=== PATIENT | male | born 1945 | race Caucasian/White ===

== ENCOUNTER 2021-04-23 10:36 | Outpatient (REF) | payer OTHER, SELFPAY ==
[2021-04-23 13:51] LABS: MANUAL DIFF FLAG NO
[2021-04-23 14:03] LABS: Basophils Absolute Auto 0.1 X10*3/uL (0.0-0.2); Basophils Percent Auto 0.9 % (0-2); Eosinophils Absolute Auto 0.1 X10*3/uL (0.0-0.4); Eosinophils Percent Auto 1.6 % (0-4); Hematocrit 39.4 % (42-52); Hemoglobin 13.6 g/dl (14.0-18.0); Imm Gran Abs Auto 0.03 X10*3/uL (0.00-0.03); Imm Gran Pct Auto 0.4 % (0.0-0.4); Lymphocytes Absolute Auto 2.5 X10*3/uL (1.2-4.9); Lymphocytes Percent Auto 31.3 % (20-40); Mean Corpuscular HGB Conc 34.5 g/dl (31.0-36.0); Mean Corpuscular Hemoglobin 31.3 pg (27.0-33.0); Mean Corpuscular Volume 90.6 fL (80-98); Mean Platelet Volume 10.5 fL (9.4-12.4); Monocytes Absolute Auto 0.8 X10*3/uL (0.1-1.2); Monocytes Percent Auto 9.3 % (2-11); Neutrophils Absolute Auto 4.6 X10*3/uL (2.0-8.3); Neutrophils Percent Auto 56.5 % (45-73); Platelet Count 264 X10*3/uL (160-400); Red Blood Count 4.35 X10*6/uL (4.60-5.80); Red Cell Distribution Width 12.8 % (11.0-16.0); White Blood Count 8.1 X10*3/uL (4.8-10.8)
[2021-04-23 14:21] LABS: Alanine Aminotransferase 25 U/L (0-40); Albumin Level 4.2 g/dL (3.5-5.0); Alkaline Phosphatase 54 U/L (39-117); Anion Gap 15 (12-20); Aspartate Amino Transferase 19 U/L (5-37); Bilirubin Total 0.9 mg/dL (0.0-1.0); Blood Urea Nitrogen 12 mg/dL (9-16); Calcium 9.1 mg/dL (8.4-10.2); Carbon Dioxide 24 mmol/L (22-29); Chloride 104 mmol/L (96-108); Cholesterol 197 mg/dL; Estimated Glomerular Filt Rate > 60; Glucose Fasting 99 mg/dL (60-99); HDL Cholesterol 43 mg/dL; LDL Cholesterol Calculated 132 mg/dl; Potassium 3.8 mmol/L (3.3-5.1); Sodium 139 mmol/L (135-145); Total Protein 7.3 g/dL (6.5-8.0); Triglycerides 113 mg/dL
[2021-04-23 14:42] LABS: Prostate Specific Antigen 2.47 ng/mL (<0.05-4.0)
== END 2021-04-23 10:37 | disposition home or self-care (01) ==
LOC: HO.10HDL 10:36
PROVIDERS: Visit Provider Internal Medicine Medical Oncology
DX: I10 Essential (primary) hypertension (principal); E66.3 Overweight; Z12.5 Encounter for screening for malignant neoplasm of prostate
CPT/HCPCS: 36415; 80053; 80061; 84153; 85025

== ENCOUNTER 2021-09-18 08:11 | Day surgery (SDC) | payer OTHER, SELFPAY ==
[2021-09-09 14:01] VITALS: BMI 29.5
--- NOTE | 2021-09-17 10:04 | P.CONAN_ITS ---
Documented by User: Nadiya Gomez NP 09/17/21 10:05 HPI - Anesthesia Eval Consult details Narrative: 75yo M for Colonoscopy [facility] Past Medical History Medical History Arthritis COVID-19 vaccine series completed HTN (hypertension) Skin cancer Surgical History Surgical History Hx of cataract extraction Social History Social History Are you a primary social worker palliative care to a significant other at home: No Do you presently have visiting nurse or other home services: No Patient Tobacco Use Status: Never used Tobacco Use of substances other than those prescribed or required for medical reasons: No Have you been hit, kicked, punched, or otherwise hurt by someone within the past year? If so, by whom?: No Are you DNR?: No Advance Directives: No Advance Directives Information Provided: Yes (brochure mailed) Advance Directives on File: No Recently lost weight without trying: No Eating poorly because of decreased appetite: No Nutrition Risks: No Nutritional Risk Poor oral hygiene: No Meds Allergies Allergy/AdvReac Type Severity Reaction Status Date / Time No Known Allergies Allergy Verified 09/18/21 08:32 Home Medications Medication Instructions Recorded Confirmed Last Taken Type amlodipine 10 mg tablet 10 mg PO DAILY 09/09/21 09/09/21 09/18/21 06:30 History hydrochlorothiazide 12.5 mg tablet 12.5 mg PO DAILY 09/09/21 09/09/21 Unknown History Exam Exam Date and Time: September 17, 2021 1004 Height,Weight and Vital Signs: Height 5 ft 6 in Weight 83.007 kg Pertinent Lab Results Pertinent Lab Results: Laboratory Tests 04/23/21 04/23/21 10:48 10:48 WBC 8.1 Hgb 13.6 L Hct 39.4 L Plt Count 264 Sodium 139 Potassium 3.8 Chloride 104 Carbon Dioxide 24 BUN 12 Creatinine 0.98 Assessment and Plan Assessment Anesthesia Assessment: Chart Reviewed Documented by User: Tenzin Alex MD 09/18/21 10:08 [facility] Past Medical History Medical History Arthritis COVID-19 vaccine series completed HTN (hypertension) Skin cancer Family History Family history of problems with anesthesia: No Surgical History Surgical History Hx of cataract extraction History of Problems with Anesthesia: No Social History Social History Are you a primary social worker palliative care to a significant other at home: No Do you presently have visiting nurse or other home services: No Patient Tobacco Use Status: Never used Tobacco Use of substances other than those prescribed or required for medical reasons: No Have you been hit, kicked, punched, or otherwise hurt by someone within the past year? If so, by whom?: No Are you DNR?: No Advance Directives: No Advance Directives Information Provided: Yes (brochure mailed) Advance Directives on File: No Recently lost weight without trying: No Eating poorly because of decreased appetite: No Nutrition Risks: No Nutritional Risk Poor oral hygiene: No Meds Allergies Allergy/AdvReac Type Severity Reaction Status Date / Time No Known Allergies Allergy Verified 09/18/21 08:32 Home Medications Medication Instructions Recorded Confirmed Last Taken Type amlodipine 10 mg tablet 10 mg PO DAILY 09/09/21 09/09/21 09/18/21 06:30 History hydrochlorothiazide 12.5 mg tablet 12.5 mg PO DAILY 09/09/21 09/09/21 Unknown History Exam Airway Mallampati Class: II TM Dist: >3cm Neck ROM: Full Loose/Missing/Broken Teeth: No Heart: ok Lungs: ok Assessment and Plan Final Anesthetic Review Family History of Problems with Anesthesia: No History of Problems with Anesthesia: No NPO: Yes ASA Class: II Final Preanesthetic Review: No Changes in Pt Med Stat, Meds/Allgs Chart Reviewed, Consent Obtained/Reviewed and Anes Risks/Benef Reviewed Patient Risk: Intermediate Procedure Risk: Low Anesthetic Plan Anesthetic Plan: MAC: and Agree w/ Assess. and Plan Disposition: Standard PACU
[2021-09-18 08:44] VITALS: BP 169/93; PULSE 88; RESP 16; TEMP 37.1; O2SAT 94
[2021-09-18] MEDS: Lactated Ringers 1,000 ML 100 ML IVCONT (08:59)
--- NOTE | 2021-09-18 09:55 | MHC.SHP ---
Pre-Procedural Eval Section A Date of Service: 09/18/21 Section B Chief Complaint: screening Details of Present Illness: see h&p no changes Relevant Family History (Specify if Yes): No Relevant Social History: None Present Medications: see Short Stay Collaborative assessment Medical History: No relevant PMH History of Previous Operations: No relevant previous surgery Allergies: Allergies Allergy/AdvReac Type Severity Reaction Status Date / Time No Known Allergies Allergy Verified 09/18/21 08:32 Review of Systems Sugical H&P ROS: Negative: Constitution, Cardiovascular, Respiratory, Neurological, Psychiatric, Hem-Onc, Allergic/Immunologic, Gastrointestinal, Genitourinary, Musculoskeletal, Integumentary, Endocrine and Eyes/Ears/Nose/Throat Exam Surgical H&P Exam: Normal: HEENT, Normal: Heart, Normal: Lungs, Normal: Extremities, Normal: Abdomen, Normal: Skin and Normal: Neurological Plan Diagnosis/Plan: Unchanged I have reviewed the history and physical and performed a pertinent physical examination on my patient. No changes have occurred unless specified.
--- NOTE | 2021-09-18 10:29 | PM.OP ---
Brief Operative Note Date of Service: 09/18/21 Pre-op diagnosis: screening Post-op diagnosis: same (colon polyp) Procedure: colonoscopy Surgeon: Young Brown Anesthesia: MAC Was an Cartography Professor used for this Procedure?: No Estimated blood loss (mL): 2 Pathology: other (polyp cecum) Condition: stable Disposition: PACU
[2021-09-18 10:33] VITALS: TEMP 36.5
[2021-09-18 10:44] VITALS: BP 86/51; PULSE 55; RESP 18; O2SAT 92
[2021-09-18 10:45] VITALS: BP 105/63; PULSE 59; RESP 18; O2SAT 93
[2021-09-18 10:48] VITALS: BP 110/59; PULSE 54; RESP 16; TEMP 36.3; O2SAT 96
--- NOTE | 2021-09-18 11:12 | OP_ITS ---
SURGEON: Young Brown MD INDICATIONS: Colon cancer screening. PREOPERATIVE DIAGNOSIS: POSTOPERATIVE DIAGNOSIS: PROCEDURE PERFORMED: Colonoscopy to the terminal ileum with biopsy. ESTIMATED BLOOD LOSS: COMPLICATIONS: ANESTHESIA: ASSISTANTS: SPECIMENS: MEDICATIONS: Monitored anesthesia care. DESCRIPTION OF PROCEDURE: History and physical were performed. The risks and benefits of the procedure were explained to the patient. Informed consent was obtained. The patient was placed in the left lateral decubitus position. A digital rectal exam was performed and was found to be normal. The Olympus pediatric video colonoscope was introduced into the rectum and advanced to the cecum without difficulty. The cecum was identified by transillumination, palpation, and identification of ileocecal valve. Examination was performed. The scope was removed. He tolerated the procedure well and was sent to recovery area in stable condition. FINDINGS: The terminal ileum was normal. The visualized colonic mucosa was normal just above the ileocecal valve. In the cecum, was a less than 5 mm sessile polyp, which was removed with biopsy forceps. No other polyps were identified. There was [id number] sigmoid diverticulosis. Retroflexed examination showed small internal hemorrhoids. The quality of the prep was good. IMPRESSION: Colon polyp. RECOMMENDATION: Follow up biopsy results. MD GRACE Gong/SARA / [id number]
== END 2021-09-18 11:31 | disposition home or self-care (01) ==
PROVIDERS: PCP Internal Medicine Medical Oncology; Visit Provider Internal Medicine Gastroenterology
PROC: 0DJD8ZZ Inspection of Lower Intestinal Tract, Via Natural or Artificial Opening Endoscopic (ICD-10-PCS; CPT 45378; principal; 2021-09-18 09:20)
DX: Z12.11 Encounter for screening for malignant neoplasm of colon (principal); D12.0 Benign neoplasm of cecum; K57.30 Diverticulosis of large intestine without perforation or abscess without bleeding; K64.8 Other hemorrhoids; I10 Essential (primary) hypertension; M19.042 Primary osteoarthritis, left hand; M19.041 Primary osteoarthritis, right hand; Z85.828 Personal history of other malignant neoplasm of skin; Z79.899 Other long term (current) drug therapy
CPT/HCPCS: 45380; 88305; J3010

== ENCOUNTER 2022-12-02 09:10 | Outpatient (REF) | payer MEDICARE, SELFPAY ==
[2022-12-02 10:27] LABS: MANUAL DIFF FLAG NO
[2022-12-02 10:33] LABS: Basophils Absolute Auto 0.1 X10*3/uL (0.0-0.2); Basophils Percent Auto 0.7 % (0-2); Eosinophils Absolute Auto 0.2 X10*3/uL (0.0-0.4); Eosinophils Percent Auto 2.4 % (0-4); Hematocrit 40.3 % (42.0-52.0); Imm Gran Abs Auto 0.01 X10*3/uL (0.00-0.03); Imm Gran Pct Auto 0.1 % (0.0-0.4); Lymphocytes Absolute Auto 2.4 X10*3/uL (1.2-4.9); Lymphocytes Percent Auto 33.1 % (20-40); Mean Corpuscular HGB Conc 34.7 g/dl (31.0-36.0); Mean Corpuscular Hemoglobin 30.8 pg (27.0-33.0); Mean Corpuscular Volume 88.8 fL (80.0-98.0); Mean Platelet Volume 10.3 fL (9.4-12.4); Monocytes Absolute Auto 0.7 X10*3/uL (0.1-1.2); Monocytes Percent Auto 8.8 % (2-11); Neutrophils Absolute Auto 4.1 x10*3/uL (2.0-8.3); Neutrophils Percent Auto 54.9 % (45-73); Platelet Count 268 X10*3/uL (160-400); Red Blood Count 4.54 X10*6/uL (4.60-5.80); White Blood Count 7.4 X10*3/uL (4.8-10.8)
[2022-12-02 10:52] LABS: Alanine Aminotransferase 20 U/L (0-40); Alkaline Phosphatase 50 U/L (39-117); Anion Gap 11 (12-20); Aspartate Amino Transferase 17 U/L (5-37); Bilirubin Total 0.8 mg/dL (0.0-1.0); Blood Urea Nitrogen 13 mg/dL (9-16); Calcium 9.1 mg/dL (8.4-10.2); Carbon Dioxide 27 mmol/L (22-29); Chloride 107 mmol/L (96-108); Cholesterol 207 mg/dL; Estimated Glomerular Filt Rate > 60; Glucose Fasting 91 mg/dL (60-99); HDL Cholesterol 40 mg/dL; LDL Cholesterol Calculated 145 mg/dl; Potassium 3.9 mmol/L (3.3-5.1); Sodium 141 mmol/L (135-145); Triglycerides 114 mg/dL
[2022-12-02 11:11] LABS: Prostate Specific Antigen 2.93 ng/mL (<0.05-4.0)
== END 2022-12-02 09:11 | disposition home or self-care (01) ==
LOC: HO.10HDL 09:10
PROVIDERS: Visit Provider Internal Medicine Medical Oncology
DX: Z12.5 Encounter for screening for malignant neoplasm of prostate (principal); I10 Essential (primary) hypertension; E66.9 Obesity, unspecified
CPT/HCPCS: 36415; 80053; 80061; 84153; 85025

== ENCOUNTER → 2023-01-21 09:05 | Outpatient (BNVA) | payer MEDICARE, SELFPAY | PROVIDERS: PCP Internal Medicine Medical Oncology; Referring Provider Internal Medicine Medical Oncology; Visit Provider Surgery | DX: K40.90 Unilateral inguinal hernia, without obstruction or gangrene, not specified as recurrent (principal); I10 Essential (primary) hypertension | CPT/HCPCS: 99202 ==

== ENCOUNTER → 2023-06-01 07:58 | Outpatient (REF) | payer MEDICARE, SELFPAY ==
--- NOTE | 2023-06-01 08:01 | CA_ITS ---
Transthoracic Echocardiogram Patient (Last, First, Middle): Jarett Maynard J Gender: Male Date of : 1945 Age: 77 Procedure Date: 06/01/2023 Procedure Type: Transthoracic Echocardiogram Location: OP Height: 167.64 cm Weight: 78.47 kg BSA: 1.88 m2 Heart Rate: bpm BP: 145 / 75 mmHg Associate Professor Of Archaeology: SONIA/SUSAN Referring MD: Zacarias Zurita MD Symptoms: R01.1 SYSTIC MURMUR Study Quality: Fair Conclusions: - 1. Normal LV ejection fraction of 60 65% with moderate LVH with elevated filling pressures 2. Mildly dilated left atrium 3. Jkfx-we-wqbbhsxr aortic stenosis 4. Mildly dilated ascending aorta at 3.9 cm 5. Normal RV systolic pressure 6. No pericardial effusion Findings Left Ventricle Normal left ventricular size and systolic function. There is moderately increased left ventricular wall thickness. The visually estimated ejection fraction is between 60-65%. Spectral Doppler is indicative of an impaired relaxation filling pattern. Elevated left atrial and left ventricular end diastolic pressures. E/E prime ratio is >15, consistent with elevated filling pressures. Right Ventricle Normal right ventricular cavity size and systolic function. Atria The left atrium is mildly dilated. There is lipomatous hypertrophy of the interatrial septum. There is no evidence of interatrial shunt. The right atrium is likely dilated. Aortic Valve There is mild calcification of the aortic valve. There is mild thickening of the aortic valve. There is mild to moderate aortic valve stenosis. The peak aortic gradient is 16 mmHg.The mean gradient is 9 mmHg. There is no aortic valve regurgitation. Mitral Valve There is mild anterior and moderate posterior mitral leaflet thickening. There is mild mitral annular calcification. There is trace mitral valve regurgitation. There is no mitral valve stenosis. Pulmonic Valve The pulmonic valve was not well visualized. Tricuspid Valve Likely normal tricuspid valve structure and function. There is mild tricuspid valve regurgitation. The right ventricular systolic pressure is normal. The right ventricular systolic pressure is 30 mmHg. Normal right atrial pressure. There is no evidence of pulmonary hypertension. Great Vessels The pulmonary artery was not well visualized. There is mild dilatation of the ascending aorta measuring 3.90 cm. Venous The inferior vena cava is normal in size and collapses greater than 50% with inspiration. Pericardium/Pleural There is no evidence of pericardial effusion. Prior Study Comparison No prior study available for comparison. Measurements 2D Linear Measurements IVSd: 1.41 0.6-0.9/0.6-1.0 cm LVIDd: 3.74 3.9-5.3/4.2-5.9 cm LVIDd Index: 1.99 2.4-3.2/2.2-3.1 cm/m2 LVIDs: 2.35 2.0-3.6 cm LVPWd: 1.42 0.7-1.1 cm LA Diam: 3.80 2.7-3.8/3.0-4.0 cm LAIDs Index: 2.02 1.5-2.3 cm/m2 LV Mass: 240.53 67-162/88-224 g LV Mass Index: 127.94 43-95/49-115 g/m2 LVOT Diam: 2.00 3.0+(-)1.3 cm Mitral Valve MV Pk E: 0.97 MV PK A: 1.08 MV Decel Time: 249.00 E/A: 0.90 E'Lateral: 3.81 E'Medial: 3.70 E/E' Med: 26.30 E/E' Lat: 25.50 PHT: 73.00 MVA PHT: 3.01 Decel Alexander: 3.90 Aortic Valve AoV Pk Michael: 1.97 AoV Mn Michael: 1.41 AoV VTI: 0.54 AoV Pk Grad: 16.00 Aov Mn Grad: 9.00 SUDHAKAR Cont.VTI: 1.37 LVOT LVOT Pk Michael: 0.91 LVOT Mn Michael: 0.63 LVOT VTI: 0.24 LVOT Pk Grad: 3.00 LVOT Mn Grad: 2.00 LVOT Diam: 2.00 LVOT Area: 3.14 Diastolic Function MV Pk E: 0.97 MV Pk A: 1.08 E/A: 0.90 E'Medial: 3.70 E/E' Med: 26.30 E' Laterial: 3.81 E/E' Lat: 25.50 Right Ventricle TAPSE (mm): 19.80 TVS' Michael: 11.10 Tricuspid Valve TR Pk Michael: 2.59 TR Pk Grad: 27.00 RA Press: 3.00 RVSP: 30.00 Great Vessels Aorta Sinus of Valsalva: 3.60 2.0-3.5 cm Ao Asc: 3.90 2.1-3.4 cm Pulmonary Valve PV Pk Michael: 1.00 Peak PV Grad: 4.00 Updated in Other Vendor System with Status of Final Oniel Lopez MD electronically signed on 06/02/2023 4:56:46 PM with status of Final
== END ==
LOC: HO.CARD 07:58
PROVIDERS: PCP Internal Medicine Medical Oncology; Visit Provider Internal Medicine Medical Oncology
DX: R01.1 Cardiac murmur, unspecified (principal)
CPT/HCPCS: 93306

== ENCOUNTER → 2023-06-01 08:01 | Outpatient (BNV) | payer MEDICARE, SELFPAY | PROVIDERS: PCP Internal Medicine Medical Oncology; Visit Provider Internal Medicine Cardiovascular Disease | DX: I35.0 Nonrheumatic aortic (valve) stenosis (principal) | CPT/HCPCS: 93306 ==

== ENCOUNTER 2023-07-27 05:44 | Day surgery (SDC) | payer MEDICARE, SELFPAY ==
--- NOTE | 2023-07-22 12:03 | P.CONAN_ITS ---
HPI - Anesthesia Eval Consult details Narrative: 77yo M for Right Hernia Repair Inguinal with mesh PMFSH Active Problems Active Problems: All Active Problems (Updated 01/21/23 @ 09:12 by Buzz Campbell MD) Right inguinal hernia (Acute) Past Medical History Medical History Right inguinal hernia COVID-19 vaccine series completed Arthritis Skin cancer HTN (hypertension) Family History Family history of problems with anesthesia: No Surgical History Surgical History Hx of cataract extraction History of Problems with Anesthesia: No Social History Social History Are you a primary physician primary care sports medicine to a significant other at home: No Do you presently have visiting nurse or other home services: No Patient Tobacco Use Status: Never used Tobacco Meds Allergies Allergy/AdvReac Type Severity Reaction Status Date / Time No Known Allergies Allergy Verified 01/21/23 09:14 Home Medications Medication Instructions Recorded Confirmed Last Taken Type amlodipine 10 mg tablet 10 mg PO DAILY 09/09/21 07/27/23 07/27/23 History hydrochlorothiazide 12.5 mg tablet 12.5 mg PO DAILY 09/09/21 01/21/23 Unknown History Exam Pertinent Lab Results Pertinent Lab Results: Laboratory Tests 12/02/22 09:24 WBC 7.4 Hgb 14.0 Hct 40.3 L Plt Count 268 Sodium 141 Potassium 3.9 Chloride 107 Carbon Dioxide 27 BUN 13 Creatinine 0.92 Narrative Narrative: ECHO 05/2023 Conclusions: - 1. Normal LV ejection fraction of 60 65% with moderate LVH with elevated filling pressures 2. Mildly dilated left atrium 3. Ukpb-[id number]-dfbwlvmq aortic stenosis 4. Mildly dilated ascending aorta at 3.9 cm 5. Normal RV systolic pressure 6. No pericardial effusion Assessment and Plan Assessment Anesthesia Assessment: Chart Reviewed Final Anesthetic Review Family History of Problems with Anesthesia: No History of Problems with Anesthesia: No
[2023-07-27] VITALS (7 sets, daily range): BP systolic 126–164; BP diastolic 59–76; PULSE 55–71; RESP 16–20; TEMP 36.1; O2SAT 93–98
[2023-07-27] MEDS: Lactated Ringers 1,000 ML 100 ML IVCONT (06:30)
--- NOTE | 2023-07-27 07:39 | MHC.SHP ---
Pre-Procedural Eval Section A Date of Service: 07/27/23 The patient is an INPATIENT: No Changes since office visit: Yes Patient answered all questions; No Cold of Flu in the past 2 weeks, No New Medical Problems and No Changes in Medication The History & Physical has been completed within 30 days and I have reviewed it.: Yes Section B Chief Complaint: Unilateral inguinal hernia, without obstruction or Allergies: Allergies Allergy/AdvReac Type Severity Reaction Status Date / Time No Known Allergies Allergy Verified 01/21/23 09:14 Plan Diagnosis/Plan: Unchanged I have reviewed the history and physical and performed a pertinent physical examination on my patient. No changes have occurred unless specified. Time Spent With Patient Time: Total time managing care of this patient today ____ minutes.
--- NOTE | 2023-07-27 07:50 | HO.ANESPROP2 ---
[facility] Active Problems Active Problems: All Active Problems (Updated 01/21/23 @ 09:12 by Buzz Campbell MD) Right inguinal hernia (Acute) Past Medical History Medical History Right inguinal hernia COVID-19 vaccine series completed Arthritis Skin cancer HTN (hypertension) Functional capacity: independent ambulation Family History Family history of problems with anesthesia: No Surgical History Surgical History Hx of cataract extraction History of Problems with Anesthesia: No Social History Social History Are you a primary customer care professional to a significant other at home: No Do you presently have visiting nurse or other home services: No Patient Tobacco Use Status: Never used Tobacco Are you DNR?: No Advance Directives: No Advance Directives Information Provided: Yes Nutrition Risks: No Nutritional Risk Meds Allergies Allergy/AdvReac Type Severity Reaction Status Date / Time No Known Allergies Allergy Verified 01/21/23 09:14 Active Medications: Current Medications Lactated Ringer's (Lr) 1,000 mls @ 100 mls/hr IVCONT .Q10H AMANUEL Last Admin: 07/27/23 06:30 Dose: 100 mls/hr Home Medications Medication Instructions Recorded Confirmed Last Taken Type amlodipine 10 mg tablet 10 mg PO DAILY 09/09/21 07/27/23 07/27/23 History hydrochlorothiazide 12.5 mg tablet 12.5 mg PO DAILY 09/09/21 01/21/23 Unknown History Exam Height,Weight and Vital Signs: Height 5 ft 4 in Weight 82.917 kg Last Vital Signs Temp 97 F 07/27/23 06:27 Pulse 55 07/27/23 06:27 Resp 20 07/27/23 06:27 BP 164/76 H 07/27/23 06:27 Pulse Ox 96 07/27/23 06:27 O2 Del Method Room Air 07/27/23 06:27 Airway Mallampati Class: II TM Dist: >3cm Neck ROM: Full Heart: RRR Lungs: CTA Assessment and Plan Assessment Anesthesia Assessment: Anesthesia Plan Discussed Final Anesthetic Review Family History of Problems with Anesthesia: No History of Problems with Anesthesia: No NPO: Yes ASA Class: II Final Preanesthetic Review: Meds/Allgs Chart Reviewed, Consent Obtained/Reviewed and Anes Risks/Benef Reviewed Patient Risk: Low Procedure Risk: Low Anesthetic Plan Anesthetic Plan: GA Disposition: Standard PACU
--- NOTE | 2023-07-27 08:24 | W.PM.OPN ---
Operative Note Operative Note Date of Service: 07/27/23 Narrative: Preoperative diagnosis: Reducible right inguinal hernia Postoperative diagnosis: Same Procedure: Repair of right inguinal hernia with mesh Surgeon: Buzz Campbell MD Sheet Metal Duct Installer: Edna Byrd PA-C, MENA Ortiz Anesthesia: General LMA Indications for procedure: 77-year-old male patient presenting with a painful lump in the right groin found on exam combination to have a palpable hernia which increases with lifting and straining and reduces with light pressure. Operative findings: Indirect right inguinal hernia Specimen: Lipoma of the cord Estimated blood loss: Less than 2 mL Complications: None Procedure details: Patient was brought to the OR and placed in a supine position. After administering general anesthesia the patient's abdomen was prepped with ChloraPrep and draped in a sterile fashion. A surgical time-out was called the consent confirmed. Patient received preoperative antibiotics and Venodyne boots were in place. Local anesthesia was infiltrated over the right inguinal ligament. Incision was then made with a scalpel measuring approximately 6 cm. This carried out through subcutaneous tissue, past Lurdes's fashion up to the external oblique aponeurosis. Additional local was infiltrated below the aponeurosis. This was then incised with the scalpel wide with the Metzenbaum scissors. The spermatic cord was then dissected free from the surrounding inguinal canal. This was retracted using a [place] drain. The cord was noted to be quite fatty suggestive of a indirect hernia. The floor of the inguinal canals found to be intact without evidence of a direct hernia. Fibers of the cremasteric muscle were then in a large lipoma of the cord dissected free. This was dissected down to the internal ring ligated and excised. This was sent as above the specimen. A small hernia sac was also dissected free to the internal ring and reduced into the abdominal cavity. The preperitoneal space was then further dissected using an open Ray-Berry sponge through the internal ring. A large extended PHS mesh was then obtained. The circular underlay was deployed within the internal ring any overlay secured to the pubic tubercle, conjoined tendon, and shelving edge of the inguinal ligament using 0 Polysorb suture. A slit was made in the mesh at the level of the internal ring and the mesh wrapped around the spermatic cord this was secured to the shelving edge again using the 0 Polysorb suture. The internal ring was then measured and felt to be loose. An additional suture was placed at the internal ring to allow the tip of the index finger pass. The wounds were then irrigated with saline solution and suctioned dry. External oblique aponeurosis was then closed using a running 2-0 Polysorb suture. 8 mL of Zenrelef was then infiltrated below the external oblique aponeurosis. Lurdes's fascia was then closed using interrupted 3-0 Polysorb sutures. Dermis was closed using interrupted 3-0 Polysorb sutures. Skin was closed using a running subcuticular 4-0 Polysorb suture. Steri-Strips, 2 x 2 gauze and Tegaderm were then applied. The patient tolerated the procedure well. Sponge, instrument, and needle counts reported as correct. The patient was transferred to PACU in stable condition.
--- NOTE | 2023-07-27 12:32 | HO.POSTANES ---
Post Anesthesia Evaluation Post Anesthesia Evaluation Date of Service: 07/27/23 Vital Signs: Vital Signs Temp Pulse Resp BP Pulse Ox O2 Del Method O2 Flow Rate 07/27/23 09:29 97.0 F 64 16 135/67 93 Room Air 07/27/23 09:14 62 16 133/68 93 Room Air 07/27/23 08:59 64 16 137/72 93 Nasal Cannula 2 07/27/23 08:54 67 16 136/74 93 Nasal Cannula 2 07/27/23 08:49 71 16 126/66 93 Nasal Cannula 2 07/27/23 08:44 97.0 F 70 16 136/59 L 98 Shovel Mask 8 07/27/23 06:27 97 F 55 20 164/76 H 96 Room Air Anesthesia: General LMA Mental Status: Awake Pain Control: Satisfactory Nausea/Vomiting: None Hydration: Adequate Anesthesia-Related Issues: No Anes. Related Issues
== END 2023-07-27 10:04 | disposition home or self-care (01) ==
PROVIDERS: PCP Internal Medicine Medical Oncology; Visit Provider Surgery
PROC: (CPT 49505; principal; 2023-07-27 07:30)
DX: K40.90 Unilateral inguinal hernia, without obstruction or gangrene, not specified as recurrent (principal); D17.6 Benign lipomatous neoplasm of spermatic cord; I10 Essential (primary) hypertension; M19.042 Primary osteoarthritis, left hand; M19.041 Primary osteoarthritis, right hand; Z85.828 Personal history of other malignant neoplasm of skin; Z79.899 Other long term (current) drug therapy
CPT/HCPCS: 49505; 88304; C1781; C9088; J0690; J1100; J2250; J2405; J2704; J2795; J3010

== ENCOUNTER → 2023-07-27 05:44 | Outpatient (BNV) | payer MEDICARE, SELFPAY | PROVIDERS: PCP Internal Medicine Medical Oncology; Visit Provider Surgery | DX: K40.90 Unilateral inguinal hernia, without obstruction or gangrene, not specified as recurrent (principal) | CPT/HCPCS: 49505 ==

== ENCOUNTER 2023-08-05 09:55 | Outpatient (AMB) | payer MEDICARE, SELFPAY ==
--- NOTE | 2023-08-05 10:14 | MHC.OFFVIS ---
Intake Vital Signs 08/05/23 10:18 Height 5 ft 4 in Weight 178 lb BMI 30.6 BP 130/72 Blood Pressure Location Lt brachial Position Sitting Intake Visit Reasons: S/P RIH w/mesh Intake Note: Patient is seen in office for post op assessment post right inguinal hernia repair. Pt c/o: denies any concerns at the time of visit surgery: 07/27/23 Idea Man Required: No Accompanied by: Self / Same As Patient Allergies No Known Allergies Allergy (Verified 08/05/23 10:19) HPI HPI Comments History of Present Illness Details 77-year-old male patient status post repair of a right inguinal hernia with mesh on 07/27/2023. He returns today for his 1st postoperative visit. He reports feeling well and taking no pain medication. He denies any bleeding or discharge from his incision. [facility] Medical History Right inguinal hernia COVID-19 vaccine series completed Arthritis Skin cancer HTN (hypertension) Surgical History (Updated 08/03/23 @ 11:33 by SAVAGE Guzmán) History of right inguinal hernia repair (07/27/23) Hx of cataract extraction Social History Are you a primary hospice spiritual care coordinator to a significant other at home: No Do you presently have visiting nurse or other home services: No Patient Tobacco Use Status: Never used Tobacco Physical Exam Const General: no acute distress Nutritional Appearance: well nourished Orientation/consciousness: patient oriented x3 Resp Effort & Inspection: normal respiratory effort, no audible wheezes, no cough and no respiratory distress GI Other: Wounds are clean, dry, and intact without redness or discharge no hernia noted with Valsalva maneuver Inspection: Yes normal to inspection Palpation (GI): Soft to palpation, nontender, no guarding and not rigid Neuro General: patient oriented x3 Extrem General: Yes normal to inspection Assessment & Plan Assessment & Plan (1) Right inguinal hernia: Code(s): K40.90 - Unilateral inguinal hernia, without obstruction or gangrene, not specified as recurrent Plan 77-year-old male patient returning 1 week following repair of a right inguinal hernia with mesh. Tolerated the procedure well and did not require any pain medication. His wounds are clean, dry, and intact without evidence of hernia recurrence or infection. Should return in 1 month for follow-up examination. Should continue to avoid lifting greater than 10 lb until that point. Coding Level of Care Code Global (07345) Diagnoses Right inguinal hernia K40.90
[2023-08-05 10:18] VITALS: BP 130/72; BMI 30.6
== END 2023-08-05 10:26 | disposition home or self-care (01) ==
PROVIDERS: PCP Internal Medicine Medical Oncology; Visit Provider Surgery
DX: K40.90 Unilateral inguinal hernia, without obstruction or gangrene, not specified as recurrent (principal)
CPT/HCPCS: 99024

== ENCOUNTER → 2023-08-05 09:55 | Outpatient (BNVA) | payer MEDICARE, SELFPAY | PROVIDERS: PCP Internal Medicine Medical Oncology; Visit Provider Surgery | DX: Z48.815 Encounter for surgical aftercare following surgery on the digestive system (principal) | CPT/HCPCS: 99212 ==

== ENCOUNTER 2023-10-07 08:48 | Outpatient (AMB) | payer MEDICARE, SELFPAY ==
--- NOTE | 2023-10-07 09:02 | MHC.OFFVIS ---
Intake Vital Signs 10/07/23 09:03 Height 5 ft 4 in Weight 182 lb BMI 31.2 BP 139/68 Blood Pressure Location Lt brachial Position Sitting Pulse 60 Intake Visit Reasons: Post hernia repair, 2 month follow up Intake Note: Patient is seen in office for 2 month follow up visit, post right inguinal hernia repair. 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 He returns today for his 1st postoperative visit. He reports feeling well and taking no pain medication. He denies any bleeding or discharge from his incision. He feels his incision healed up great. [facility] Medical History Right inguinal hernia COVID-19 vaccine series completed Arthritis Skin cancer HTN (hypertension) Surgical History History of right inguinal hernia repair (07/27/23) Hx of cataract extraction Social History Are you a primary ambulatory care coordinator to a significant other at home: No Do you presently have visiting nurse or other home services: No Patient Tobacco Use Status: Never used Tobacco Physical Exam Const General: no acute distress Nutritional Appearance: well nourished Orientation/consciousness: patient oriented x3 Resp Effort & Inspection: normal respiratory effort, no audible wheezes, no cough and no respiratory distress GI Other: Wounds are clean, dry, and intact without redness or discharge no hernia noted with Valsalva maneuver Inspection: Yes normal to inspection Palpation (GI): Soft to palpation, nontender, no guarding and not rigid Neuro General: patient oriented x3 Extrem General: Yes normal to inspection Assessment & Plan Assessment & Plan (1) Right inguinal hernia: Code(s): K40.90 - Unilateral inguinal hernia, without obstruction or gangrene, not specified as recurrent Plan 77-year-old male patient returning 1 week following repair of a right inguinal hernia with mesh. Tolerated the procedure well and did not require any pain medication. His wounds are clean, dry, and intact without evidence of hernia recurrence or infection. He may resume normal activity without restriction and should follow up as needed. Coding Level of Care Code Global (86620) Diagnoses Right inguinal hernia K40.90
[2023-10-07 09:03] VITALS: BP 139/68; PULSE 60; BMI 31.2
== END 2023-10-07 09:29 | disposition home or self-care (01) ==
PROVIDERS: PCP Internal Medicine Medical Oncology; Visit Provider Surgery
DX: K40.90 Unilateral inguinal hernia, without obstruction or gangrene, not specified as recurrent (principal)
CPT/HCPCS: 99024

== ENCOUNTER → 2023-10-07 08:48 | Outpatient (BNVA) | payer MEDICARE, SELFPAY | PROVIDERS: PCP Internal Medicine Medical Oncology; Visit Provider Surgery | DX: Z09 Encounter for follow-up examination after completed treatment for conditions other than malignant neoplasm (principal); Z87.19 Personal history of other diseases of the digestive system | CPT/HCPCS: 99212 ==

== ENCOUNTER 2024-03-30 08:25 | Outpatient (REF) | payer MEDICARE, SELFPAY ==
[2024-03-30 08:38] LABS: MANUAL DIFF FLAG NO
[2024-03-30 08:54] LABS: Basophils Absolute Auto 0.1 X10*3/uL (0.0-0.2); Basophils Percent Auto 0.9 % (0-2); Eosinophils Absolute Auto 0.2 X10*3/uL (0.0-0.4); Eosinophils Percent Auto 2.9 % (0-4); Hematocrit 39.8 % (42.0-52.0); Hemoglobin 13.9 g/dl (14.0-18.0); Imm Gran Abs Auto 0.03 X10*3/uL (0.00-0.03); Imm Gran Pct Auto 0.4 % (0.0-0.4); Lymphocytes Absolute Auto 2.6 X10*3/uL (1.2-4.9); Lymphocytes Percent Auto 31.8 % (20-40); Mean Corpuscular HGB Conc 34.9 g/dl (31.0-36.0); Mean Corpuscular Hemoglobin 31.8 pg (27.0-33.0); Mean Corpuscular Volume 91.1 fL (80.0-98.0); Mean Platelet Volume 10.2 fL (9.4-12.4); Monocytes Absolute Auto 0.7 X10*3/uL (0.1-1.2); Monocytes Percent Auto 8.2 % (2-11); Neutrophils Absolute Auto 4.6 x10*3/uL (2.0-8.3); Neutrophils Percent Auto 55.8 % (45-73); Platelet Count 265 X10*3/uL (160-400); Red Blood Count 4.37 X10*6/uL (4.60-5.80); Red Cell Distribution Width 13.2 % (11.0-16.0); White Blood Count 8.2 X10*3/uL (4.8-10.8)
[2024-03-30 09:23] LABS: Alanine Aminotransferase 18 U/L (0-40); Alkaline Phosphatase 52 U/L (39-117); Anion Gap 11 (12-20); Aspartate Amino Transferase 17 U/L (5-37); Bilirubin Total 0.5 mg/dL (0.0-1.0); Blood Urea Nitrogen 16 mg/dL (9-16); Calcium 9.2 mg/dL (8.4-10.2); Carbon Dioxide 26 mmol/L (22-29); Chloride 111 mmol/L (96-108); Cholesterol 198 mg/dL (<200); Estimated Glomerular Filt Rate > 60; Glucose Fasting 102 mg/dL (60-99); HDL Cholesterol 47 mg/dL (>40); LDL Cholesterol Calculated 137 mg/dL (<100); Potassium 3.9 mmol/L (3.3-5.1); Sodium 144 mmol/L (135-145); Total Protein 7.2 g/dL (6.5-8.0); Triglycerides 73 mg/dL (<150)
[2024-03-30 09:45] LABS: Prostate Specific Antigen 3.68 ng/mL (<0.05-4.0)
== END 2024-03-30 08:26 | disposition home or self-care (01) ==
LOC: HO.LAB 08:25
PROVIDERS: PCP Internal Medicine Medical Oncology; Visit Provider Internal Medicine Medical Oncology
DX: I10 Essential (primary) hypertension (principal); E66.9 Obesity, unspecified; N40.0 Benign prostatic hyperplasia without lower urinary tract symptoms; Z12.5 Encounter for screening for malignant neoplasm of prostate
CPT/HCPCS: 36415; 80053; 80061; 84153; 85025

== ENCOUNTER 2024-10-25 08:43 | Outpatient (REF) | payer MEDICARE, SELFPAY ==
--- OUTSIDE RECORDS SUMMARY | 2024-10-25 08:52 | XMS_ITS | Patient Health Record ---
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 Name Role Phone Zacarias Zurita Primary Care Provider Allergies Allergen (clinical drug ingredient) Drug/Non Drug Allergy documented on EMR Reaction Allergy Type Onset Date Status No Known Drug Allergy Unknown Drug Allergy Active Results Component Value Reference Range Notes URINE DIP STICK Reviewed date:04/05/2024 09:17:12 AM Interpretation: Performing Lab: Notes/Report: SG 1.020 1.005 - 1.025 pH 5.0 5.0 - 9.0 KSENIA Negative Negative - NIT Negative Negative - PRO 100 Negative - Trace GLU Negative Negative - KET 5 Negative - UBG 0.2 0.1 - 1.8 LILIYA Negative 0.2 - 1.3 BLD Negative Negative - Complete Blood Count Auto Di ff Reviewed date:04/05/2024 09:34:19 AM Interpretation: Performing Lab:[facility], [address] [place] [id number] Notes/Report: White Blood Count 8.2 4.8-10.8 X10*3/uL Red Blood Count 4.37 4.60-5.80 X10*6/uL Hemoglobin 13.9 14.0-18.0 g/dl Hematocrit 39.8 42.0-52.0 % Mean Corpuscular Volume 91.1 80.0-98.0 fL Mean Corpuscular Hemoglobin 31.8 27.0-33.0 pg Mean Corpuscular HGB Conc 34.9 31.0-36.0 g/dl Red Cell Distribution Width 13.2 11.0-16.0 % Platelet Count 265 160-400 X10*3/uL Mean Platelet Volume 10.2 9.4-12.4 fL Neutrophils Percent Auto 55.8 45-73 % Imm Gran Pct Auto 0.4 0.0-0.4 % Lymphocytes Percent Auto 31.8 20-40 % Monocytes Percent Auto 8.2 2-11 % Eosinophils Percent Auto 2.9 0-4 % Basophils Percent Auto 0.9 0-2 % NRBC Pct Auto 0.0 0.0-0.2 /100WBC Neutrophils Absolute Auto 4.6 2.0-8.3 x10*3/u L Imm Gran Abs Auto 0.03 0.00-0.03 X10*3/uL Lymphocytes Absolute Auto 2.6 1.2-4.9 X10*3/u L Monocytes Absolute Auto 0.7 0.1-1.2 X10*3/uL Eosinophils Absolute Auto 0.2 0.0-0.4 X10*3/u L Basophils Absolute Auto 0.1 0.0-0.2 X10*3/uL NRBC Abs Auto 0.000 0.0-0.012 X10*3/uL Comprehensive [place]. Panel Fa st Reviewed date:04/05/2024 09:34:19 AM Interpretation: Performing Lab:[facility], [address] [place] [phone] Notes/Report: Sodium 144 135-145 mmol/L Potassium 3.9 3.3-5.1 mmol/L Chloride 111 96-108 mmol/L Carbon Dioxide 26 22-29 mmol/L Anion Gap 11 12-20 Blood Urea Nitrogen 16 9-16 mg/dL Creatinine 1.04 0.5-1.4 mg/dL Estimated Glomerular Filt Rate > 60 NOTE: For -[place] individuals, multiply the result by 1.210. Chronic Kidney Disease: Estimated GFR < 60 mL/min/1.73m2 Severe Kidney Disease: Estimated GFR < 15 mL/min/1.73m2 Glucose Fasting 102 60-99 mg/dL A fasting glucose from 100-125 mg/dl is considered impaired (pre-diabetes). Calcium 9.2 8.4-10.2 mg/dL Bilirubin Total 0.5 0.0-1.0 mg/dL Aspartate Amino Transferase 17 5-37 U/L Alanine Aminotransferase 18 0-40 U/L Total Protein 7.2 6.5-8.0 g/dL Albumin Level 4.0 3.5-5.0 g/dL Alkaline Phosphatase 52 39-117 U/L Lipid Panel Reviewed date:04/05/2024 09:34:19 AM Interpretation: Performing Lab:[facility], [address] [place] [phone] Notes/Report: Triglycerides 73 <150 mg/dL Desirable Triglyceride: less than 150 mg/dL Borderline High Triglyceride 150-199 mg/dL High Triglyceride: 200-499 mg/dL Very High Triglyceride: greater than or equal to 5OO mg/dL Cholesterol 198 <200 mg/dL Desirable Cholesterol: less than 200 mg/dL Borderline High Cholesterol: 200-239 mg/dL High Cholesterol: greater than 239 mg/dL LDL Cholesterol Calculated 137 <100 mg/dL Desirable LDL: less than 100 mg/dL Near Optimal/Above Optimal LDL: 110-129 mg/dL Borderline High LDL: 130-159 mg/dL High LDL: 160-189 mg/dL Very High LDL: greater than or equal to 190 mg/dL HDL Cholesterol 47 >40 mg/dL Desirable HDL: greater than 40 mg/dL Note: This HDL assay may give artificially low results in patients with liver disease. Prostate Specific Antigen Reviewed date:04/05/2024 09:34:19 AM Interpretation: Performing Lab:[facility], [address] [place] [phone] Notes/Report: Prostate Specific Antigen 3.68 <0.05-4.0 ng/mL PSA methodology: Miller Alinity i Chemiluminescent Microparticle Immunoassay (CMIA) Reason For Referral No Information Medications Medication SIG (Take, Route, Frequency, Duration) Notes Start Date End Date Status Norvasc 10 MG 1 tablet Orally Once a day Active Immunizations Vaccine Route Administration Date Status Comme nts COVID PFIZER Unknown 11/16/2020 Administered COVID PFIZER Unknown 10/19/2020 Administered COVID PFIZER Unknown 05/22/2021 Administered Influenza, quad IM Intramuscular 05/20/2022 Administered Social History Tobacco Use: Social History Observation Description Date Details (start date - stop date) Never Smoker NA - NA Sex Assigned At : Social History Observation Description Sex Assigned At Male Tobacco Use/Smoking Question Answer Notes Patient is a nonsmoker Additional Findings: Tobacco Non-User Aggressive non-smoker Alcohol Screen Question Answer Notes Did you have a drink contain ing alcohol in the past year? Yes How often did you have a dri nk containing alcohol in the past year? Monthly or less (1 point) How many drinks did you have on a typical day when you were drinking in the past year? 1 or 2 drinks (0 point) How often did you have 6 or more drinks on one occasion in the past year? Never (0 point) Points 1 Interpretation Negative Problems Problem Type SNOMED Code ICD Code Onset Dates Problem Status W/U Status Risk Notes Problem 105223215 Overweight (E66.3) Active confirmed He has lost 2 pounds now weighing 178 pounds. His body mass index is 29.6. We reviewed the elements of a weight loss diet. I recommended weight loss at a rate of one half of a pound per week. Problem Hypertension (95095868) Hypertension (I10) Active confirmed His blood pressure is stable at 134/80 and he has been compliant with his medications. He will return in the near future to recheck the blood pressure. Treatment will be implemented if it remains at this level. Problem Benign prostatic hyperplasia (934254424) BPH (benign prostatic hyperplasia) (N40.0) Active confirmed He has been rising from sleep once or twice a night to urinate. We have discussed lifestyle modification as a way to reduce nocturia. He was encouraged to resume the hydrochlorothi azide. Problem 014648953 History of skin cancer (Z85.828) Active confirmed No new lesions were noted today. Problem 189341392 Right inguinal hernia (K40.90) Active confirmed The hernia has been repaired. He will call me if anythingThe chest infection or bleeding occurs. Problem 817159351 Basal cell carcinoma (BCC), unspecified site (C44.91) Active confirmed No new skin cancers were noticed today. Vital Signs Heart Rate 55 /min 06/28/2024 Temperature 97.2 degrees Fahrenheit 06/28/2024 Blood pressure diastolic 80 mm Hg 06/28/2024 Height 65 in 06/28/2024 Blood pressure systolic 134 mm Hg 06/28/2024 Weight 178 lbs 06/28/2024 BMI 29.62 kg/m2 06/28/2024 Encounters Encounter Location Date Provider Diagnosis Zacarias Zurita III, MD [address] [place] [address] [address] [place] [phone] 10/26/2023 Zacarias Zurita Hypertension I10 ; Right inguinal hernia K40.90 ; History of skin cancer Z85.828 ; Obesity (BMI 30.0-34.9) E66.9 ; Basal cell carcinoma (BCC), unspecified site C44.91 and BPH (benign prostatic hyperplasia) N40.0 Zacarias Zurita III, MD [address] [place] [address] [place] [phone] 04/05/2024 Zacarias Zurita Hypertension I10 ; Right inguinal hernia K40.90 ; Basal cell carcinoma (BCC), unspecified site C44.91 ; BPH (benign prostatic hyperplasia) N40.0 and Overweight E66.3 Zacarias Zurita III, MD [address] [place] [address] [place] [phone] 06/28/2024 Zacarias Zurita Hypertension I10 ; Overweight E66.3 ; Right inguinal hernia K40.90 and History of skin cancer Z85.828 Zacarias Zurita III, MD [address] [place] [address] [place] [phone] 01/09/2024 Zacarias Zurita III, MD [address] [place] [address] [place] [phone] 06/28/2024 Zacarias Zurita Assessments Encounter Date Diagnosis (ICD Code) Assessment Notes Treatment Notes Treatment Clinical Notes 10/26/2023 Hypertension (ICD-10 - I10) His blood pressure is stable at 129/82 and he has been compliant with his medications. He will return in the near future to recheck the blood pressure. Treatment will be implemented if it remains at this level. 10/26/2023 Right inguinal hernia (ICD-10 - K40.90) The hernia has been repaired. He will call me if anythingThe chest infection or bleeding occurs. 04/05/2024 Hypertension (ICD-10 - I10) His blood pressure is stable at 137/71 and he has been compliant with his medications. He will return in the near future to recheck the blood pressure. Treatment will be implemented if it remains at this level. 04/05/2024 Right inguinal hernia (ICD-10 - K40.90) The hernia has been repaired. He will call me if anythingThe chest infection or bleeding occurs. 06/28/2024 Overweight (ICD-10 - E66.3) He has lost 2 pounds now weighing 178 pounds. His body mass index is 29.6. We reviewed the elements of a weight loss diet. I recommended weight loss at a rate of one half of a pound per week. 06/28/2024 Hypertension (ICD-10 - I10) His blood pressure is stable at 134/80 and he has been compliant with his medications. He will return in the near future to recheck the blood pressure. Treatment will be implemented if it remains at this level. 10/26/2023 History of skin cancer (ICD-10 - Z85.828) No new lesions were noted today. 04/05/2024 Basal cell carcinoma (BCC), unspecified site (ICD-10 - C44.91) No new skin cancers were noticed today. 06/28/2024 Right inguinal hernia (ICD-10 - K40.90) The hernia has been repaired. He will call me if anythingThe chest infection or bleeding occurs. 10/26/2023 Obesity (BMI 30.0-34.9) (ICD-10 - E66.9) His weight has been stable since his last visit.His BMI is 30. We had a long discussion about weight reduction. We discussed diet and nutrition. 04/05/2024 BPH (benign prostatic hyperplasia) (ICD-10 - N40.0) He has been rising from sleep once or twice a night to urinate. We have discussed lifestyle modification as a way to reduce nocturia. He was encouraged to resume the hydrochlorothiazide . 06/28/2024 History of skin cancer (ICD-10 - Z85.828) No new lesions were noted today. 10/26/2023 Basal cell carcinoma (BCC), unspecified site (ICD-10 - C44.91) No new skin cancers were noticed today. 04/05/2024 Overweight (ICD-10 - E66.3) He has lost several pounds in his body mass index is now 29. We reviewed his weight loss strategy diet and nutrition. He will continue to lose weight at a rate of one half of a pound per week. 10/26/2023 BPH (benign prostatic hyperplasia) (ICD-10 - N40.0) Plan Of Treatment Pending Test Test Name Order Date PROFILE, FASTING (COMPREHENSIVE METABOLI C) 04/23/2021 PROFILE, FASTING (COMPREHENSIVE METABOLI C) 06/28/2024 PROFILE, FASTING (COMPREHENSIVE METABOLI C) 10/26/2023 PROFILE, FASTING (COMPREHENSIVE METABOLI C) 08/20/2022 LIPID PANEL 08/20/2022 LIPID PANEL 04/23/2021 PSA, TOTAL 08/20/2022 PSA, TOTAL 04/23/2021 PSA, TOTAL 10/26/2023 CBC w DIFF 08/20/2022 CBC w DIFF 04/23/2021 Echocardiogram 04/22/2023 CBC WITH AUTO DIFF 10/26/2023 CBC WITH AUTO DIFF 06/28/2024 Lipid Panel 10/26/2023 Lipid Panel 06/28/2024 Next Appt Details Provider Name:Zacarias Zurita, 11/01/2024 09:00:00 AM, [address] [place] [address] [address], [place], [phone], Provider Name:Zacarias Zurita, 04/09/2025 09:30:00 AM, [address] [place] [address] [address], [place], [phone], Insurance Providers Payer Name Payer Address Payer Phone Subscriber Number Group Number Insured Name Patient Relationship to Insured Coverage Start Date Coverage End Date MEDICARE NGS [address] [place] [phone] [id number] Jarett Maynard Self - patient is the insured Medical (General) History Medical History History ICD Code Hypertension I10 skin cancer scal;p 2006 right inguinal hernia obesity Skin lesion left forearm site May 13 Obesity Surgical History Surgery Date(Month/Year) Cataract surgery 2013 Right inguinal Herniorrhaphy 07/27/23 arm and nose basal cell removal 12/2021 Skin lesion on his back 2019 Excision of skin cancer from scalp 2017 Hospitalization History Reason Date(Month/Year) No history
--- OUTSIDE RECORDS SUMMARY | 2024-10-25 08:52 | XMS_ITS ---
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 Name Role Phone Zacarias Zurita Primary Care Provider Allergies Allergen (clinical drug ingredient) Drug/Non Drug Allergy documented on EMR Reaction Allergy Type Onset Date Status No Known Drug Allergy Unknown Drug Allergy Active REASON FOR VISIT Immature cataracts, Hypertension, Right inguinal heernia, Skin cancer, Prostatic hypertrophy Medications Medication SIG (Take, Route, Frequency, Duration) Notes Start Date End Date Status Norvasc 10 MG 1 tablet Orally Once a day Active Social History Tobacco Use: Social History Observation Description Date Details (start date - stop date) Never Smoker NA - NA Sex Assigned At : Social History Observation Description Sex Assigned At Male Tobacco Use/Smoking Question Answer Notes Patient is a nonsmoker Additional Findings: Tobacco Non-User Aggressive non-smoker Vital Signs Temperature 97.2 degrees Fahrenheit 06/28/20 24 Blood pressure systolic 134 mm Hg 06/28/20 24 Blood pressure diastolic 80 mm Hg 024 Heart Rate 55 /min 06/28/2024 Height 65 in 06/28/2024 Weight 178 lbs 06/28/2024 BMI 29.62 kg/m2 06/28/2024 Encounters Encounter Location Date Provider Diagnosis Zacarias Zurita III, MD [address] [place] [address] [place] [address] 06/28/2024 Zacarias Zurita Hypertension I10 ; Overweight E66.3 ; Right inguinal hernia K40.90 and History of skin cancer Z85.828 Assessments Encounter Date Diagnosis (ICD Code) Assessment Notes Treat ment Notes Treatment Clinical Notes 06/28/2024 Hypertension (ICD-10 - I10) His blood pressure is stable at 134/80 and he has been compliant with his medications. He will return in the near future to recheck the blood pressure. Treatment will be implemented if it remains at this level. 06/28/2024 Overweight (ICD-10 - E66.3) He has lost 2 pounds now weighing 178 pounds. His body mass index is 29.6. We reviewed the elements of a weight loss diet. I recommended weight loss at a rate of one half of a pound per week. 06/28/2024 Right inguinal hernia (ICD-10 - K40.90) The hernia has been repaired. He will call me if anythingThe chest infection or bleeding occurs. 06/28/2024 History of skin cancer (ICD-10 - Z85.828) No new lesions were noted today. Plan Of Treatment Medication Medication Name Sig Start Date Stop Date Notes Norvasc 10 MG 1 tablet Orally Once a day Pending Test Test Name Order Date PROFILE, FASTING (COMPREHENSIVE METABOLI C) 06/28/2024 CBC WITH AUTO DIFF 06/28/2024 Lipid Panel 06/28/2024 Next Appt Details Follow Up: 4 Months, Reason: OV Provider Name:Zacarias Zurita, 11/01/2024 09:00:00 AM, [address] [place] [address] [address], [place], [address], Provider Name:Zacarias Zurita, 04/09/2025 09:30:00 AM, [address] [place] [address] [address], [place], [address], Progress Notes * Jarett MAYNARDDOB: [birth year] (78 yo M)Acc No.[id number]:06/28/2024 Progress Notes Patient:?Jarett MAYNARD Joyce Provider:?Zacarias Zurita MD :1945???Age:78 Y???Sex:Male Abiodun e:06/28/2024 [facility] Subjective: * Chief Complaints: * ???Immature cataractsHyperte nsionRight inguinal heerniaSkin cancerProstatic hypertrophy * HPI: ???COVID-19 Screening:?Questions?Have you experienced fever, chills, cough, sore throat, shortness of breath, difficulty breathing, muscle aches, loss of taste or smell??No ?Have you been exposed to the virus within the last 10 days??No ?Have you travelled internationally in the last 10 days??No ?Have you been exposed to COVID-19 in the past??No ???:? The patient, a 78-year-old male, presented with a history of cataract surgery in his right eye 10 years ago. He reported that he stopped using a water pill due to issues with incontinence, which has since improved. He also reported experiencing pain and decreased mobility in his right hand, which he attributes to arthritis. 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 He also reported occasional sleep disturbances, but overall his sleep has improved since stopping the water pill. Blood Sugar Level is 102. * ROS:?General/Constitutional:?Admits?pain,?only normal aches and pains.?Chills?denies.?Fatigue?admits.?Fever?denies.?ENT:?Decreased hearing?denies.?Respiratory:?Cough?denies.?Cardiovascular:?Chest pain with exertion?denies.?Dyspnea on exertion?denies.?Shortness of breath?denies.?Gastrointestinal:?Constipation?occasional.?Decreased appetite?denies.?Diarrhea?denies.?Heartburn?denies.?Nausea?denies.?Rectal bleeding?denies.?Vomiting?denies.?Hematology:?bruising?denies.?petechiae?denies.?Swollen glands?none have been noted.?Women Only:?Admits?Incontinence.?Genitourinary:?Frequent urination?once a night.?Musculoskeletal:?Muscle aches?denies.?Painful joints?denies.?Sciatica?denies.?Weakness?denies.?Skin:?Itching?denies.?Rash?denies.?Skin lesion(s)?denies.?Neurologic:?Difficulty speaking?denies.?Dizziness?denies.?Headache?denies.?Low back pain?denies.?Psychiatric:?Depressed mood?denies.? * Medical History:? * Surgical History:?Excision o f skin cancer from scalp 2017Skin lesion on his back 2019arm and nose basal cell removal 2Right inguinal Herniorrhaphy 07/27/23Cataract surgery 2013 * Hospitalization/Major Diagno stic Procedure:?No history * Family History:?Father: dece ased 69 yrs.?Mother: 56 yrs, diagnosed with HTN.?Spouse: alive.?1 brother(s) . .? He is not aware of any inherited cancer family syndrome. * Social History:?Tobacco Use:?Tobacco Use/Smoking?Patient is a?nonsmoker ?Additional Findings: Tobacco Non-User?Aggressive non-smoker ???He was born in [place]. He has been to [place] for 6 years. 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 He has no children. * Medications:?TakingNorvasc 1 0 MG Tablet 1 tablet Orally Once a day Taking Norvasc 10 MG Tablet 1 tablet Orally Once a day DiscontinuedhydroCHLOROthiazide 12.5 MG Capsule TAKE ONE CAPSULE BY MOUTH EVERY MORNING Medication List reviewed and reconciled with the patientDiscontinued hydroCHLOROthiazide 12.5 MG Capsule TAKE ONE CAPSULE BY MOUTH EVERY MORNING Medication List reviewed and reconciled with the patient * Allergies:?No Known Drug All ergyno[Allergies Verified] Objective: * Vitals:?Ht: 65, Wt:178, BMI: 29.62, BP:134/80, HR:55, Temp:97.2, Wt-k.74. * ???Past Orders: Lab:Prostate Specific Antige n * Collection Date 03/30/2024 12/02/2022 04/23/2021 Collection Time 08:36 AM 09:24 AM 10:48 AM Order Date 03/30/2024 12/02/2022 04/23/2021 Prostate Specific Antigen 3.68 (Ref Range: <0.05-4.0 ng/mL) 2.93 (Ref Range: <0.05-4.0 ng/mL) 2.47 (Ref Range: <0.05-4.0 ng/mL) * Lab:Lipid Panel * Collection Date 03/30/2024 12/02/2022 04/23/2021 Collection Time 08:36 AM 09:24 AM 10:48 AM Order Date 03/30/2024 12/02/2022 04/23/2021 Triglycerides 73 (Ref Range: <150 mg/dL) 114 (Ref Range: mg/dL) 113 (Ref Range: mg/dL) Cholesterol 198 (Ref Range: <200 mg/dL) 207 (Ref Range: mg/dL) 197 (Ref Range: mg/dL) LDL Cholesterol Calculated 137?H (Ref Range: <100 mg/dL) 145 (Ref Range: mg/dl) 132 (Ref Range: mg/dl) HDL Cholesterol 47 (Ref Range: >40 mg/dL) 40 (Ref Range: mg/dL) 43 (Ref Range: mg/dL) * Lab:Comprehensive [place]. Pane l Fast * Collection Date 03/30/2024 12/02/2022 04/23/2021 Collection Time 08:36 AM 09:24 AM 10:48 AM Order Date 03/30/2024 12/02/2022 04/23/2021 Sodium 144 (Ref Range: 135-145 mmol/L) 141 (Ref Range: 135-145 mmol/L) 139 (Ref Range: 135-145 mmol/L) Bilirubin Total 0.5 (Ref Range: 0.0-1.0 mg/dL) 0.8 (Ref Range: 0.0-1.0 mg/dL) 0.9 (Ref Range: 0.0-1.0 mg/dL) Aspartate Amino Transferase 17 (Ref Range: 5-37 U/L) 17 (Ref Range: 5-37 U/L) 19 (Ref Range: 5-37 U/L) Alanine Aminotransferase 18 (Ref Range: 0-40 U/L) 20 (Ref Range: 0-40 U/L) 25 (Ref Range: 0-40 U/L) Total Protein 7.2 (Ref Range: 6.5-8.0 g/dL) 7.0 (Ref Range: 6.5-8.0 g/dL) 7.3 (Ref Range: 6.5-8.0 g/dL) Albumin Level 4.0 (Ref Range: 3.5-5.0 g/dL) 4.0 (Ref Range: 3.5-5.0 g/dL) 4.2 (Ref Range: 3.5-5.0 g/dL) Alkaline Phosphatase 52 (Ref Range: 39-117 U/L) 50 (Ref Range: 39-117 U/L) 54 (Ref Range: 39-117 U/L) Potassium 3.9 (Ref Range: 3.3-5.1 mmol/L) 3.9 (Ref Range: 3.3-5.1 mmol/L) 3.8 (Ref Range: 3.3-5.1 mmol/L) Chloride 111?H (Ref Range: 96-108 mmol/L) 107 (Ref Range: 96-108 mmol/L) 104 (Ref Range: 96-108 mmol/L) Carbon Dioxide 26 (Ref Range: 22-29 mmol/L) 27 (Ref Range: 22-29 mmol/L) 24 (Ref Range: 22-29 mmol/L) Anion Gap 11?L (Ref Range: 12-20) 11?L (Ref Range: 12-20) 15 (Ref Range: 12-20) Blood Urea Nitrogen 16 (Ref Range: 9-16 mg/dL) 13 (Ref Range: 9-16 mg/dL) 12 (Ref Range: 9-16 mg/dL) Creatinine 1.04 (Ref Range: 0.5-1.4 mg/dL) 0.92 (Ref Range: 0.5-1.4 mg/dL) 0.98 (Ref Range: 0.5-1.4 mg/dL) Estimated Glomerular Filt Rate > 60 > 60 > 60 Glucose Fasting 102?H (Ref Range: 60-99 mg/dL) 91 (Ref Range: 60-99 mg/dL) 99 (Ref Range: 60-99 mg/dL) Calcium 9.2 (Ref Range: 8.4-10.2 mg/dL) 9.1 (Ref Range: 8.4-10.2 mg/dL) 9.1 (Ref Range: 8.4-10.2 mg/dL) * Lab:Complete Blood Count Aut o Diff * Collection Date 03/30/2024 12/02/2022 04/23/2021 Collection Time 08:36 AM 09:24 AM 10:48 AM Order Date 03/30/2024 12/02/2022 04/23/2021 White Blood Count 8.2 (Ref Range: 4.8-10.8 X10*3/uL) 7.4 (Ref Range: 4.8-10.8 X10*3/uL) 8.1 (Ref Range: 4.8-10.8 X10*3/uL) Red Blood Count 4.37?L (Ref Range: 4.60-5.80 X10*6/uL) 4.54?L (Ref Range: 4.60-5.80 X10*6/uL) 4.35?L (Ref Range: 4.60-5.80 X10*6/uL) Hemoglobin 13.9?L (Ref Range: 14.0-18.0 g/dl) 14.0 (Ref Range: 14.0-18.0 g/dl) 13.6?L (Ref Range: 14.0-18.0 g/dl) Hematocrit 39.8?L (Ref Range: 42.0-52.0 %) 40.3?L (Ref Range: 42.0-52.0 %) 39.4?L (Ref Range: 42-52 %) Mean Corpuscular Volume 91.1 (Ref Range: 80.0-98.0 fL) 88.8 (Ref Range: 80.0-98.0 fL) 90.6 (Ref Range: 80-98 fL) Mean Corpuscular Hemoglobin 31.8 (Ref Range: 27.0-33.0 pg) 30.8 (Ref Range: 27.0-33.0 pg) 31.3 (Ref Range: 27.0-33.0 pg) Mean Corpuscular HGB Conc 34.9 (Ref Range: 31.0-36.0 g/dl) 34.7 (Ref Range: 31.0-36.0 g/dl) 34.5 (Ref Range: 31.0-36.0 g/dl) Red Cell Distribution Width 13.2 (Ref Range: 11.0-16.0 %) 13.0 (Ref Range: 11.0-16.0 %) 12.8 (Ref Range: 11.0-16.0 %) Platelet Count 265 (Ref Range: 160-400 X10*3/uL) 268 (Ref Range: 160-400 X10*3/uL) 264 (Ref Range: 160-400 X10*3/uL) Mean Platelet Volume 10.2 (Ref Range: 9.4-12.4 fL) 10.3 (Ref Range: 9.4-12.4 fL) 10.5 (Ref Range: 9.4-12.4 fL) Neutrophils Percent Auto 55.8 (Ref Range: 45-73 %) 54.9 (Ref Range: 45-73 %) 56.5 (Ref Range: 45-73 %) Imm Gran Pct Auto 0.4 (Ref Range: 0.0-0.4 %) 0.1 (Ref Range: 0.0-0.4 %) 0.4 (Ref Range: 0.0-0.4 %) Lymphocytes Percent Auto 31.8 (Ref Range: 20-40 %) 33.1 (Ref Range: 20-40 %) 31.3 (Ref Range: 20-40 %) Monocytes Percent Auto 8.2 (Ref Range: 2-11 %) 8.8 (Ref Range: 2-11 %) 9.3 (Ref Range: 2-11 %) Eosinophils Percent Auto 2.9 (Ref Range: 0-4 %) 2.4 (Ref Range: 0-4 %) 1.6 (Ref Range: 0-4 %) Basophils Percent Auto 0.9 (Ref Range: 0-2 %) 0.7 (Ref Range: 0-2 %) 0.9 (Ref Range: 0-2 %) NRBC Pct Auto 0.0 (Ref Range: 0.0-0.2 /100WBC) 0.0 (Ref Range: 0.0-0.2 /100WBC) 0.0 (Ref Range: 0.0-0.2 /100WBC) Neutrophils Absolute Auto 4.6 (Ref Range: 2.0-8.3 x10*3/uL) 4.1 (Ref Range: 2.0-8.3 x10*3/uL) 4.6 (Ref Range: 2.0-8.3 X10*3/uL) Imm Gran Abs Auto 0.03 (Ref Range: 0.00-0.03 X10*3/uL) 0.01 (Ref Range: 0.00-0.03 X10*3/uL) 0.03 (Ref Range: 0.00-0.03 X10*3/uL) Lymphocytes Absolute Auto 2.6 (Ref Range: 1.2-4.9 X10*3/uL) 2.4 (Ref Range: 1.2-4.9 X10*3/uL) 2.5 (Ref Range: 1.2-4.9 X10*3/uL) Monocytes Absolute Auto 0.7 (Ref Range: 0.1-1.2 X10*3/uL) 0.7 (Ref Range: 0.1-1.2 X10*3/uL) 0.8 (Ref Range: 0.1-1.2 X10*3/uL) Eosinophils Absolute Auto 0.2 (Ref Range: 0.0-0.4 X10*3/uL) 0.2 (Ref Range: 0.0-0.4 X10*3/uL) 0.1 (Ref Range: 0.0-0.4 X10*3/uL) Basophils Absolute Auto 0.1 (Ref Range: 0.0-0.2 X10*3/uL) 0.1 (Ref Range: 0.0-0.2 X10*3/uL) 0.1 (Ref Range: 0.0-0.2 X10*3/uL) NRBC Abs Auto 0.000 (Ref Range: 0.0-0.012 X10*3/uL) 0.000 (Ref Range: 0.0-0.012 X10*3/uL) 0.000 (Ref Range: 0.0-0.012 X10*3/uL) * Lab:URINE DIP STICK * Collection Date 04/05/2024 12/16/2022 Order Date 04/05/2024 12/16/2022 SG 1.020 (Ref Range: 1.005 - 1.025) 1.015 (Ref Range: 1.005 - 1.025) pH 5.0 (Ref Range: 5.0 - 9.0) 6.0 (Ref Range: 5.0 - 9.0) KSENIA Negative (Ref Range: Negative -) Negative (Ref Range: Negative -) NIT Negative (Ref Range: Negative -) Negative (Ref Range: Negative -) PRO 100 (Ref Range: Negative - Trace) 15 (Ref Range: Negative - Trace) GLU Negative (Ref Range: Negative -) Negative (Ref Range: Negative -) KET 5 (Ref Range: Negative -) Negative (Ref Range: Negative -) UBG 0.2 (Ref Range: 0.1 - 1.8) 0.2 (Ref Range: 0.1 - 1.8) LILIYA Negative (Ref Range: 0.2 - 1.3) Negative (Ref Range: 0.2 - 1.3) BLD Negative (Ref Range: Negative -) Negative (Ref Range: Negative -) Menstrating NR N/A * Examination: ???General Examination: ?GENERAL APPEARANCE:?pleasant, well nourished, well developed, in no acute distress, calm and relaxed, overweight, man.?HEAD:?atraumatic, normocephalic.?EYES:?eomi, perrla, anicteric, conjugate.?EARS:?normal.?NOSE:?septum intact.?ORAL CAVITY:?normal, unremarkable.?NECK/THYROID:?no jugular venous distention, no carotid bruit, thyroid normal.?LYMPH NODES:?no enlarged lymph nodes,spleen normal.?SKIN:?no suspicious lesions, anicteric.?HEART:?no clicks, gallops, murmurs, or rubs, regular rhythm, S1, S2 normal, no s3, or vascular bruits.?LUNGS:?clear to auscultation .?BREASTS:??no masses palpable bilaterally.?ABDOMEN:?bowel sounds normal, no ascites, no organomegaly, no mass, overweight.?RECTAL EXAM:?not examined.?MUSCULOSKELETAL:?extremities unremarkable, no clubbing, cyanosis or edema.?PERIPHERAL PULSES:?normal.?NEUROLOGIC:?alert and oriented, cranial nerves 2-12 grossly intact, deep tendon reflexes 2+ symmetrical, motor strength normal upper and lower extremities, sensory exam intact.?PSYCH:?alert, oriented.? Assessment: * Assessment: 1.?Hypertension - I10 (Prima ry)???Notes :His blood pressure is stable at 134/80 and he has been compliant with his medications. He will return in the near future to recheck the blood pressure. Treatment will be implemented if it remains at this level.???2.?Overweight - E66.3???Notes :He has lost 2 pounds now weighing 178 pounds.? His body mass index is 29.6.? We reviewed the elements of a weight loss diet.? I recommended weight loss at a rate of one half of a pound per week.???3.?Right inguinal hernia - K40.90???Notes :The hernia has been repaired. He will call me if anythingThe chest infection or bleeding occurs.???4.?History of skin cancer - Z85.828???Notes :No new lesions were noted today.??? Plan: * Treatment: 2.?Overweight?LAB: PROFILE, FASTING (COMPREHENSIVE METABOLIC) ?LAB: CBC WITH AUTO DIFF ?LAB: Lipid Panel 3.?Others? Continue Norvasc Tablet, 10 MG, 1 tablet, Orally, Once a day.?? * Procedure Codes:? * Preventive Medicine:? ??Counseling:?Care goal follow-up plan:?Counseling for abnormal BMI given?Yes ?Above Normal BMI Follow-up?Dietary management education, guidance, and counseling, Dietary needs education * Follow Up:?4 Months (Reason: OV) * Images: * Sign off status: Completed true * Provider:?Zacarias Zurita MD Date:?11/2023 Generated for Jonai ng/Nya/eTransmitting on:?10/25/2024 08:52 AM EDT History and Physical Notes * HPI (History of Present Illness) Category Sub-Category Detail Notes COVID-19 Screening Questions Have you had any new onset fever, chills, cough, congestion, sore throat, shortness of breath, muscle aches?: No Have you been exposed to the virus withi n the last 10 days?: No Have you travelled internationally in e last 10 days?: No Have you been exposed to COVID-19 in the past?: No Examination Category Sub-Category Detail Notes General Examination GENERAL APPEARANCE: pleasant , well nourished, well developed, in no acute distress, calm and relaxed, overweight, man HEAD: atraumatic, normocep halic EYES: eomi, perrla, anicte eric, conjugate EARS: normal NOSE: septum intact NECK/THYROID: no jugular venous di stention, no carotid bruit, thyroid normal HEART: no clicks, gallops, murmurs, or rubs, regular rhythm, S1, S2 normal, no s3, or vascular bruits LUNGS: clear to auscultatio n ABDOMEN: bowel sounds normal, no ascites, no organomegaly, no mass, overweight NEUROLOGIC: alert and oriented, cranial nerves 2-12 grossly intact, deep tendon reflexes 2+ symmetrical, motor strength normal upper and lower extremities, sensory exam intact SKIN: no suspicious lesion s, anicteric PERIPHERAL PULSES: normal BREASTS: no masses palpable b ilaterally MUSCULOSKELETAL: extremities unremark able, no clubbing, cyanosis or edema LYMPH NODES: no enlarged lymph no roberto,spleen normal RECTAL EXAM: not examined PSYCH: alert, oriented ORAL CAVITY: normal, unremarkable
--- OUTSIDE RECORDS SUMMARY | 2024-10-25 08:53 | XMS_ITS ---
Author Organization Zacarias Zurita III, MD Address [address] [place] [address] Care Team Providers Care Special Education Professional Name Role Phone Zacarias Zurita Primary Care Provider REASON FOR VISIT Delayed ! Eye Doctor Social History Sex Assigned At : Social History Observation Description Sex Assigned At Male Encounters Encounter Location Date Provider Diagnosis Zacarias Zurita III, MD [address] [place] [address] [place] [address] 06/28/2024 Zacarias Zurita Plan Of Treatment Next Appt Details Provider Name:Zacarias Zurita, 11/01/2024 09:00:00 AM, [address] [place] [address] [address], [place], [address], Provider Name:Zacarias Zurita, 04/09/2025 09:30:00 AM, [address] [place] [address] [place], [address], Progress Notes * Jarett MAYNARDDOB: (78 yo M)Acc No.[id number]:06/28/2024 Patient:?Jarett MAYNARD :1945???Age:78 Y???Sex:Male Address:[address] [place], [address] * true * Date:? Generated for Printi ng/Faxing/eTransmitting on:?10/25/2024 08:52 AM EDT
--- OUTSIDE RECORDS SUMMARY | 2024-10-25 08:53 | XMS_ITS | Patient Health Record ---
Author Organization [facility] Address [address] [place] [address] Care Team Providers Care Rigger Apprentice Name Role Phone Zacarias Zurita MD Primary Care Provider Emigdio Jansen Jr Young Unavailable [phone] Allergies No Known Allergies Reason For Referral No Information Medications Medication SIG (Take, Route, Frequency, Duration) Notes Start Date End Date Status amLODIPine Besylate 10 MG Oral for 90 Active hydroCHLOROthiazide 12.5 MG TAKE ONE TAB LET BY MOUTH EVERY DAY Oral for 90 Active MiraLax (colon prep) 17 GM/SCOOP mixed with Gatorade or Crystal Light Orally begin at 5:00 p.m. the day before the procedure for 1 day 07/30/2021 Active Immunizations Vaccine Route Administration Date Status Comme nts Influenza Unknown 07/30/2021 Refused Social History Tobacco Use: Social History Observation Description Date Details (start date - stop date) Never Smoker NA - NA Tobacco Use/Smoking Question Answer Notes Patient is a nonsmoker Alcohol Screen Question Answer Notes Did you have a drink containing alcohol in the p ast year? No Points 0 Interpretation Negative Section Notes: no etoh over a year Problems Problem Type SNOMED Code ICD Code Onset Dates Problem Status W/U Status Risk Notes Problem 388796371 Colon cancer screening (Z12.11) Active confirmed Problem 598398936 Encounter for other preprocedural examination (Z01.818) Active confirmed Problem [id number] skilled nursing current use of diuretic (Z79.899) Active confirmed Plan Of Treatment Future Test Test Name Order Date COLONOSCOPY 07/30/2021 Insurance Providers Payer Name Payer Address Payer Phone Subscriber Number Group Number Insured Name Patient Relationship to Insured Coverage Start Date Coverage End Date [facility] [address] [facility] [place] [phone] [id number] JANIS LEROY Self - patient is the insured Medical (General) History Medical History History ICD Code hypertension Skin cancer/lesions right inguinal hernia Surgical History Surgery Date(Month/Year) excision of skin cancer from [facility] 2017
--- OUTSIDE RECORDS SUMMARY | 2024-10-25 08:53 | XMS_ITS ---
Author Organization Zacarias Zurita III, MD Address [address] [place] [address] Care Team Providers Care Golf [employer] Manager Name Role Phone Zacarias Zurita [facility] [...] 0.2 - 1.3 BLD Negative Negative - REASON FOR VISIT Annual Exam, Right upper arm pain x 6 months, Right hand weakness x 6 months Medications Medication SIG (Take, Route, Frequency, Duration) Notes Start Date End Date Status Norvasc 10 MG 1 tablet Orally Once a day Active hydroCHLOROthiazide 12.5 MG TAKE ONE CAP LYNDON BY MOUTH EVERY MORNING Active Social History Tobacco Use: Social History [...] Problem Status W/U Status Risk Notes Problem [id number] Overweight (E66.3) Active confirmed He has lost 2 pounds now weighing 178 pounds. His body mass index is 29.6. We reviewed the elements of a weight loss diet. I recommended weight loss at a rate of one half of a pound per week. Vital Signs Temperature 98.0 degrees Fahrenheit 04/05/20 24 Blood pressure systolic 137 mm Hg 04/05/20 24 Blood pressure diastolic 71 mm Hg 024 Heart Rate 46 /min 04/05/2024 Height 65 in 04/05/2024 Weight 180 lbs 04/05/2024 BMI 29.95 kg/m2 04/05/2024 Encounters Encounter Location Date Provider Diagnosis Zacarias Zurita III, MD [address] [place] [address] [place] [address] 04/05/2024 Zacarias Zurita Hypertension I10 ; Right inguinal hernia K40.90 ; Basal cell carcinoma (BCC), unspecified site C44.91 ; BPH (benign prostatic hyperplasia) N40.0 and Overweight E66.3 Assessments Encounter Date Diagnosis (ICD Code) Assessment Notes Treatment Notes Treatment Clinical Notes 04/05/2024 Hypertension (ICD-10 - I10) His blood [...] anythingThe chest infection or bleeding occurs. 04/05/2024 Basal cell carcinoma (BCC), unspecified site (ICD-10 - C44.91) No new skin cancers were noticed today. 04/05/2024 BPH (benign prostatic hyperplasia) (ICD-10 - N40.0) He has been rising from sleep once or twice a night to urinate. We have discussed lifestyle modification as a way to reduce nocturia. He was encouraged to resume the hydrochlorothiazide . 04/05/2024 Overweight (ICD-10 - E66.3) He has lost several pounds in his body mass index is now 29. We reviewed his weight loss strategy diet and nutrition. He will continue to lose weight at a rate of one half of a pound per week. Plan Of Treatment Medication Medication Name Sig Start Date Stop Date Notes Norvasc 10 MG 1 tablet Orally Once a day hydroCHLOROthiazide 12.5 MG TAKE ONE CAP LYNDON BY MOUTH EVERY MORNING Next Appt Details Follow Up: 3 Months, Reason: ov no tests Provider Name:Zacarias Zurita, 11/01/2024 09:00:00 AM, [address] [place] [address] [address], [place], [id number], Provider Name:Zacarias Zurita, 04/09/2025 09:30:00 AM, [address] [place] [address] [address], [place], [id number], Progress Notes * Jarett MAYNARDDOB: [birth year] (78 yo M)Acc No.[id number]:04/05/2024 Progress Notes Patient:? Jarett Cook Provider:?Zacarias Zurita MD :1945???Age:78 Y???Sex:Male Abiodun e:04/05/2024 [facility] Subjective: * Chief Complaints: * ???Annual ExamRight upper ar m pain x 6 monthsRight hand weakness x 6 months * HPI: ???Depression Screening:? He returns to the office at the age of 78 for his annual physical examination. He underwent a right inguinal herniorrhaphy in July 2023 and has no further pain. He has stopped his hydrochlorothiazide because he felt he was urinating too frequently. A new complaint is pain in his right biceps muscle and shoulder with you. Range of motion and elevation were normal today. He is rising from sleep twice a night to urinate. 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 ?PHQ-9?Little interest or pleasure in doing things?Not at all ?Feeling down, depressed, or hopeless?Not at all ?Trouble falling or staying asleep, or sleeping too much?Not at all ?Feeling tired or having little energy?Not at all ?Poor appetite or overeating?Not at all ?Feeling bad about yourself or that you are a failure, or have let yourself or your family down?Not at all ?Trouble concentrating on things, such as reading the newspaper or watching television?Not at all ?Moving or speaking so slowly that other people could have noticed; or the opposite, being so fidgety or restless that you have been moving around a lot more than usual?Not at all ?Thoughts that you would be better off or of hurting yourself in some way?Not at all ?Total Score?0 ???COVID-19 Screening:?Questions?Have you experienced fever, chills, cough, sore throat, shortness of breath, difficulty breathing, muscle aches, loss of taste or smell??No ?Have you been exposed to the virus within the last 10 days??No ?Have you travelled internationally in the last 10 days??No ?Have you been exposed to COVID-19 in the past??No ???SDOH Questions:?SDOH Questions?In the past year have you been worried about losing your housing??No ?In the past year have you or any family members you live with been unable to get any of the following when it was really needed? Check all that apply:?None ???Fall Risk Screening:?Fall History?Have you had any falls with injury in the past year??No ?Have you had two or more falls in the past year??No ?Fall Risk Assessment:?No falls in the past year * ROS:?General/Constitutional:?pain?Right shoulder and right biceps muscle.?Chills?denies.?Fatigue?admits.?Fever?denies.?ENT:?Decreased hearing?mild.?Respiratory:?Cough?denies.?Cardiovascular:?Chest pain with exertion?denies.?Dyspnea on exertion?denies.?Shortness of breath?denies.?Gastrointestinal:?Constipation?occasional.?Decreased appetite?denies.?Diarrhea?denies.?Heartburn?denies.?Nausea?denies.?Rectal bleeding?denies.?Vomiting?denies.?Hematology:?bruising?denies.?petechiae?denies.?Swollen glands?none have been noted.?Genitourinary:?Frequent urination?twice a night.?Musculoskeletal:?Muscle aches?denies.?Painful joints?Right shoulder.?Sciatica?denies.?Weakness?denies.?Skin:?Itching?denies.?Rash?denies.?Skin lesion(s)?denies.?Neurologic:?Difficulty speaking?denies.?Dizziness?denies.?Headache?denies.?Low back pain?denies.?Psychiatric:?Depressed mood?denies.? * Medical History:? * Surgical History:?Excision o f skin cancer from scalp 2017Back lesion 2019arm and nose basal cell removal 12/2021Hernia removed 07/27/23 * Hospitalization/Major Diagno stic Procedure:?Denies Past Hospitalization * Family History:?Father: dece ased 69 yrs.?Mother: 56 yrs, diagnosed with HTN.?Spouse: alive.?1 brother(s) . .? He is not aware of any inherited cancer family syndrome. * Social History:?Tobacco Use:?Tobacco Use/Smoking?Patient is a?nonsmoker ?Additional Findings: Tobacco Non-User?Aggressive non-smoker ???Drugs/Alcohol:?Drugs?Have you used drugs other than those for medical reasons in the past 12 months??No ?Alcohol Screen?Did you have a drink containing alcohol in the past year??Yes ?How often did you have a drink containing alcohol in the past year??Monthly or less (1 point) ?How many drinks did you have on a typical day when you were drinking in the past year??1 or 2 drinks (0 point) ?How often did you have 6 or more drinks on one occasion in the past year??Never (0 point) ?Points?1 ?Interpretation?Negative ???He was born in [place]. He has been to [facility] for 6 years. He is a tractor trailer truck driver and works three days a week. He has no children. * Medications:?TakingNorvasc 1 0 MG Tablet 1 tablet Orally Once a dayTaking Norvasc 10 MG Tablet 1 tablet Orally Once a dayNot-Taking/PRNhydroCHLOROthiazide 12.5 MG Capsule TAKE ONE CAPSULE BY MOUTH EVERY MORNING Medication List reviewed and reconciled with the patientNot-Taking/PRN hydroCHLOROthiazide 12.5 MG Capsule TAKE ONE CAPSULE BY MOUTH EVERY MORNING Medication List reviewed and reconciled with the patient * Allergies:?No Known Drug All ergyno[Allergies Verified] Objective: * Vitals:?Ht: 65, Wt:180, BMI: 29.95, BP:137/71, HR:46, Temp:98.0, Wt-k.65. * ???Past Orders: Lab:URINE DIP STICK * Order Date 04/05/2024 12/16/2022 SG 1.020 (Ref [...] Range: Negative -) Menstrating NR N/A * Lab:Prostate Specific Antige n * Order Date 03/30/2024 12/02/2022 04/23/2021 Prostate Specific Antigen 3.68 (Ref Range: <0.05-4.0 ng/mL) 2.93 (Ref Range: <0.05-4.0 ng/mL) 2.47 (Ref Range: <0.05-4.0 ng/mL) * Lab:Complete Blood Count Aut o Diff * Order Date 03/30/2024 12/02/2022 04/23/2021 White Blood [...] X10*3/uL) 0.000 (Ref Range: 0.0-0.012 X10*3/uL) * Lab:[facility]. Jessica l Fast * Order Date 03/30/2024 12/02/2022 04/23/2021 Sodium 144 [...] mg/dL) 9.1 (Ref Range: 8.4-10.2 mg/dL) * Lab:Lipid Panel * Order Date 03/30/2024 12/02/202204/23/2021 Triglycerides 73 (Ref Range: <150 mg/dL) 114 (Ref Range: mg/dL) 113 (Ref Range: mg/dL) Cholesterol 198 (Ref Range: <200 mg/dL) 207 (Ref Range: mg/dL) 197 (Ref Range: mg/dL) LDL Cholesterol Calculated 137?H (Ref Range: <100 mg/dL) 145 (Ref Range: mg/dl) 132 (Ref Range: mg/dl) HDL Cholesterol 47 (Ref Range: >40 mg/dL) 40 (Ref Range: mg/dL) 43 (Ref Range: mg/dL) * Examination: ???General Examination: ?GENERAL APPEARANCE:?pleasant, well nourished, well developed, in no acute distress, calm and relaxed , overweight , elderly man.?HEAD:?atraumatic, normocephalic.?EYES:?eomi, perrla, anicteric, conjugate.?EARS:?normal.?NOSE:?septum intact.?ORAL CAVITY:?normal, unremarkable.?NECK/THYROID:?no jugular venous distention, no carotid bruit, thyroid normal.?LYMPH NODES:?no enlarged lymph nodes,spleen normal.?SKIN:?no suspicious lesions, anicteric.?HEART:?no clicks, gallops, murmurs, or rubs, regular rhythm, S1, S2 normal, no s3, or vascular bruits.?LUNGS:?clear to auscultation .?BREASTS:??no masses palpable bilaterally.?ABDOMEN:?bowel sounds normal, no ascites, no organomegaly, no mass , overweight, Right inguinal hernia scar.?RECTAL EXAM:??normal tone , no external hemorrhoids , no masses palpable , no melena , no red blood , prostate Slightly enlarged, median furrow preserved, no nodules.?MUSCULOSKELETAL:?extremities unremarkable, no clubbing, cyanosis or edema.?PERIPHERAL PULSES:?normal.?NEUROLOGIC:?alert and oriented, cranial nerves 2-12 grossly intact, deep tendon reflexes 2+ symmetrical, motor strength normal upper and lower extremities, sensory exam intact.?PSYCH:?alert, oriented , cognitive function intact , cooperative with exam , good eye contact , speech clear , thought process logical, goal directed.? Assessment: * Assessment: 1.?Hypertension - I10 (Prima ry), His blood pressure is stable at 137/71 and he has been compliant with his medications. He will return in the near future to recheck the blood pressure. Treatment will be implemented if it remains at this level.?2.?Right inguinal hernia - K40.90, The hernia has been repaired. He will call me if anythingThe chest infection or bleeding occurs.?3. Basal cell carcinoma (BCC), unspecified site - C44.91, No new skin cancers were noticed today.?4.?BPH (benign prostatic hyperplasia) - N40.0, He has been rising from sleep once or twice a night to urinate. We have discussed lifestyle modification as a way to reduce nocturia. He was encouraged to resume the hydrochlorothiazide.?5.?Overweight - E66.3, He has lost several pounds in his body mass index is now 29. We reviewed his weight loss strategy diet and nutrition. He will continue to lose weight at a rate of one half of a pound per week.? Plan: * Treatment: 2.?Others? Continue Norvasc Tablet, 10 MG, 1 tablet, Orally, Once a day.?? * Labs:? * ?Lab: URINE DIP STICK ? Value Reference Range ?SG 1.020 1.005 - 1.025 * ?pH 5.0 5.0 - 9.0 * ?KSENIA Negative Negative - * ?NIT Negative Negative - * ?PRO 100 Negative - Trac e * ?GLU Negative Negative - * ?KET 5 Negative - * ?UBG 0.2 0.1 - 1.8 * ?LILIYA Negative 0.2 - 1.3 * ?BLD Negative Negative - * Procedure Codes:?94823 URINE -NO [id number] TEST FOR BLOOD, FECES * Preventive Medicine:? ??Counseling:?Care goal follow-up plan:?Counseling for abnormal BMI given?Yes ?Above Normal BMI Follow-up?Dietary management education, guidance, and counseling, Dietary needs education * Follow Up:?3 Months (Reason: ov no tests ) * Images: * Sign off status: Completed true * Provider:?Zacarias Zurita MD Date:?03/25 Generated for Reilly dumas/Nya/Ottonielransmitting on:?10/25/2024 08:52 AM EDT History and Physical Notes * HPI (History of Present Illness) Category Sub-Category Detail Notes Depression Screening PHQ-9 Little inte rest or pleasure in doing things: Not at all Feeling down, depressed, or hopeless: No t at all Trouble falling or staying asleep, or sl eeping too much: Not at all Feeling tired or having little energy: N ot at all Poor appetite or overeating: Not at all Feeling bad about yourself o r that you are a failure, or have let yourself or your family down: Not at all Trouble concentrating on thi ngs, such as reading the newspaper or watching television: Not at all Moving or speaking so slowly that other people could have noticed; or the opposite, being so fidgety or restless that you have been moving around a lot more than usual: Not at all Thoughts that you would be b grabiel off or of hurting yourself in some way: Not at all Total Score: 0 Fall Risk Screening Fall History Have you had any falls with injury in the past year?: No Have you had two or more falls in the year?: No Fall Risk Assessment:: No falls in the year COVID-19 Screening Questions Have you had any new onset fever, chills, cough, congestion, sore throat, shortness of breath, muscle aches?: No Have you been exposed to the virus withi n the last 10 days?: No Have you travelled internationally in e last 10 days?: No Have you been exposed to COVID-19 in the past?: No SDOH Questions SDOH Questions In the past year have you been worried about losing your housing?: No In the past year have you or any family members you live with been unable to get any of the following when it was really needed? Check all that apply:: None Examination Category Sub-Category Detail Notes General Examination GENERAL APPEARANCE: pleasant , well nourished, well developed, in no acute distress, calm and relaxed , overweight , elderly man HEAD: atraumatic, normocep halic EYES: eomi, perrla, anicte eric, conjugate EARS: normal NOSE: septum intact NECK/THYROID: no jugular venous di stention, no carotid bruit, thyroid normal HEART: no clicks, gallops, murmurs, or rubs, regular rhythm, S1, S2 normal, no s3, or vascular bruits LUNGS: clear to auscultatio n ABDOMEN: bowel sounds normal, no ascites, no organomegaly, no mass , overweight, Right inguinal hernia scar NEUROLOGIC: alert and oriented, cranial nerves 2-12 grossly intact, deep tendon reflexes 2+ symmetrical, motor strength normal upper and lower extremities, sensory exam intact SKIN: no suspicious lesion s, anicteric PERIPHERAL PULSES: normal BREASTS: no masses palpable b ilaterally MUSCULOSKELETAL: extremities unremark able, no clubbing, cyanosis or edema LYMPH NODES: no enlarged lymph no roberto,spleen normal RECTAL EXAM: normal tone , no ext ernal hemorrhoids , no masses palpable , no melena , no red blood , prostate Slightly enlarged, median furrow preserved, no nodules PSYCH: alert, oriented , co gnitive function intact , cooperative with exam , good eye contact , speech clear , thought process logical, goal directed ORAL CAVITY: normal, unremarkable
[2024-10-25 09:06] LABS: MANUAL DIFF FLAG NO
[2024-10-25 09:30] LABS: Basophils Absolute Auto 0.1 X10*3/uL (0.0-0.2); Basophils Percent Auto 0.8 % (0-2); Eosinophils Absolute Auto 0.2 X10*3/uL (0.0-0.4); Eosinophils Percent Auto 2.2 % (0-4); Hematocrit 39.6 % (42.0-52.0); Hemoglobin 13.7 g/dl (14.0-18.0); Imm Gran Abs Auto 0.02 X10*3/uL (0.00-0.03); Imm Gran Pct Auto 0.3 % (0.0-0.4); Lymphocytes Absolute Auto 2.6 X10*3/uL (1.2-4.9); Mean Corpuscular HGB Conc 34.6 g/dl (31.0-36.0); Mean Corpuscular Hemoglobin 31.1 pg (27.0-33.0); Mean Platelet Volume 10.4 fL (9.4-12.4); Monocytes Absolute Auto 0.6 X10*3/uL (0.1-1.2); Monocytes Percent Auto 8.3 % (2-11); Neutrophils Absolute Auto 3.9 x10*3/uL (2.0-8.3); Neutrophils Percent Auto 53.4 % (45-73); Platelet Count 244 X10*3/uL (160-400); Red Cell Distribution Width 13.1 % (11.0-16.0); White Blood Count 7.3 X10*3/uL (4.8-10.8)
[2024-10-25 14:13] LABS: Alanine Aminotransferase 20 U/L (0-40); Albumin Level 4.1 g/dL (3.5-5.0); Alkaline Phosphatase 51 U/L (39-117); Anion Gap 11 (12-20); Aspartate Amino Transferase 22 U/L (5-37); Bilirubin Total 0.8 mg/dL (0.0-1.0); Blood Urea Nitrogen 24 mg/dL (9-16); Calcium 9.4 mg/dL (8.4-10.2); Carbon Dioxide 27 mmol/L (22-29); Chloride 109 mmol/L (96-108); Cholesterol 205 mg/dL (<200); Estimated Glomerular Filt Rate > 60; Glucose Fasting 97 mg/dL (60-99); HDL Cholesterol 47 mg/dL (>40); LDL Cholesterol Calculated 141 mg/dL (<100); Potassium 3.7 mmol/L (3.3-5.1); Sodium 143 mmol/L (135-145); Total Protein 7.1 g/dL (6.5-8.0); Triglycerides 87 mg/dL (<150)
== END 2024-10-25 08:44 | disposition home or self-care (01) ==
LOC: HO.LAB 08:43
PROVIDERS: PCP Internal Medicine Medical Oncology; Visit Provider Internal Medicine Medical Oncology
DX: I10 Essential (primary) hypertension (principal); E66.3 Overweight
CPT/HCPCS: 36415; 80053; 80061; 85025

== ENCOUNTER 2024-11-16 15:35 | Outpatient (REF) | payer MEDICARE, SELFPAY | END 2024-11-16 15:36 | disposition home or self-care (01) | LOC: HO.XRAY 15:35 | PROVIDERS: PCP Internal Medicine Medical Oncology; Visit Provider Internal Medicine Medical Oncology | DX: M25.561 Pain in right knee (principal); M25.562 Pain in left knee; M54.50 Low back pain, unspecified | CPT/HCPCS: 72100; 72220; 73564 ==

== ENCOUNTER → 2024-11-16 15:50 | Outpatient (BNV) | payer MEDICARE, SELFPAY | PROVIDERS: PCP Internal Medicine Medical Oncology; Visit Provider Radiology Diagnostic Radiology | DX: M17.11 Unilateral primary osteoarthritis, right knee (principal); I70.201 Unspecified atherosclerosis of native arteries of extremities, right leg; M47.815 Spondylosis without myelopathy or radiculopathy, thoracolumbar region; M41.86 Other forms of scoliosis, lumbar region; M53.3 Sacrococcygeal disorders, not elsewhere classified | CPT/HCPCS: 72100; 72220; 73564 ==

== ENCOUNTER 2025-03-07 10:52 | Outpatient (AMB) | payer MEDICARE, SELFPAY ==
--- NOTE | 2025-03-07 11:01 | MHC.OFFVIS ---
Intake Visit Reasons: Rule Out ALZ Allergies No Known Allergies Allergy (Verified 10/07/23 09:05) HPI Comments Details: The patient is a 79-year-old male presenting with a tremor in his right hand and gradually increasing motor slowness. The symptoms commenced around September 2022, with noticeable progression throughout the spring when his handwriting started deteriorating, particularly affecting his signature due to his dominant right hand. 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 He also reported increased difficulty with mobility; since October 2022, he has experienced knee pain, resolved via injection but continues to have difficulty rising from low chairs, resulting in a reliance on his arms for assistance. The patient takes medication for hypertension, which contributes to frequent urination, but he denies experiencing falls or using pain medication. [facility] Medical History Right inguinal hernia COVID-19 vaccine series completed Arthritis Skin cancer HTN (hypertension) Surgical History History of right inguinal hernia repair (07/27/23) Hx of cataract extraction Social History Are you a primary ambulatory care to a significant other at home: No Do you presently have visiting nurse or other home services: No Patient Tobacco Use Status: Never used Tobacco Review of Systems Const Details: - Neurological: Reports tremor in the right hand, slowness in walking. Denies falls. - Musculoskeletal: Reports knee pain in October 2022, improved with injection. Reports difficulty rising from chairs. - Genitourinary: Reports frequent urination linked to hypertension medication. - Sleep: Denies difficulty sleeping, reports occasional nightmares. - Psychological: Denies difficulty sleeping or significant memory issues. Physical Exam Neuro Other: Mental Status: Alert and oriented to person, place, and time. Normal attention. Normal spontaneous speech, fluency, and comprehension. No obvious issues with mood and memory. Affect is appropriate. Cranial Nerves: CN II: Visual austin full to confrontation, visual acuity intact. CN III, IV, : Pupils equal, round, reactive to light and accommodation. Extraocular movements are normal. CN V: Facial sensation is normal. CN VII: Facial movements symmetrical. CN VIII: Hearing intact to bedside conversation is normal. CN IX, X: Palate elevates symmetrically. CN XI: Shoulder shrug and head turn symmetrical. CN XII: Tongue midline without atrophy or fasciculations. Motor: Bulk and tone normal in all extremities. No significant muscle weakness in arms and legs. No drift. Reflexes: Deep tendon reflexes 2+ and symmetric. Plantar response down-going bilaterally. Coordination: Jfqotw-ld-sqdd and upbh-vx-qmnt testing normal. No dysmetria. Gait and Station: Slow with slightly stooped posture Extrapyramidal: Decreased facial expression blinking. Mild right hand resting tremor. Mild bilateral hand rigidity. Speech: Normal; no dysarthria or tremor. Assessment & Plan Assessment & Plan (1) Parkinson disease: Code(s): G20.A1 - Parkinson's disease without dyskinesia, without mention of fluctuations Category: Medical Qualifiers: Dyskinesia presence: without dyskinesia Fluctuating manifestations: without fluctuating manifestations Qualified Code(s): G20.A1 - Parkinson's disease without dyskinesia, without mention of fluctuations Plan Impression: Moderate Parkinson disease symptoms Rec: a: MRI brain WO cont b: Carbidopa/levodopa 25/100 one at 7am, 11am, and 3pm c: Stay phsically active Orders: Orders MR head/brain wo con Today G20.A1 - Parkinson's disease without dyskinesia, without mention of fluctuations Medications: New carbidopa-levodopa 25-100 mg (Sinemet) 1 tab PO TID 270 tabs 1RF Coding Level of Care Code Tele New Pt Level 4 (13511) Diagnoses Parkinson's disease without dyskinesia or fluctuating manifestations G20.A1 Dyskinesia presence: without dyskinesia Fluctuating manifestations: without fluctuating manifestations
--- OUTSIDE RECORDS SUMMARY | 2025-03-07 12:03 | XMS_ITS | Patient Health Record ---
Author Organization [facility] Address [address] [place] [address] Care Team Providers Care Scissors Sharpener Name Role Phone Zacarias Zurita MD Primary Care Provider Emigdio Jansen Jr Young Unavailable [phone] Allergies No Known Allergies Reason For Referral [...] Problem Status W/U Status Risk Notes Problem [id number] Colon cancer screening (Z12.11) Active confirmed Problem [id number] Encounter for other preprocedural examination (Z01.818) Active confirmed Problem [id number] custodial current use of diuretic (Z79.899) Active confirmed Plan Of Treatment Future Test Test Name Order Date COLONOSCOPY 07/30/2021 Insurance Providers Payer Name Payer Address Payer Phone Subscriber Number Group Number Insured Name Patient Relationship to Insured Coverage Start Date Coverage End Date [facility] [address] [facility] [place] [phone] [id number] JANIS LEROY Self - patient is the insured Medical (General) History Medical History History ICD Code hypertension Skin cancer/lesions right inguinal hernia Surgical History Surgery Date(Month/Year) excision of skin cancer from [facility] 2017
--- OUTSIDE RECORDS SUMMARY | 2025-03-07 12:03 | XMS_ITS | Clinical Summary ---
Author Organization [facility] Address [address] [address] Phone Care Team Providers Care Photogrammetric Tech Name Role Phone Bijan Holland MD Primary Care Provider [phone] Medications triamcinolone acetonide 0.025 % cream 1 application to affected area Externally Twice a day Active amLODIPine (NORVASC) 10 MG tablet Take 1 tablet by mouth daily. Active Family History Medical History Relation Comments Stroke Father 2 Hypertension Mother 2 Stroke Mother 2 Relation Status Comments Father 1 Father 2 Mother 1 Mother 2 Social History Tobacco Use Types Packs/Day Years Used Date Smoking Tobacco: Never Assessed Education Answer Date Recorded Are you interested in more education? Not on carli e 11/19/2022 Are you concerned about learning? Not on file 11/19/2022 No 11/19/2022 No 11/19/2022 Digital Access Answer Date Recorded No 12/20/2022 No 12/20/2022 No 12/20/2022 Reliable internet access at home? Not on file 12/20/2022 Device with a working camera? Not on file Sex and Gender Information Value Date Recorded Sex Assigned at Not on file Legal Sex Male 10:08 PM EDT Gender Identity Not on file Sexual Orientation Not on file Last Filed Vital Signs Vital Sign Reading Time Taken Comments Blood Pressure 110/66 04/15/2017 8:21 AM EDT Pulse 58 04/15/2017 8:21 AM EDT Temperature 36.4 C (97.6 F) 04/15/2017 8:21 AM EDT Respiratory Rate - - Oxygen Saturation - - Inhaled Oxygen Concentration - - Weight 82.1 kg (181 lb) 04/15/2017 8:21 AM EDT Height 165.1 cm (5' 5 ) 04/15/2017 8:21 AM EDT Body Mass Index 30.12 04/15/2017 8:21 AM EDT Plan of Treatment Not on file Medical Devices Not on file Insurance [address] [place], [place] [address] [place], [place] [address] [place], [place] [address]O O O Care Teams Photogrammetric Tech Relationship Specialty Start Date End Date Bijan Holland MD PCP - General 07/28/17 Additional Source Comments The information contained in this document represents components of the legal health record. It is not the complete legal health record.[facility]
== END 2025-03-07 11:12 | disposition home or self-care (01) ==
PROVIDERS: PCP Internal Medicine Medical Oncology; Referring Provider Internal Medicine Medical Oncology; Visit Provider Psychiatry & Neurology Neurology
DX: G20.A1 Parkinson's disease without dyskinesia, without mention of fluctuations (principal)
CPT/HCPCS: 99204

== ENCOUNTER → 2025-03-23 10:14 | Outpatient (BNV) | payer MEDICARE, SELFPAY | PROVIDERS: PCP Internal Medicine Medical Oncology; Visit Provider Radiology Diagnostic Radiology | DX: I67.82 Cerebral ischemia (principal) | CPT/HCPCS: 70551 ==

== ENCOUNTER 2025-03-23 10:15 | Outpatient (REF) | payer MEDICARE, SELFPAY ==
--- OUTSIDE RECORDS SUMMARY | 2024-11-28 05:45 | XMS_ITS ---
Author Organization Zacarias Zurita III, MD Address [address] [place] [address] Care Team Providers Care Regulatory Affairs Spec Name Role Phone Zacarias Zurita Primary Care Provider [phone] Allergies Allergen (clinical drug ingredient) Drug/Non Drug Allergy documented on EMR Reaction Allergy Type Onset Date Status No Known Drug Allergy Unknown Drug Allergy Active Reason For Referral Reason right medial knee pa in Diagnosis 1 Acute pain of right knee (M25.561) Referral Organization Zacarias Zurita III, MD Referring Provider First Name Zacarias Referring Provider Last Name Yudith Referring Provider Speciality Internal M edicine Referred Provider Davy[facility], [facility]) Referred Provider Specialty Orthopedic [facility] General Notes D, Radha 12/03/2024 09:14:28 AM >Referral, cover sheet and Xr knee faxed., D, Radha 12/04/2024 09:39:38 AM > Patient was able to get an appointment for 12/05/24 @ 10:15am. [facility] is requesting a CD of the Xr that the patient had done on 11/21/24. Patient was advised to call medical records at to request them Referral Priority Routine Referral Appointment Date 12/05/2024 Reason right knee pain Diagnosis 1 Acute midline low ba ck pain with right-sided sciatica (M54.41) Diagnosis 2 Acute pain of right knee (M25.561) Referral Organization Zacarias Zurita III, MD Referring Provider First Name Zacarias Referring Provider Last Name Yudith Referring Provider Speciality Internal M edicine Referred Organization [facility] Referred Provider [facility], [facility] Referred Address [address] [place] [phone], Referred Provider Specialty Pain Medicin e General Notes José Miguel Radha 12/03/2024 09:22:13 AM > Referral and Xr's faxed. to [facility] pain management Referral Priority Routine REASON FOR VISIT Right Knee and suggs pain, Hypertension, Benign prostatic hypertrophy, Low back pain Medications Medication SIG (Take, Route, Frequency, Duration) Notes Start Date End Date Status hydroCHLOROthiazide 12.5 MG 1 capsule in the morning Orally Once a day Active Norvasc 10 MG 1 tablet Orally Once a day Active Gabapentin 100 MG 1 capsule at bedtime Orally three times a day for 14 days 11/28/2024 Active Tylenol Active Social History Tobacco Use: Social History Observation Description Date Details (start date - stop date) Never Smoker NA - NA Sex Assigned At : Social History Observation Description Sex Assigned At Male Tobacco Use/Smoking Question Answer Notes Patient is a nonsmoker Additional Findings: Tobacco Non-User Aggressive non-smoker Vital Signs Temperature 97.7 degrees Fahrenheit 11/29/19 25 Blood pressure systolic 120 mm Hg 11/29/19 25 Blood pressure diastolic 74 mm Hg 025 Heart Rate 59 /min 11/28/2024 Height 65 in 11/28/2024 Weight 170 lbs 11/28/2024 BMI 28.29 kg/m2 11/28/2024 Encounters Encounter Location Date Provider Diagnosis Zacarias Zurita III, MD [address] [place] [address] [place] [address] 11/28/2024 Zacarias Zurita Acute midline low ba ck pain with right-sided sciatica M54.41 ; Right anterior knee pain M25.561 ; Overweight E66.3 ; Basal cell carcinoma (BCC), unspecified site C44.91 ; Right inguinal hernia K40.90 and BPH (benign prostatic hyperplasia) N40.0 Assessments Encounter Date Diagnosis (ICD Code) Assessment Notes Treatment Notes Treatment Clinical Notes 11/28/2024 Acute midline low back pain with right-sided sciatica (ICD-10 - M54.41) The back pain has completely resolved. 11/28/2024 Right anterior knee pain (ICD-10 - M25.561) This began with the back pain. X-rays of the knee have been ordered. Is no effusion. There is a sciatic component to the back pain but the knee itself appears to be a source of discomfort. 11/28/2024 Overweight (ICD-10 - E66.3) He has lost 5 pounds now weighing 173 pounds. His body mass index is 28.79. We reviewed the elements of a weight loss diet. I recommended weight loss at a rate of one half of a pound per week. 11/28/2024 Basal cell carcinoma (BCC), unspecified site (ICD-10 - C44.91) No new skin cancers were noticed today. 11/28/2024 Right inguinal hernia (ICD-10 - K40.90) The hernia has been repaired. He will call me if anythingThe chest infection or bleeding occurs. 11/28/2024 BPH (benign prostatic hyperplasia) (ICD-10 - N40.0) He has been rising from sleep once or twice a night to urinate. We have discussed lifestyle modification as a way to reduce nocturia. He was encouraged to resume the hydrochlorothiazide . Plan Of Treatment Medication Medication Name Sig Start Date Stop Date Notes hydroCHLOROthiazide 12.5 MG 1 capsule in the morning Orally Once a day Norvasc 10 MG 1 tablet Orally Once a day Gabapentin 100 MG 1 capsule at bedtime Orally three times a day for 14 days 11/28/2024 Tylenol Referrals Referral Date Details 11/28/2024 11/28/2024, right me dial knee pain, [facility] ([facility] 11/28/2024 11/28/2024, right kn ee pain, [facility], [address] [place] [address], [phone], Next Appt Details Follow Up: 14 day check, Oden son: OV Provider Name:Zacarias Zurita, 04/09/2025 09:30:00 AM, [address] [place] [address] , [address], [id number], Progress Notes * Jarett MAYNARDDOB: 6 (79 yo M)Acc No.[id number]:11/28/2024 Progress Notes Patient: Jarett FELIZ Provider: Che Zurita MD :1945 A ge:79 Y S ex:Male Date:11/28/2024 Address:[address], [place], [id number] Subjective: * Chief Complaints: * R ight Knee and suggs painHypertensionBenign prostatic hypertrophyLow back pain * HPI: C OVID-19 Screening: Naveen garcia returns for ongoing orthopedic pain. 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 He has severe pain in his right knee radiant to the medial right suggs which is making it exhausting for him to drive the truck. His low back pain has resolved and is much better. He is adamant that he needs relief of this pain. I have ordered an x-ray of the knee and referred him to orthopedics. He is going to take a combination of to Tylenol and to ibuprofen 4 times a day. I have offered to give him tramadol but he has declined fearing it will impair his driving. The pain is in the area of the quadriceps tendon and tibial plateau. Questions H ave you had any new onset fever, chills, cough, congestion, sore throat, shortness of breath, muscle aches? N o * ROS: G eneral/Constitutional: pain R ight knee and suggs. C hills d enies. F atigue a dmits. F ever d enies. E NT: Decreased hearing d enies. R espiratory: Cough d enies. C ardiovascular: Chest pain with exertion d enies. D yspnea on exertion?denies. S hortness of breath d enies. G astrointestinal: Constipation o ccasional. D ecreased appetite d enies. D iarrhea d enies. H eartburn d enies. N ausea d enies. R ectal bleeding d enies. V omiting d enies. H ematology: bruising d enies. p etechiae d enies. S wollen glands n one have been noted. G enitourinary: Frequent urination o nce a night. M usculoskeletal: Muscle aches d enies. P ainful joints R ight knee.?Sciatica d enies. W eakness d enies. S kin: Itching d enies. R edgardo d enies. S kin lesion(s)?denies. N eurologic: Difficulty speaking d enies. D izziness d enies.?Headache d enies. L ow back pain d enies. P sychiatric: Depressed mood d enies. * Medical History: * Surgical History: E xcision of skin cancer from scalp 2017Skin lesion on his back 2019arm and nose basal cell removal 2Right inguinal Herniorrhaphy 07/27/23Cataract surgery 2013 * Hospitalization/Major Diagno stic Procedure: N o history * Family History: F ather: 69 yrs. M other: 56 yrs, diagnosed with HTN. S pouse: alive. 1 brother(s) . . He is not aware of any inherited cancer family syndrome. * Social History: T obacco Use: T obacco Use/Smoking P atron is a n onsmoker A dditional Findings: Tobacco Non-User A ggressive non-smoker H radha was born in [place]. He has been to [facility] for 6 years. 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 He has no children. * Medications: T akingNorvasc 10 MG Tablet 1 tablet Orally Once a day hydroCHLOROthiazide 12.5 MG Capsule 1 capsule in the morning Orally Once a day Tylenol Medication List reviewed and reconciled with the patientTaking Norvasc 10 MG Tablet 1 tablet Orally Once a day Taking hydroCHLOROthiazide 12.5 MG Capsule 1 capsule in the morning Orally Once a day Taking Tylenol Medication List reviewed and reconciled with the patient * Allergies: N o Known Drug Allergyno[Allergies Verified] Objective: * Vitals: H t: 65, Wt:170, BMI:28.29, BP:120/74, HR:59, Temp:97.7, Wt-k.11. * Examination: G eneral Examination: GENERAL APPEARANCE: p leasant, well nourished, well developed, in no acute distress, calm and relaxed, overweight, elderly man. HEAD: a traumatic, normocephalic. EYES: e elisa, perrla, anicteric, conjugate. EARS: n ormal. NOSE: s eptum intact. ORAL CAVITY: n ormal, unremarkable. NECK/THYROID: n o jugular venous distention, no carotid bruit, thyroid normal. LYMPH NODES: n o enlarged lymph nodes,spleen normal. SKIN: n o suspicious lesions, anicteric. HEART: n o clicks, gallops, murmurs, or rubs, regular rhythm, S1, S2 normal, no s3, or vascular bruits. LUNGS: c lear to auscultation . BREASTS: no masses palpable bilaterally. ABDOMEN: b owel sounds normal, no ascites, no organomegaly, no mass, overweight. RECTAL EXAM: n ot examined. MUSCULOSKELETAL: 7 the right knee is unremarkable. I do not see an effusion. The area of pain in the medial right tibial plateau is tender to palpation but without erythema. The popliteal space is normal range of motion of the knee is painful.. PERIPHERAL PULSES: n ormal. NEUROLOGIC: a lert and oriented, cranial nerves 2-12 grossly intact, deep tendon reflexes 2+ symmetrical, motor strength normal upper and lower extremities, sensory exam intact. PSYCH: a lert, oriented, cognitive function intact, cooperative with exam, speech clear, thought process logical, goal directed. Assessment: * Assessment: 1. R ight anterior knee pain - M25.561 (Primary) N otes :This began with the back pain. X-rays of the knee have been ordered. Is no effusion. There is a sciatic component to the back pain but the knee itself appears to be a source of discomfort. 2 . A cute midline low back pain with right-sided sciatica - M54.41 N otes :The back pain has completely resolved. 3 . O verweight - E66.3 N otes :He has lost 5 pounds now weighing 173 pounds. His body mass index is 28.79. We reviewed the elements of a weight loss diet. I recommended weight loss at a rate of one half of a pound per week. 4 . B jamar cell carcinoma (BCC), unspecified site - C44.91 N otes :No new skin cancers were noticed today. 5 . R ight inguinal hernia - K40.90 N otes :The hernia has been repaired. He will call me if anythingThe chest infection or bleeding occurs. 6 . B PH (benign prostatic hyperplasia) - N40.0 N otes :He has been rising from sleep once or twice a night to urinate. We have discussed lifestyle modification as a way to reduce nocturia. He was encouraged to resume the hydrochlorothiazide. Plan: * Treatment: 2. O thers Referral To:[facility] ([facility] Orth[facility] Reason:right medial knee pain Referral To:[facility] Reason:right knee pain * Procedure Codes: * Preventive Medicine: Counseling: C are goal follow-up plan: Counseling for abnormal BMI given Y es Above Normal BMI Follow-up D ietary management education, guidance, and counseling, Dietary needs education * Follow Up: 1 4 day check (Reason: OV) * Images: * Sign off status: Completed true * Provider: Che Zurita MD Date: 0 11/28/2024 Generated for Reilly dumas/Nya/Lynn on: 0 03/23/2025 10:23 AM EDT History and Physical Notes * HPI (History of Present Illness) Category Sub-Category Detail Notes COVID-19 Screening Questions Have you had any new onset fever, chills, cough, congestion, sore throat, shortness of breath, muscle aches?: No Examination Category Sub-Category Detail Notes General Examination GENERAL APPEARANCE: pleasant , well nourished, well developed, in no acute distress, calm and relaxed, overweight, elderly man HEAD: atraumatic, normocep halic EYES: [...] BREASTS: no masses palpable b ilaterally MUSCULOSKELETAL: 7 the right knee is unremarkable. I do not see an effusion. The area of pain in the medial right tibial plateau is tender to palpation but without erythema. The popliteal space is normal range of motion of the knee is painful. LYMPH NODES: no enlarged lymph no roberto,spleen normal RECTAL EXAM: not examined PSYCH: alert, oriented, cog nitive function intact, cooperative with exam, speech clear, thought process logical, goal directed ORAL CAVITY: normal, unremarkable Consultation Request Notes Referral Date Referring Provider Referred Provider Not es 11/28/2024 Zacarias Zurita [facility] ([place]) right medial knee pain 11/28/2024 Zacarias Zurita [facility], [facility] right knee pain
--- OUTSIDE RECORDS SUMMARY | 2024-12-12 07:15 | XMS_ITS ---
Author Organization Zacarias Zurita III, MD Address [address] [address] Care Team Providers Care Cable Splicer Name Role Phone Zacarias Zurita Primary Care Provider [phone] Allergies Allergen (clinical drug ingredient) Drug/Non Drug Allergy documented on EMR Reaction Allergy Type Onset Date Status No Known Drug Allergy Unknown Drug Allergy Active REASON FOR VISIT Right knee pain, Osteoarthritis right knee, Hypertension, Benign prostatic hypertrophy Medications Medication SIG (Take, Route, Frequency, Duration) Notes Start Date End Date Status Tamsulosin HCl 0.4 MG 1 capsule Orally O nce a day for 30 days 12/12/2024 12/07/2025 Active Norvasc 10 MG 1 tablet Orally Once a day Active hydroCHLOROthiazide 12.5 MG 1 capsule in the morning Orally Once a day Active Gabapentin 100 MG 1 capsule at bedtime Orally three times a day 11/28/2024 Active Tylenol Active Social History Tobacco Use: Social History Observation Description Date Details (start date - stop date) Never Smoker NA - NA Sex Assigned At : Social History Observation Description Sex Assigned At Male Tobacco Use/Smoking Question Answer Notes Patient is a nonsmoker Additional Findings: Tobacco Non-User Aggressive non-smoker Vital Signs Temperature 97.5 degrees Fahrenheit 12/13/19 25 Blood pressure systolic 139 mm Hg 12/13/19 25 Blood pressure diastolic 71 mm Hg 025 Heart Rate 58 /min 12/12/2024 Height 65 in 12/12/2024 Weight 167 lbs 12/12/2024 BMI 27.79 kg/m2 12/12/2024 Encounters Encounter Location Date Provider Diagnosis Zacarias Zurita III, MD [address] [place] [address] [place] [address] 12/12/2024 Zacarias Zurita Right anterior knee pain M25.561 ; Overweight E66.3 ; Hypertension I10 ; BPH (benign prostatic hyperplasia) N40.0 and Right inguinal hernia K40.90 Assessments Encounter Date Diagnosis (ICD Code) Assessment Notes Treatment Notes Treatment Clinical Notes 12/12/2024 Right anterior knee pain (ICD-10 - M25.561) He has had some relief with the gabapentin and we will try a higher dose. An injection in the knee at [facility] 1 or 2 days of relief only. 12/12/2024 Overweight (ICD-10 - E66.3) He has lost 5 pounds now weighing 173 pounds. His body mass index is 28.79. We reviewed the elements of a weight loss diet. I recommended weight loss at a rate of one half of a pound per week. 12/12/2024 Hypertension (ICD-10 - I10) His blood pressure is stable at 138/85 and he has been compliant with his medications. He will return in the near future to recheck the blood pressure. Treatment will be implemented if it remains at this level. 12/12/2024 BPH (benign prostatic hyperplasia) (ICD-10 - N40.0) He has been rising from sleep 3 or 4 times a night to urinate. We have discussed lifestyle modification as a way to reduce nocturia. I have discontinued the hydrochlorothiazide and presscribed tamsulosin 0.4 mg daily. His blood pressure and nocturia will be carefully evaluated frequently. 12/12/2024 Right inguinal hernia (ICD-10 - K40.90) The hernia has been repaired. He will call me if anythingThe chest infection or bleeding occurs. Plan Of Treatment Medication Medication Name Sig Start Date Stop Date Notes Tamsulosin HCl 0.4 MG 1 capsule Orally O nce a day for 30 days 12/12/2024 12/07/2025 Norvasc 10 MG 1 tablet Orally Once a day hydroCHLOROthiazide 12.5 MG 1 capsule in the morning Orally Once a day Gabapentin 100 MG 1 capsule at bedtime Orally three times a day 11/28/2024 Tylenol Next Appt Details Follow Up: 4 Weeks, Reason: OV Provider Name:Zacarias Zurita, 04/09/2025 09:30:00 AM, [address] [place] [address] [address], [place], [address], Progress Notes * Jarett MAYNARDDOB: 6 (79 yo M)Acc No.[id number]:12/12/2024 Progress Notes Patient: Jarett FELIZ Provider: Che Zurita MD :1945 A ge:79 Y S ex:Male Date:12/12/2024 Address:[address] [place] [address] [facility] [place] Subjective: * Chief Complaints: * R ight knee painOsteoarthritis right kneeHypertensionBenign prostatic hypertrophy * HPI: C OVID-19 Screening: Naveen garcia returns for the pain in his right knee. 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 If his right knee hurts while using the accelerator and break. He had an injection in his right knee at [facility] a week ago. He did relieve the pain for 2 days. He finds the gabapentin 100 mg 3 or 4 times a day is helpful. I suggested he try at 200 mg dose and he agreed to do so when he is not driving.? He was able to walk today. He says some days it is painless and some days it prohibits driving. He also notes that the hydrochlorothiazide is making him urinate frequently at night.? We discussed this at length. I stopped the hydrochlorothiazide and gave him tamsulosin 0.4 mg at bedtime to see if this will lower his blood pressure and relieve the nocturia.He is very concerned about passing theDOT blood pressure portion of the examination keep his commercial license. Questions H ave you had any new onset fever, chills, cough, congestion, sore throat, shortness of breath, muscle aches? N o * ROS: G eneral/Constitutional: pain R ight knee. C hills d enies. F atigue?admits. F ever d enies. E NT: Decreased hearing d enies. R espiratory: Cough d enies. C ardiovascular: Chest pain with exertion d enies. D yspnea on exertion?denies. S hortness of breath d enies. G astrointestinal: Constipation o ccasional. D ecreased appetite d enies. D iarrhea d enies. H eartburn o ccasional. N ausea d enies. R ectal bleeding d enies. V omiting d enies. H ematology: bruising d enies. p etechiae d enies. S wollen glands n one have been noted. G enitourinary: Frequent urination f our or more times a night. ? M usculoskeletal: Muscle aches d enies. P [...] T obacco Use: T obacco Use/Smoking P atient is a n onsmoker A dditional Findings: Tobacco Non-User A ggressive non-smoker H radha was born in [place]. He has been to [facility] for 6 years. 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 He has no children. * Medications: T akingNorvasc 10 MG Tablet 1 tablet Orally Once a day hydroCHLOROthiazide 12.5 MG Capsule 1 capsule in the morning Orally Once a day Tylenol Gabapentin 100 MG Capsule 1 capsule at bedtime Orally three times a day Medication List reviewed and reconciled with the patientTaking Norvasc 10 MG Tablet 1 tablet Orally Once a day Taking hydroCHLOROthiazide 12.5 MG Capsule 1 capsule in the morning Orally Once a day Taking Tylenol Taking Gabapentin 100 MG Capsule 1 capsule at bedtime Orally three times a day Medication List reviewed and reconciled with the patient * Allergies: N o Known Drug Allergyno[Allergies Verified] Objective: * Vitals: H t: 65, Wt:167, BMI:27.79, BP:139/71, HR:58, Temp:97.5, Wt-k.75. * P ast Orders: Lab:Lipid Panel * Collection Date 10/25/2024 03/30/2024 12/02/2022 Collection Time 09:05 AM 08:36 AM 09:24 AM Order Date 10/25/2024 03/30/2024 12/02/2022 Triglycerides 87 (Ref Range: <150 mg/dL) 73 (Ref Range: <150 mg/dL) 114 (Ref Range: mg/dL) Cholesterol 205 H (Ref Range: <200 mg/dL) 198 (Ref Range: <200 mg/dL) 207 (Ref Range: mg/dL) LDL Cholesterol Calculated 141 H (Ref Range: <100 mg/dL) 137 H (Ref Range: <100 mg/dL) 145 (Ref Range: mg/dl) HDL Cholesterol 47 (Ref Range: >40 mg/dL) 47 (Ref Range: >40 mg/dL) 40 (Ref Range: mg/dL) * Lab:[facility] [place]. Pane l Fast * Collection Date 10/25/2024 03/30/2024 12/02/2022 Collection Time 09:05 AM 08:36 AM 09:24 AM Order Date 10/25/2024 03/30/2024 12/02/2022 Sodium 143 (Ref Range: 135-145 mmol/L) 144 (Ref Range: 135-145 mmol/L) 141 (Ref Range: 135-145 mmol/L) Bilirubin Total 0.8 (Ref Range: 0.0-1.0 mg/dL) 0.5 (Ref Range: 0.0-1.0 mg/dL) 0.8 (Ref Range: 0.0-1.0 mg/dL) Aspartate Amino Transferase 22 (Ref Range: 5-37 U/L) 17 (Ref Range: 5-37 U/L) 17 (Ref Range: 5-37 U/L) Alanine Aminotransferase 20 (Ref Range: 0-40 U/L) 18 (Ref Range: 0-40 U/L) 20 (Ref Range: 0-40 U/L) Total Protein 7.1 (Ref Range: 6.5-8.0 g/dL) 7.2 (Ref Range: 6.5-8.0 g/dL) 7.0 (Ref Range: 6.5-8.0 g/dL) Albumin Level 4.1 (Ref Range: 3.5-5.0 g/dL) 4.0 (Ref Range: 3.5-5.0 g/dL) 4.0 (Ref Range: 3.5-5.0 g/dL) Alkaline Phosphatase 51 (Ref Range: 39-117 U/L) 52 (Ref Range: 39-117 U/L) 50 (Ref Range: 39-117 U/L) Potassium 3.7 (Ref Range: 3.3-5.1 mmol/L) 3.9 (Ref Range: 3.3-5.1 mmol/L) 3.9 (Ref Range: 3.3-5.1 mmol/L) Chloride 109 H (Ref Range: 96-108 mmol/L) 111 H (Ref Range: 96-108 mmol/L) 107 (Ref Range: 96-108 mmol/L) Carbon Dioxide 27 (Ref Range: 22-29 mmol/L) 26 (Ref Range: 22-29 mmol/L) 27 (Ref Range: 22-29 mmol/L) Anion Gap 11 L (Ref Range: 12-20) 11 L (Ref Range: 12-20) 11 L (Ref Range: 12-20) Blood Urea Nitrogen 24 H (Ref Range: 9-16 mg/dL) 16 (Ref Range: 9-16 mg/dL) 13 (Ref Range: 9-16 mg/dL) Creatinine 1.02 (Ref Range: 0.5-1.4 mg/dL) 1.04 (Ref Range: 0.5-1.4 mg/dL) 0.92 (Ref Range: 0.5-1.4 mg/dL) Estimated Glomerular Filt Rate > 60 > 60 > 60 Glucose Fasting 97 (Ref Range: 60-99 mg/dL) 102 H (Ref Range: 60-99 mg/dL) 91 (Ref Range: 60-99 mg/dL) Calcium 9.4 (Ref Range: 8.4-10.2 mg/dL) 9.2 (Ref Range: 8.4-10.2 mg/dL) 9.1 (Ref Range: 8.4-10.2 mg/dL) * Lab:Complete Blood Count Aut o Diff * Collection Date 10/25/2024 03/30/2024 12/02/2022 Collection Time 09:05 AM 08:36 AM 09:24 AM Order Date 10/25/2024 03/30/2024 12/02/2022 White Blood Count 7.3 (Ref Range: 4.8-10.8 X10*3/uL) 8.2 (Ref Range: 4.8-10.8 X10*3/uL) 7.4 (Ref Range: 4.8-10.8 X10*3/uL) Red Blood Count 4.40 L (Ref Range: 4.60-5.80 X10*6/uL) 4.37 L (Ref Range: 4.60-5.80 X10*6/uL) 4.54 L (Ref Range: 4.60-5.80 X10*6/uL) Hemoglobin 13.7 L (Ref Range: 14.0-18.0 g/dl) 13.9 L (Ref Range: 14.0-18.0 g/dl) 14.0 (Ref Range: 14.0-18.0 g/dl) Hematocrit 39.6 L (Ref Range: 42.0-52.0 %) 39.8 L (Ref Range: 42.0-52.0 %) 40.3 L (Ref Range: 42.0-52.0 %) Mean Corpuscular Volume 90.0 (Ref Range: 80.0-98.0 fL) 91.1 (Ref Range: 80.0-98.0 fL) 88.8 (Ref Range: 80.0-98.0 fL) Mean Corpuscular Hemoglobin 31.1 (Ref Range: 27.0-33.0 pg) 31.8 (Ref Range: 27.0-33.0 pg) 30.8 (Ref Range: 27.0-33.0 pg) Mean Corpuscular HGB Conc 34.6 (Ref Range: 31.0-36.0 g/dl) 34.9 (Ref Range: 31.0-36.0 g/dl) 34.7 (Ref Range: 31.0-36.0 g/dl) Red Cell Distribution Width 13.1 (Ref Range: 11.0-16.0 %) 13.2 (Ref Range: 11.0-16.0 %) 13.0 (Ref Range: 11.0-16.0 %) Platelet Count 244 (Ref Range: 160-400 X10*3/uL) 265 (Ref Range: 160-400 X10*3/uL) 268 (Ref Range: 160-400 X10*3/uL) Mean Platelet Volume 10.4 (Ref Range: 9.4-12.4 fL) 10.2 (Ref Range: 9.4-12.4 fL) 10.3 (Ref Range: 9.4-12.4 fL) Neutrophils Percent Auto 53.4 (Ref Range: 45-73 %) 55.8 (Ref Range: 45-73 %) 54.9 (Ref Range: 45-73 %) Imm Gran Pct Auto 0.3 (Ref Range: 0.0-0.4 %) 0.4 (Ref Range: 0.0-0.4 %) 0.1 (Ref Range: 0.0-0.4 %) Lymphocytes Percent Auto 35.0 (Ref Range: 20-40 %) 31.8 (Ref Range: 20-40 %) 33.1 (Ref Range: 20-40 %) Monocytes Percent Auto 8.3 (Ref Range: 2-11 %) 8.2 (Ref Range: 2-11 %) 8.8 (Ref Range: 2-11 %) Eosinophils Percent Auto 2.2 (Ref Range: 0-4 %) 2.9 (Ref Range: 0-4 %) 2.4 (Ref Range: 0-4 %) Basophils Percent Auto 0.8 (Ref Range: 0-2 %) 0.9 (Ref Range: 0-2 %) 0.7 (Ref Range: 0-2 %) NRBC Pct Auto 0.0 (Ref Range: 0.0-0.2 /100WBC) 0.0 (Ref Range: 0.0-0.2 /100WBC) 0.0 (Ref Range: 0.0-0.2 /100WBC) Neutrophils Absolute Auto 3.9 (Ref Range: 2.0-8.3 x10*3/uL) 4.6 (Ref Range: 2.0-8.3 x10*3/uL) 4.1 (Ref Range: 2.0-8.3 x10*3/uL) Imm Gran Abs Auto 0.02 (Ref Range: 0.00-0.03 X10*3/uL) 0.03 (Ref Range: 0.00-0.03 X10*3/uL) 0.01 (Ref Range: 0.00-0.03 X10*3/uL) Lymphocytes Absolute Auto 2.6 (Ref Range: 1.2-4.9 X10*3/uL) 2.6 (Ref Range: 1.2-4.9 X10*3/uL) 2.4 (Ref Range: 1.2-4.9 X10*3/uL) Monocytes Absolute Auto 0.6 (Ref Range: 0.1-1.2 X10*3/uL) 0.7 (Ref Range: 0.1-1.2 X10*3/uL) 0.7 (Ref Range: 0.1-1.2 X10*3/uL) Eosinophils Absolute Auto 0.2 (Ref Range: 0.0-0.4 X10*3/uL) 0.2 (Ref Range: 0.0-0.4 X10*3/uL) 0.2 (Ref Range: 0.0-0.4 X10*3/uL) Basophils Absolute Auto 0.1 (Ref Range: 0.0-0.2 X10*3/uL) 0.1 (Ref Range: 0.0-0.2 X10*3/uL) 0.1 (Ref Range: 0.0-0.2 X10*3/uL) NRBC Abs Auto 0.000 (Ref Range: 0.0-0.012 X10*3/uL) 0.000 (Ref Range: 0.0-0.012 X10*3/uL) 0.000 (Ref Range: 0.0-0.012 X10*3/uL) ???Imaging:XR lumbar spine 2-3V (Order Date - 11/16/2024) (Performed Date - 11/16/2024) ???Imaging:XR Knee Colby 4V (Order Date - 11/16/2024) (Performed Date - 11/16/2024) ???Imaging:XR sacrum coccyx min 2V (Order Date - 11/16/2024) (Performed Date - 11/16/2024) * Examination: G eneral Examination: GENERAL APPEARANCE: p shellie, well nourished, well developed, in no acute [...] overweight. RECTAL EXAM: n ot examined. MUSCULOSKELETAL: no clubbing, cyanosis or edema, Crepitus and pain to range of motion of the right knee. PERIPHERAL PULSES: n ormal. NEUROLOGIC: a lert and oriented, cranial nerves 2-12 grossly intact, deep tendon reflexes 2+ symmetrical, motor strength normal upper and lower extremities, sensory exam intact. PSYCH: a lert, oriented. Assessment: * Assessment: 1. R ight anterior knee pain - M25.561 (Primary) N otes :He has had some relief with the gabapentin and we will try a higher dose. An injection in the knee at [facility] 1 or 2 days of relief only. 2 . O verweight - E66.3 N otes :He has lost 5 pounds now weighing 173 pounds. His body mass index is 28.79. We reviewed the elements of a weight loss diet. I recommended weight loss at a rate of one half of a pound per week. 3 . H ypertension - I10 N otes :His blood pressure is stable at 138/85 and he has been compliant with his medications. He will return in the near future to recheck the blood pressure. Treatment will be implemented if it remains at this level. 4 . B PH (benign prostatic hyperplasia) - N40.0 N otes :He has been rising from sleep 3 or 4 times a night to urinate. We have discussed lifestyle modification as a way to reduce nocturia. I have discontinued the hydrochlorothiazide and presscribed tamsulosin 0.4 mg daily. His blood pressure and nocturia will be carefully evaluated frequently. 5 . R ight inguinal hernia - K40.90 N otes :The hernia has been repaired. He will call me if anythingThe chest infection or bleeding occurs. Plan: * Treatment: 2. O thers Continue Norvasc Tablet, 10 MG, 1 tablet, Orally, Once a day; C ontinue Tylenol; C ontinue Gabapentin Capsule, 100 MG, 1 capsule at bedtime, Orally, three times a day; S tart Tamsulosin HCl Capsule, 0.4 MG, 1 capsule, Orally, Once a day, 30 days, 30, Refills 11. * Procedure Codes: * Preventive Medicine: Counseling: C are goal follow-up plan: Counseling for abnormal BMI given Y es Above Normal BMI Follow-up D ietary needs education * Follow Up: 4 Weeks (Reason: OV) * Images: * Sign off status: Completed true * Provider: Che Zurita MD Date: 0 12/12/2024 Generated for Reilly dumas/Nya/Gelaitting on: 0 03/23/2025 10:24 AM EDT History and Physical Notes * [...] BREASTS: no masses palpable b ilaterally MUSCULOSKELETAL: no clubbing, cyanosi s or edema, Crepitus and pain to range of motion of the right knee LYMPH NODES: no enlarged lymph no roberto,spleen normal RECTAL EXAM: not examined PSYCH: alert, oriented ORAL CAVITY: normal, unremarkable
--- OUTSIDE RECORDS SUMMARY | 2025-01-09 06:15 | XMS_ITS ---
Author Organization Zacarias Zurita III, MD Address [address] [place] [address] Care Team Providers Care Feather Mixer Name Role Phone Zacarias Zurita Primary Care Provider Allergies Allergen (clinical drug ingredient) Drug/Non Drug Allergy documented on EMR Reaction Allergy Type Onset Date Status No Known Drug Allergy Unknown Drug Allergy Active Reason For Referral Reason tremor and right arm weakness ? new onset parkinson's disease Diagnosis 1 Tremor (R25.1) Diagnosis 2 Right arm weakness ( R29.898) Diagnosis 3 Parkinson disease, s ymptomatic (G20.A1) Referral Organization Zacarias Zurita III, MD Referring Provider First Name Zacarias Referring Provider Last Name Yudith Referring Provider Speciality Internal M edicine Referred Provider Selwyn Jacobson Referred Provider Specialty Neurology General Notes Kelly Monroe CMA 01/09 11:31:46 AM >called Dr Jacobson office [phone] made pt appt with Dr Jacobson for 03/07/2025 at 11am appt information mailed and called to ptFer Suzanne CMA 01/16/2025 01:21:23 PM >ref/demo/progress note faxed to Dr Jacobson office pt has appt on 03/07/2025 at 11:00am Referral Priority Routine Referral Appointment Date 03/07/2025 REASON FOR VISIT Right knee pain, Hypertension, Benign prostatic hypertrophy Medications Medication SIG (Take, Route, Frequency, Duration) Notes Start Date End Date Status Norvasc 10 MG TAKE ONE TABLET BY M OUTH EVERY DAY Active Tylenol Active Gabapentin 100 MG 1 capsule at bedtime Orally three times a day 11/28/2024 Active hydroCHLOROthiazide 12.5 MG 1 capsule in the morning Orally Once a day Active Tamsulosin HCl 0.4 MG 1 capsule Orally O nce a day 12/12/2024 Active Social History Tobacco Use: Social History Observation Description Date Details (start date - stop date) Never Smoker NA - NA Sex Assigned At : Social History Observation Description Sex Assigned At Male Tobacco Use/Smoking Question Answer Notes Patient is a nonsmoker Additional Findings: Tobacco Non-User Aggressive non-smoker Vital Signs Temperature 98.0 degrees Fahrenheit 01/10/20 25 Blood pressure systolic 112 mm Hg 01/10/20 25 Blood pressure diastolic 69 mm Hg 025 Heart Rate 80 /min 01/09/2025 Height 65 in 01/09/2025 Weight 169 lbs 01/09/2025 BMI 28.12 kg/m2 01/09/2025 Encounters Encounter Location Date Provider Diagnosis Zacarias Zurita III, MD [address] [place] [address] [place] [address] 01/09/2025 Zacarias Zurita Right anterior knee pain M25.561 ; Hypertension I10 ; Right inguinal hernia K40.90 ; BPH (benign prostatic hyperplasia) N40.0 and Overweight E66.3 Assessments Encounter Date Diagnosis (ICD Code) Assessment Notes Treatment Notes Treatment Clinical Notes 01/09/2025 Right anterior knee pain (ICD-10 - M25.561) He has had some relief with the gabapentin and we will try a higher dose. An injection in the knee at [facility] has markedly improved the pain and he is delighted. 01/09/2025 Hypertension (ICD-10 - I10) His blood pressure is stable at 112/60 and he has been compliant with his medications. He will return in the near future to recheck the blood pressure. Treatment will be implemented if it remains at this level. 01/09/2025 Right inguinal hernia (ICD-10 - K40.90) The hernia has been repaired. He will call me if anythingThe chest infection or bleeding occurs. 01/09/2025 BPH (benign prostatic hyperplasia) (ICD-10 - N40.0) He has been rising from sleep 3 or 4 times a night to urinate. We have discussed lifestyle modification as a way to reduce nocturia. I have discontinued the hydrochlorothiazide and presscribed tamsulosin 0.4 mg daily. His blood pressure and nocturia will be carefully evaluated frequently. 01/09/2025 Overweight (ICD-10 - E66.3) He has lost 5 pounds now weighing 173 pounds. His body mass index is 28.79. We reviewed the elements of a weight loss diet. I recommended weight loss at a rate of one half of a pound per week. Plan Of Treatment Medication Medication Name Sig Start Date Stop Date Notes Norvasc 10 MG TAKE ONE TABLET BY M OUTH EVERY DAY Tylenol Gabapentin 100 MG 1 capsule at bedtime Orally three times a day 11/28/2024 hydroCHLOROthiazide 12.5 MG 1 capsule in the morning Orally Once a day Tamsulosin HCl 0.4 MG 1 capsule Orally Once a day 12/13/19 25 Referrals Referral Date Details 01/09/2025 01/09/2025, tremor a nd right arm weakness ? 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 He has recently had severe right knee pain make it very difficult. He has been to [facility] and had an injection in the right knee which has relieved most of the pain. He is quite happy with this result. His nocturia is unchanged. His blood pressure today was stable. He will continue on current medications with close follow-up. Questions H ave you had any new onset fever, chills, cough, congestion, sore throat, shortness of breath, muscle aches? N o * ROS: G eneral/Constitutional: pain R ight knee, improved. C hills d enies. F atigue a [...] have been noted. G enitourinary: Frequent urination t wice a night. M usculoskeletal: Muscle aches d [...] ggressive non-smoker Naveen garcia was born in [place]. He has been to [facility] for 6 years. 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 He has no children. * Medications: T akingTylenol Gabapentin 100 MG Capsule 1 capsule at bedtime Orally three times a day Tamsulosin HCl 0.4 MG Capsule 1 capsule Orally Once a day , stop date 12/07/2025hydroCHLOROthiazide 12.5 MG Capsule 1 capsule in the morning Orally Once a day Norvasc 10 MG Tablet TAKE ONE TABLET BY MOUTH EVERY DAY Medication List reviewed and reconciled with the patientTaking Tylenol Taking Gabapentin 100 MG Capsule 1 capsule at bedtime Orally three times a day Taking Tamsulosin HCl 0.4 MG Capsule 1 capsule Orally Once a day , stop date 12/07/2025Taking hydroCHLOROthiazide 12.5 MG Capsule 1 capsule in the morning Orally Once a day Taking Norvasc 10 MG Tablet TAKE ONE TABLET BY MOUTH EVERY DAY Medication List reviewed and reconciled with the patient * Allergies: N o Known Drug Allergyno[Allergies Verified] Objective: * Vitals: H t: 65, Wt:169, BMI:28.12, BP:112/69, HR:80, Temp:98.0, Wt-k.66. * Examination: G eneral Examination: GENERAL APPEARANCE: p leasant, well nourished, well developed, in no acute distress, calm and relaxed, overweight, man. HEAD: a traumatic, normocephalic. EYES: e [...] overweight. RECTAL EXAM: n ot examined. MUSCULOSKELETAL: e xtremities unremarkable, no clubbing, cyanosis or edema, No effusion right knee, improved range of motion right knee no pain to range of motion, decreased range of motion lumbar spine. PERIPHERAL PULSES: n ormal. NEUROLOGIC: a lert and oriented, cranial nerves 2-12 grossly intact, deep tendon reflexes 2+ symmetrical, motor strength normal upper and lower extremities, sensory exam intact. PSYCH: a lert, oriented, thought process logical, goal directed, speech clear, cognitive function intact. Assessment: * Assessment: 1. R ight anterior knee pain - M25.561 (Primary) N otes :He has had some relief with the gabapentin and we will try a higher dose. An injection in the knee at [facility] has markedly improved the pain and he is delighted. 2 . H ypertension - I10 N otes :His blood pressure is stable at 112/60 and he has been compliant with his medications. He will return in the near future to recheck the blood pressure. Treatment will be implemented if it remains at this level. 3 . R ight inguinal hernia - K40.90 N otes :The hernia has been repaired. He will call me if anythingThe chest infection or bleeding occurs. 4 . B PH (benign prostatic hyperplasia) - N40.0 N otes :He has been rising from sleep 3 or 4 times a night to urinate. We have discussed lifestyle modification as a way to reduce nocturia. I have discontinued the hydrochlorothiazide and presscribed tamsulosin 0.4 mg daily. His blood pressure and nocturia will be carefully evaluated frequently. 5 . O verweight - E66.3 N otes :He has lost 5 pounds now weighing 173 pounds. His body mass index is 28.79. We reviewed the elements of a weight loss diet. I recommended weight loss at a rate of one half of a pound per week. Plan: * Treatment: 2. O thers Continue Norvasc Tablet, 10 MG, TAKE ONE TABLET BY MOUTH EVERY DAY; C ontinue Tylenol; C ontinue Gabapentin Capsule, 100 MG, 1 capsule at bedtime, Orally, three times a day; C ontinue Tamsulosin HCl Capsule, 0.4 MG, 1 capsule, Orally, Once a day. Referral To:Selwyn Jacobson Neurology Reason:tremor and right arm weakness ? new onset parkinson's disease * Procedure Codes: * Preventive Medicine: Counseling: C are goal follow-up plan: Counseling for abnormal BMI given Y es Above Normal BMI Follow-up D ietary management education, guidance, and counseling * Follow Up: 6 Weeks (Reason: ov no tests) * Images: * Sign off status: Completed true * Provider: Che Zurita MD Date: 0 01/09/2025 Generated for Printi ng/Faxing/eTransmitting on: 0 03/23/2025 10:23 AM EDT History [...] extremities unremark able, no clubbing, cyanosis or edema, No effusion right knee, improved range of motion right knee no pain to range of motion, decreased range of motion lumbar spine LYMPH NODES: no enlarged lymph no roberto,spleen normal RECTAL EXAM: not examined PSYCH: alert, oriented, tho ught process logical, goal directed, speech clear, cognitive function intact ORAL CAVITY: normal, unremarkable Consultation Request Notes Referral Date Referring Provider Referred Provider Not josey 01/09/2025 Zacarias Zurita Muhammad tremor and right arm weakness ? new onset parkinson's disease
--- OUTSIDE RECORDS SUMMARY | 2025-01-24 08:30 | XMS_ITS ---
Author Organization Zacarias Zurita III, MD Address [address] [place] [address] Care Team Providers Care Precipitate Washer Name Role Phone Zacarias Zurita Primary Care Provider REASON FOR VISIT follow up Social History Sex Assigned At : Social History Observation Description Sex Assigned At Male Encounters Encounter Location Date Provider Diagnosis Zacarias Zurita III, MD [address] [place] [address] [place] [address] 01/24/2025 Zacarias Zurita Plan Of Treatment Next Appt Details Provider Name:Zacarias Zurita, 04/09/2025 09:30:00 AM, [address] [place] [address] [place], [address], Progress Notes * Jarett MAYNARDDOB: [birth year] (79 yo M)Acc No.[id number]:01/24/2025 Progress Notes Patient: Lissy ELIZABETH Jarett Cook Provider: Che Zurita MD :1945 A ge:79 Y S ex:Male Date:01/24/2025 Address: [address] [id number] Subjective: * Chief Complaints: * 1 . [...] MD Date: 0 01/24/2025 Generated for Reilly dumas/Nya/Gelaitting on: 0 03/23/2025 10:23 AM EDT
--- OUTSIDE RECORDS SUMMARY | 2025-02-20 05:45 | XMS_ITS ---
Author Organization Zacarias Zurita III, MD Address [address] [place] [address] Care Team Providers Care Post Tensioning Ironworker Name Role Phone Zacarias Zurita Primary Care [...] Date Provider Diagnosis Zacarias Zurita III, MD [address] [place] [address] [place] [address] 02/20/2025 Zacarias Parkerne Right anterior knee pain M25.561 ; Hypertension [...] son: annual exam review labs Provider Name:Zacarias Zurita, 04/09/2025 09:30:00 AM, [address] [place] [address] [address] [place] [address], [place], [address], Progress Notes * Jarett MAYNARDDOB: 6 (79 yo M)Acc No.[id number]:02/20/2025 Progress Notes Patient: Jarett FELIZ Provider: Che Zurita MD :1945 A ge:79 Y S ex:Male Date:02/20/2025 [id number] Subjective: * Chief Complaints: * O verweighResolving [...] He says he has adequate income for mcc. His blood pressure was stable today.No new [...] back 2019arm and nose basal cell removal ight inguinal Herniorrhaphy 07/27/23Cataract surgery 2013 * Hospitalization/Major [...] ggressive non-smoker Naveen garcia was born in [place]. He has been to [facility] for 6 years. 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
--- NOTE | ~2025-03-23 | MR_ITS ---
EXAMINATION: MR BRAIN WITHOUT CONTRAST CLINICAL INFORMATION: Parkinson's disease without dyskinesia. COMPARISON: None available. TECHNIQUE: MRI of the brain was obtained using routine sequences without contrast. FINDINGS: No restricted diffusion. No acute intracranial hemorrhage, mass effect, midline shift, hydrocephalus or herniation. Arita-white matter differentiation is normal. Multiple old lacunar infarcts with a cribriform pattern centered the lenticular nuclei and to a lesser extent thalami. Multifocal patchy and punctate deep periventricular white matter and subcortical white matter hyperintense T2 FLAIR signal involving centrum semiovale and mae radiata and to a lesser extent bones and right cerebellum. No signal abnormality within the substantia nigra related to absent swallow tail sign. Prominence of the extra-axial CSF spaces cerebral sulci and ventricles. Flow-void signal within the main cerebral vessels is normal. No signal abnormality or volume loss in the hippocampi. Sellar/suprasellar region demonstrated no signal abnormality or masses. Craniocervical junction demonstrates normal position of the cerebellar tonsils. MR/MR head/brain wo con IMPRESSION: No signal abnormality in the substantia nigra. No acute stroke/nonhemorrhagic ischemia or acute intracranial hemorrhage. 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
--- OUTSIDE RECORDS SUMMARY | 2025-03-23 10:23 | XMS_ITS | Patient Health Record ---
Author Organization Zacarias Zurita III, MD Address [address] [place] [address] Care Team Providers Care [employer] Name Role Phone Zacarias Zurita Primary Care Provider Allergies Allergen (clinical drug ingredient) Drug/Non Drug Allergy documented on EMR Reaction Allergy Type Onset Date Status No Known Drug Allergy Unknown Drug Allergy Active Results Component Value Reference Range Notes Complete Blood Count Auto Di ff Reviewed date:04/05/2024 09:34:19 AM Interpretation: Performing Lab:[facility], [address] [place] [phone] Notes/Report: White Blood Count 8.2 4.8-10.8 X10*3/uL [...] NRBC Abs Auto 0.000 0.0-0.012 X10*3/uL Comprehensive [place]. Panel Fa st Reviewed date:04/05/2024 09:34:19 AM Interpretation: Performing Lab:[facility], [address] [place] [phone] Notes/Report: Sodium 144 135-145 mmol/L Potassium 3.9 3.3-5.1 mmol/L Chloride 111 96-108 mmol/L Carbon Dioxide 26 22-29 mmol/L Anion Gap 11 12-20 Blood Urea Nitrogen 16 9-16 mg/dL Creatinine 1.04 0.5-1.4 mg/dL Estimated Glomerular Filt Rate > 60 NOTE: For -Lao individuals, multiply the result by 1.210. Chronic [...] Panel Reviewed date:04/05/2024 09:34:19 AM Interpretation: Performing Lab:[facility], [address] [place] [phone] Notes/Report: Triglycerides 73 <150 mg/dL Desirable Triglyceride: [...] Antigen Reviewed date:04/05/2024 09:34:19 AM Interpretation: Performing Lab:[facility], [address] [place] [phone] Notes/Report: Prostate Specific Antigen 3.68 <0.05-4.0 ng/mL PSA methodology: [employer] i Chemiluminescent Microparticle Immunoassay (CMIA) URINE DIP STICK Reviewed date:04/05/2024 09:17:12 AM Interpretation: Performing Lab: Notes/Report: SG 1.020 1.005 - 1.025 pH 5.0 5.0 - 9.0 KSENIA Negative Negative - NIT Negative Negative - PRO 100 Negative - Trace GLU Negative Negative - KET 5 Negative - UBG 0.2 0.1 - 1.8 COLBY Negative 0.2 - 1.3 BLD Negative Negative - Complete Blood Count Auto Di ff Reviewed date:11/01/2024 04:29:43 PM Interpretation: Performing Lab:[facility], [address] [place] [phone] Notes/Report: White Blood Count 7.3 4.8-10.8 X10*3/uL Red Blood Count 4.40 4.60-5.80 X10*6/uL Hemoglobin 13.7 14.0-18.0 g/dl Hematocrit 39.6 42.0-52.0 % Mean Corpuscular Volume 90.0 80.0-98.0 fL Mean Corpuscular Hemoglobin 31.1 27.0-33.0 pg Mean Corpuscular HGB Conc 34.6 31.0-36.0 g/dl Red Cell Distribution Width 13.1 11.0-16.0 % Platelet Count 244 160-400 X10*3/uL Mean Platelet Volume 10.4 9.4-12.4 fL Neutrophils Percent Auto 53.4 45-73 % Imm Gran Pct Auto 0.3 0.0-0.4 % Lymphocytes Percent Auto 35.0 20-40 % Monocytes Percent Auto 8.3 2-11 % Eosinophils Percent Auto 2.2 0-4 % Basophils Percent Auto 0.8 0-2 % NRBC Pct Auto 0.0 0.0-0.2 /100WBC Neutrophils Absolute Auto 3.9 2.0-8.3 x10*3/u L Imm Gran Abs Auto 0.02 0.00-0.03 X10*3/uL Lymphocytes Absolute Auto 2.6 1.2-4.9 X10*3/u L Monocytes Absolute Auto 0.6 0.1-1.2 X10*3/uL Eosinophils Absolute Auto 0.2 0.0-0.4 X10*3/u L Basophils Absolute Auto 0.1 0.0-0.2 X10*3/uL NRBC Abs Auto 0.000 0.0-0.012 X10*3/uL Comprehensive [place]. Panel Fa st Reviewed date:11/01/2024 04:29:43 PM Interpretation: Performing Lab:[facility], [address] [place] [phone] Notes/Report: Sodium 143 135-145 mmol/L Potassium 3.7 3.3-5.1 mmol/L Chloride 109 96-108 mmol/L Carbon Dioxide 27 22-29 mmol/L Anion Gap 11 12-20 Blood Urea Nitrogen 24 9-16 mg/dL Creatinine 1.02 0.5-1.4 mg/dL Estimated Glomerular Filt Rate > 60 Chronic Kidney Disease: Estimated GFR < 60 mL/min/1.73m2 Severe Kidney Disease: Estimated GFR < 15 mL/min/1.73m2 Glucose Fasting 97 60-99 mg/dL Calcium 9.4 8.4-10.2 mg/dL Bilirubin Total 0.8 0.0-1.0 mg/dL Aspartate Amino Transferase 22 5-37 U/L Alanine Aminotransferase 20 0-40 U/L Total Protein 7.1 6.5-8.0 g/dL Albumin Level 4.1 3.5-5.0 g/dL Alkaline Phosphatase 51 39-117 U/L Lipid Panel Reviewed date:11/01/2024 04:29:43 PM Interpretation: Performing Lab:[facility], [address] [place] [phone] Notes/Report: Triglycerides 87 <150 mg/dL Desirable Triglyceride: less than 150 mg/dL Borderline High Triglyceride 150-199 mg/dL High Triglyceride: 200-499 mg/dL Very High Triglyceride: greater than or equal to 5OO mg/dL Cholesterol 205 <200 mg/dL Desirable Cholesterol: less than 200 mg/dL Borderline High Cholesterol: 200-239 mg/dL High Cholesterol: greater than 239 mg/dL LDL Cholesterol Calculated 141 <100 mg/dL Desirable LDL: less than 100 mg/dL Near Optimal/Above Optimal LDL: 110-129 mg/dL Borderline High LDL: 130-159 mg/dL High LDL: 160-189 mg/dL Very High LDL: greater than or equal to 190 mg/dL HDL Cholesterol 47 >40 mg/dL Desirable HDL: greater than 40 mg/dL Note: This HDL assay may give artificially low results in patients with liver disease. XR lumbar spine 2-3V Reviewed date:12/02/2024 07:54:37 PM Interpretation: Performing Lab: Notes/Report: [address] [address] XRay Report Signed Patient: Jarett Maynard MR#: [id number] [birth year] : 1945 Acct:[id number] Age/Sex: 79 / M ADM Date: 11/16/24 Loc: [facility] Attending Dr: Zacarias Zurita MD Ordering Physician: Zacarias Zurita MD Date of Service: 11/16/24 Procedure(s): XR lumbar spine 2-3V Accession Number(s): [id number] cc: Zacarias Zurita MD EXAMINATION: XR LUMBOSACRAL SPINE CLINICAL INFORMATION: PAIN COMPARISON: None available. TECHNIQUE: Three views of the lumbosacral spine. FINDINGS: Multilevel endplate sclerosis, marginal osteophyte formation, decreased intervertebral disc height throughout the included axial skeleton. There is a grade 1 anterolisthesis L5-S1. There is a grade 1 retrolisthesis L4-5. There is a dextroconvex rotoscoliosis apex at L3-4. Spina bifida occulta S1. No acute cortical disruption or No lytic or blastic lesions. XR/XR lumbar spine 2-3V IMPRESSION: Multilevel thoracolumbar spondylosis. Dextroconvex rotoscoliosis. Grade 1 anterolisthesis L5-S1. Grade 1 retrolisthesis L4-5. Electronically signed by: Elias Daugherty MD 11/21/2024 07:19 AM EDT RP Dictated By: Elias Lane MD Signed By: <Electronically signed by Elias Munroe MD in OV> 11/21/24 0719 DD/ 1550 TD/TT: 11/16/24 1614 Transportation Engineering Technician: [place] [address] XRay Report Signed Patient: Sherron Maynard MR#: [id number] [birth year] : 1945 Acct:[id number] Age/Sex: 79 / M ADM Date: 11/16/24 Loc: HO.XRAY Attending Dr: Zacarias Zurita MD Ordering Physician: Zacarias Zurita MD Date of Service: 11/16/24 Procedure(s): XR lum bar spine 2-3V Accession Number(s): [id number] cc: Zacarias Zurita MD EXAMINATION: XR LUMBOSACRAL SPINE CLINICAL INFORMATION: PAIN COMPARISON: None available. TECHNIQUE: Three views of the lumbosacral spine. FINDINGS: Multilevel endplate sclerosis, marginal osteophyte formation, decreased intervertebral disc height throughout the included axial skeleton. There is a grade 1 anterolisthesis L5-S1. There is a grade 1 retrolisthesis L4-5. There is a dextrocon vex rotoscoliosis apex at L3-4. Spina bifida occulta S1. No acute cortical disruption or No lytic or blastic lesions. XR/XR lumbar spine 2-3V IMPRESSION: Multilevel thoracolumbar spondylosis. Dextroconvex rotoscoliosis. Grade 1 anterolisthe sis L5-S1. Grade 1 retrolisthes is L4-5. Electronically inderjit d by: Elias Daugherty MD 11/21/2024 07:19 AM EDT RP Dictated By: Elias Rico MD Signed By: <Electronically signed by Elias Munroe MD in OV> 11/21/24 0719 DD/ 1550 TD/TT: 11/16/24 1614 Transportation Engineering Technician: XR sacrum coccyx min 2V Reviewed date:12/02/2024 07:54:37 PM Interpretation: Performing Lab: Notes/Report: [address] [address] XRay Report Signed Patient: Jarett Maynard MR#: [id number] 78 : 1945 Acct:[id number] Age/Sex: 79 / M ADM Date: 11/16/24 Loc: HO.XRAY Attending Dr: Zacarias Zurita MD Ordering Physician: Zacarias Zurita MD Date of Service: 11/16/24 Procedure(s): XR sacrum coccyx min 2V Accession Number(s): [id number] cc: Zacarias Zurita MD EXAMINATION: XR SACRUM AND COCCYX CLINICAL INFORMATION: PAIN COMPARISON: Correlated to recent lumbar spine x-ray TECHNIQUE: 2 views of the sacrum and 2 views of the coccyx were obtained. FINDINGS: No acute cortical disruption. Spina bifida occulta S1. Multilevel spondylosis lower lumbar spine. Grade 1 anterolisthesis L5-S1. Degenerative changes in the symphysis pubis. XR/XR sacrum coccyx min 2V IMPRESSION: No acute fracture. Electronically signed by: Elias Daugherty MD 11/21/2024 07:20 AM EDT RP Dictated By: Elias Lane MD Signed By: <Electronically signed by Elias Munroe MD in OV> 11/21/24 0720 DD/ 1550 TD/TT: 11/16/24 161 Transportation Engineering Technician: [address] [address] XRay Report Signed Patient: Sherron Maynard MR#: [id number] 78 : 1945 Acct:[id number] Age/Sex: 79 / M ADM Date: 11/16/24 Loc: [facility] Attending Dr: Zacarias Zurita MD Ordering Physician: Zacarias Zurita MD Date of Service: 11/16/24 Procedure(s): XR sac rum coccyx min 2V Accession Number(s): [id number] cc: Zacarias Zurita MD EXAMINATION: XR SACRUM AND COCCYX CLINICAL INFORMATION: PAIN COMPARISON: Correlated to recent lumbar spine x-ray TECHNIQUE: 2 views of the sacru m and 2 views of the coccyx were obtained. FINDINGS: No acute cortical disruption. Spina bifida occulta S1. Multilevel spondylos is lower lumbar spine. Grade 1 anterolisthe sis L5-S1. Degenerative changes in the symphysis pubis. XR/XR sacrum coccyx min 2V IMPRESSION: No acute fracture. Electronically inderjit d by: Elias Daugherty MD 11/21/2024 07:20 AM EDT RP Dictated By: Elias Rico MD Signed By: <Electronically signed by Elias Munroe MD in OV> 11/21/24 0720 DD/ 1550 TD/TT: 11/16/24 1614 Transportation Engineering Technician: XR Knee Colby 4V Reviewed date:12/02/2024 07:54:37 PM Interpretation: Performing Lab: Notes/Report: [place] [address] XRay Report Signed Patient: Jarett Maynard MR#: [id number] [birth year] : 1945 Acct:[id number] Age/Sex: 79 / M ADM Date: 11/16/24 Loc: [facility] Attending Dr: Zacarias Zurita MD Ordering Physician: Zacarias Zurita MD Date of Service: 11/16/24 Procedure(s): XR Knee Col[place] 4V Accession Number(s): [id number] cc: Zacarias Zurita MD EXAMINATION: X-ray knee bilateral. CLINICAL INFORMATION: Pain TECHNIQUE: 3 views of the knees, bilaterally. COMPARISON: None FINDINGS: Joint space narrowing involving mostly the medial compartment of the right knee. Sclerosis and the articular surface of the medial tibial plateau, right knee. No acute cortical disruption. No gross malalignment. No lytic or blastic lesions. No suprapatellar bursa joint effusion. Vascular calcifications. XR/XR Knee Colby 4V IMPRESSION: Medial compartment osteoarthrosis, right knee. No acute fracture or dislocation. Atherosclerosis disease, peripheral. Electronically signed by: Elias Daugherty MD 11/21/2024 07:32 AM EDT RP Dictated By: Elias Lane MD Signed By: <Electronically signed by Elias Munroe MD in OV> 11/21/24 0732 DD/ 1550 TD/TT: 11/16/24 1614 Transportation Engineering Technician: [place] [address] XRay Report Signed Patient: Sherron Maynard MR#: [id number] 78 : 1945 Acct:[id number] Age/Sex: 79 / M ADM Date: 11/16/24 Loc: HO.XRAY Attending Dr: Zacarias Zurita MD Ordering Physician: Zacarias Zurita MD Date of Service: 11/16/24 Procedure(s): XR Kne e Colby 4V Accession Number(s): [id number] cc: Zacarias Zurita MD EXAMINATION: X-ray knee bilateral. CLINICAL INFORMATION: Pain TECHNIQUE: 3 views of the knees , bilaterally. COMPARISON: None FINDINGS: Joint space narrowin g involving mostly the medial compartment of the right knee. Sclerosi s and the articular surface of the medial tibial plateau, right knee. No acute cortical disruption. No gross malalignment. No lytic or blastic lesions. No suprapatellar bur sa joint effusion. Vascular calcifications. XR/XR Knee [place] 4V IMPRESSION: Medial compartment osteoarthrosis, right knee. No acute fracture or dislocation. Atherosclerosis disease, peripheral. Electronically inderjit d by: Elias Daugherty MD 11/21/2024 07:32 AM EDT RP Dictated By: Elias Rico MD Signed By: <Electronically signed by Elias Munroe MD in OV> 11/21/24 0732 DD/ 1550 TD/TT: 11/16/24 1614 Transportation Engineering Technician: Reason For Referral Reason Consult and Treat Diagnosis 1 Radicular pain of sa gloria (M54.18) Diagnosis 2 Numbness (R20.0) Referral Organization Zacarias Zurita III, MD Referring Provider First Name Zacarias Referring Provider Last Name Yudith Referring Provider Speciality Internal M edicine Referred Provider Neurology [facility] Referred Provider Specialty Neurology General Notes D, Radha 11/19/2024 11:09:54 AM > referral and progress note faxed, Kelly Monroe CMA 01/09/2025 10:41:07 AM >pt stated he went to [facility] for severe knee pain and the back pain has resolved and pt does not want to go to neurologist for sacrum pain at this time all sacrum pain resolved Referral Priority Routine Reason right medial knee pa in Diagnosis 1 Acute pain of right knee (M25.561) Referral Organization Zacarias Zurita III, MD Referring Provider First Name Zacarias Referring Provider Last Name Yudith Referring Provider Speciality Internal edicine Referred Provider [place]) Referred Provider Specialty Orthopedic [facility] General Notes D, Radha 12/03/2024 09:14:28 AM >Referral, cover sheet and Xr knee faxed., D, Radha 12/04/2024 09:39:38 AM > Patient was able to get an appointment for 12/05/24 @ 10:15am. [facility] is requesting a CD of the Xr [...] Provider Speciality Internal M edicine Referred Organization [facility] Referred Provider [facility] Referred Address [address] [place] [phone], Referred Provider Specialty Pain Medicin e General Notes Radha Valdez 12/03/2024 09:22:13 AM > Referral and Xr's faxed. to [facility] Referral Priority Routine Reason tremor and right arm weakness ? [...] 01/09 11:31:46 AM >called Dr Jacobson office [phone] made pt appt with Dr Jacobson for 03/07/2025 at 11am appt information mailed and called to pt, Kelly Monroe CMA 01/16/2025 01:21:23 PM >ref/demo/progress note faxed to Dr Jacobson office pt has appt on 03/07/2025 at 11:00am Referral Priority Routine Referral Appointment Date 03/07/2025 Medications Medication SIG (Take, Route, Frequency, Duration) [...] Orally O nce a day 12/12/2024 Active Immunizations Vaccine Route Administration Date Status [...] Problem Status W/U Status Risk Notes Problem 445279755 Overweight (E66.3) Active confirmed He is slightly over weight and is trying to consume a healthy diet and lose weight. I recommended he try and stabilize his weight at this point without weight gain. Problem Hypertension (18323936) Hypertension (I10) Active confirmed His blood pressure today is 110/70. No change in his regimen was needed. Problem BPH (benign prostatic hyperplasia) (N40.0) Active confirmed He continues to rise from sleep once or twice a night to urinate depending upon fluid intake. We reviewed the lifestyle modifications he can make to reduce nocturia. Problem [id number] History of skin cancer (Z85.828) Active confirmed No new lesions were noted today. Problem 0732385150 Acute pain of right knee (M25.561) Active confirmed Problem 027583459 Right inguinal hernia (K40.90) Active confirmed The hernia has been repaired. He will call me if anythingThe chest infection or bleeding occurs. Problem 266726571 Acute midline low back pain with right-sided sciatica (M54.41) Active confirmed The back pain has completely resolved. Problem 306993261 Right anterior knee pain (M25.561) Active confirmed His pain is much improved and he is no longer taking pain medication. 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 Problem 026428742 Basal cell carcinoma (BCC), unspecified site (C44.91) Active confirmed No new skin cancers were noticed today. Vital Signs Heart Rate 52 /min 02/20/2025 Temperature 97.9 degrees Fahrenheit 02/20/2025 Blood pressure diastolic 70 mm Hg 02/20/2025 Height 65 in 02/20/2025 Blood pressure systolic 110 mm Hg 02/20/2025 Weight 169 lbs 02/20/2025 BMI 28.12 kg/m2 02/20/2025 Encounters Encounter Location Date Provider Diagnosis Zacarias Zurita III, MD [address] [place] [address] [place] [address] 04/05/2024 Zacarias Zurita Hypertension I10 ; Right inguinal hernia K40.90 ; Basal cell carcinoma (BCC), unspecified site C44.91 ; BPH (benign prostatic hyperplasia) N40.0 and Overweight E66.3 Zacarias Zurita III, MD [address] [place] [address] [place] [address] 06/28/2024 Zacarias Zurita Hypertension I10 ; Overweight E66.3 ; Right inguinal hernia K40.90 and History of skin cancer Z85.828 Zacarias Zurita III, MD [address] [place] [address] [place] [address] 11/01/2024 Zacarias Zurita Hypertension I10 ; Right inguinal hernia K40.90 ; BPH (benign prostatic hyperplasia) N40.0 ; History of skin cancer Z85.828 and Overweight E66.3 Zacarias Zurita III, MD [address] [place] [address] [place] [address] 11/16/2024 Zacarias Zurita Right anterior knee pain M25.561 ; Acute midline low back pain with right-sided sciatica M54.41 ; Right inguinal hernia K40.90 ; Hypertension I10 ; BPH (benign prostatic hyperplasia) N40.0 and Overweight E66.3 Zacarias Zurita III, MD [address] [place] [address] [place] [address] 11/28/2024 Zacarias Zurita Acute midline low ba ck pain with right-sided sciatica M54.41 ; Right anterior knee pain M25.561 ; Overweight E66.3 ; Basal cell carcinoma (BCC), unspecified site C44.91 ; Right inguinal hernia K40.90 and BPH (benign prostatic hyperplasia) N40.0 Zacarias Zurita III, MD [address] [place] [address] [place] [address] 12/12/2024 Zacarias Zurita Right anterior knee pain M25.561 ; Overweight E66.3 ; Hypertension I10 ; BPH (benign prostatic hyperplasia) N40.0 and Right inguinal hernia K40.90 Zacarias Zurita III, MD [address] [place] [address] [place] [address] 01/09/2025 Zacarias Zurita Right anterior knee pain M25.561 ; Hypertension I10 ; Right inguinal hernia K40.90 ; BPH (benign prostatic hyperplasia) N40.0 and Overweight E66.3 Zacarias Zurita III, MD [address] [place] [address] [address] [phone] 02/20/2025 Zacarias Zurita Right anterior knee pain M25.561 ; Hypertension I10 ; BPH (benign prostatic hyperplasia) N40.0 ; Overweight E66.3 ; Right inguinal hernia K40.90 and History of skin cancer Z85.828 Zacarias Zurita III, MD [address] [place] [address] [place] [address] 06/28/2024 Zacarias Zurita Assessments Encounter Date Diagnosis [...] implemented if it remains at this level. 11/01/2024 Hypertension (ICD-10 - I10) His blood pressure is stable at 138/85 and he has been compliant with his medications. He will return in the near future to recheck the blood pressure. Treatment will be implemented if it remains at this level. 11/01/2024 Right inguinal hernia (ICD-10 - K40.90) The hernia has been repaired. He will call me if anythingThe chest infection or bleeding occurs. 11/16/2024 Acute midline low back pain with right-sided sciatica (ICD-10 - M54.41) We will begin with images of lumbar spine. She will take a combination of acetaminophen and ibuprofen. If necessary will be given gabapentin dexamethasone. 11/16/2024 Right anterior knee pain (ICD-10 - M25.561) This began with the back pain. X-rays of the knee have been ordered. Is no effusion. There is a sciatic component to the back pain but the knee itself appears to be a source of discomfort. 11/28/2024 Acute midline low back pain with right-sided sciatica (ICD-10 - M54.41) The back pain has completely resolved. 11/28/2024 Right anterior knee pain (ICD-10 - M25.561) This began with the back pain. X-rays of the knee have been ordered. Is no effusion. There is a sciatic component to the back pain but the knee itself appears to be a source of discomfort. 12/12/2024 Overweight (ICD-10 - E66.3) He has lost 5 pounds now weighing 173 pounds. His body mass index is 28.79. We reviewed the elements of a weight loss diet. I recommended weight loss at a rate of one half of a pound per week. 12/12/2024 Right anterior knee pain (ICD-10 - M25.561) He has had some relief with the gabapentin and we will try a higher dose. An injection in the knee at [facility] 1 or 2 days of relief only. 01/09/2025 Hypertension (ICD-10 - I10) His blood pressure is stable at 112/60 and he has been compliant with his medications. He will return in the near future to recheck the blood pressure. Treatment will be implemented if it remains at this level. 01/09/2025 Right anterior knee pain (ICD-10 - M25.561) He has had some relief with the gabapentin and we will try a higher dose. An injection in the knee at [facility] has markedly improved the pain and he is delighted. 02/20/2025 Hypertension (ICD-10 - I10) His blood pressure today is 110/70. No change in his regimen was needed. 02/20/2025 Right anterior knee pain (ICD-10 - M25.561) His pain is much improved and he is no longer taking pain medication. 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 04/05/2024 Basal cell carcinoma (BCC), unspecified site (ICD-10 - C44.91) No new skin cancers were noticed today. 06/28/2024 Right inguinal hernia (ICD-10 - K40.90) The hernia has been repaired. He will call me if anythingThe chest infection or bleeding occurs. 11/01/2024 BPH (benign prostatic hyperplasia) (ICD-10 - N40.0) He has been rising from sleep once or twice a night to urinate. We have discussed lifestyle modification as a way to reduce nocturia. He was encouraged to resume the hydrochlorothiazide. 11/16/2024 Right inguinal hernia (ICD-10 - K40.90) The hernia has been repaired. He will call me if anythingThe chest infection or bleeding occurs. 11/28/2024 Overweight (ICD-10 - E66.3) He has [...] anythingThe chest infection or bleeding occurs. 02/20/2025 BPH (benign prostatic hyperplasia) (ICD-10 - N40.0) He continues to rise from sleep once or twice a night to urinate depending upon fluid intake. We reviewed the lifestyle modifications he can make to reduce nocturia. 04/05/2024 BPH (benign prostatic hyperplasia) (ICD-10 - N40.0) He has been rising from sleep once or twice a night to urinate. We have discussed lifestyle modification as a way to reduce nocturia. He was encouraged to resume the hydrochlorothiazide. 06/28/2024 History of skin cancer (ICD-10 - Z85.828) No new lesions were noted today. 11/01/2024 History of skin cancer (ICD-10 - Z85.828) No new lesions were noted today. 11/16/2024 Hypertension (ICD-10 - I10) His blood pressure is stable at 138/85 and he has been compliant with his medications. He will return in the near future to recheck the blood pressure. Treatment will be implemented if it remains at this level. 11/28/2024 Basal cell carcinoma (BCC), unspecified site (ICD-10 - C44.91) No new skin cancers were noticed today. 12/12/2024 BPH (benign prostatic hyperplasia) (ICD-10 - N40.0) He has been rising from sleep 3 or 4 times a night to urinate. We have discussed lifestyle modification as a way to reduce nocturia. I have discontinued the hydrochlorothiazide and presscribed tamsulosin 0.4 mg daily. His blood pressure and nocturia will be carefully evaluated frequently. 01/09/2025 BPH (benign prostatic hyperplasia) (ICD-10 - N40.0) He has been rising from sleep 3 or 4 times a night to urinate. We have discussed lifestyle modification as a way to reduce nocturia. I have discontinued the hydrochlorothiazide and presscribed tamsulosin 0.4 mg daily. His blood pressure and nocturia will be carefully evaluated frequently. 02/20/2025 Overweight (ICD-10 - E66.3) He is slightly over weight and is trying to consume a healthy diet and lose weight. I recommended he try and stabilize his weight at this point without weight gain. 04/05/2024 Overweight (ICD-10 - E66.3) He has lost several pounds in his body mass index is now 29. We reviewed his weight loss strategy diet and nutrition. He will continue to lose weight at a rate of one half of a pound per week. 11/01/2024 Overweight (ICD-10 - E66.3) He has lost 5 pounds now weighing 173 pounds. His body mass index is 28.79. We reviewed the elements of a weight loss diet. I recommended weight loss at a rate of one half of a pound per week. 11/16/2024 BPH (benign prostatic hyperplasia) (ICD-10 - N40.0) He has been rising from sleep once or twice a night to urinate. We have discussed lifestyle modification as a way to reduce nocturia. He was encouraged to resume the hydrochlorothiazide. 11/28/2024 Right inguinal hernia (ICD-10 - K40.90) The hernia has been repaired. He will call me if anythingThe chest infection or bleeding occurs. 12/12/2024 Right inguinal hernia (ICD-10 - K40.90) The hernia has been repaired. He will call me if anythingThe chest infection or bleeding occurs. 01/09/2025 Overweight (ICD-10 - E66.3) He has lost 5 pounds now weighing 173 pounds. His body mass index is 28.79. We reviewed the elements of a weight loss diet. I recommended weight loss at a rate of one half of a pound per week. 02/20/2025 Right inguinal hernia (ICD-10 - K40.90) The hernia has been repaired. He will call me if anythingThe chest infection or bleeding occurs. 11/16/2024 Overweight (ICD-10 - E66.3) He has lost 5 pounds now weighing 173 pounds. His body mass index is 28.79. We reviewed the elements of a weight loss diet. I recommended weight loss at a rate of one half of a pound per week. 11/28/2024 BPH (benign prostatic hyperplasia) (ICD-10 - N40.0) He has been rising from sleep once or twice a night to urinate. We have discussed lifestyle modification as a way to reduce nocturia. He was encouraged to resume the hydrochlorothiazide. 02/20/2025 History of skin cancer (ICD-10 - Z85.828) No new lesions were noted today. Plan Of Treatment Pending Test Test Name Order Date PROFILE, FASTING (COMPREHENSIVE METABOLI C) 10/26/2023 PROFILE, FASTING (COMPREHENSIVE METABOLI C) 08/20/2022 PROFILE, FASTING (COMPREHENSIVE METABOLI C) 04/23/2021 PROFILE, FASTING (COMPREHENSIVE METABOLI C) 02/20/2025 PROFILE, FASTING (COMPREHENSIVE METABOLI C) 06/28/2024 LIPID PANEL 08/20/2022 LIPID PANEL 04/23/2021 PSA, TOTAL 10/26/2023 PSA, TOTAL 08/20/2022 PSA, TOTAL 02/20/2025 PSA, TOTAL 04/23/2021 CBC w DIFF 08/20/2022 CBC w DIFF 02/20/2025 CBC w DIFF 04/23/2021 Echocardiogram 04/22/2023 CBC WITH AUTO DIFF 10/26/2023 CBC WITH AUTO DIFF 06/28/2024 Lipid Panel 06/28/2024 Lipid Panel 10/26/2023 Lipid Panel 02/20/2025 Next Appt Details Provider Name:Zacarias Zurita, 04/09/2025 09:30:00 AM, [address] [place] [address] [address], [address], [place], [address], Insurance Providers Payer Name Payer Address Payer Phone Subscriber Number Group Number Insured Name Patient Relationship to Insured Coverage Start Date Coverage End Date MEDICARE N[place] [address] [place] [phone] [id number] Jarett Maynard Self - patient is the [...]
--- OUTSIDE RECORDS SUMMARY | 2025-03-23 10:23 | XMS_ITS | Clinical Summary ---
Author Organization [facility] Address [address] [address] Phone Care Team Providers Care Software Developer Manager Name Role Phone Bijan Holland MD Primary Care Provider [phone] Medications triamcinolone acetonide 0.025 % cream 1 [...] Medical Devices Not on file Insurance [address] [place], [place] [address] [place], [place] [address] [place], [place] [id number] O O Care Teams Software Developer Manager Relationship Specialty Start Date End Date Bijan Holland MD PCP - General 07/28/17 Additional Source Comments The information contained in this document represents components of the legal health record. It is not the complete legal health record.[facility]
--- OUTSIDE RECORDS SUMMARY | 2025-03-23 10:24 | XMS_ITS | Patient Health Record ---
Author Organization [facility] Address [address] [place] [address] Care Team Providers Care Canine Service Instructor Trainer Name Role Phone Zacarias Zurita MD Primary Care Provider Emigdio Jansen Jr Young Unavailable Allergies No Known Allergies Reason For Referral [...] Problem Status W/U Status Risk Notes Problem 521515012 Colon cancer screening (Z12.11) Active confirmed Problem 288508772 Encounter for other preprocedural examination (Z01.818) Active confirmed Problem [id number] shelter current use of diuretic (Z79.899) Active confirmed Plan Of Treatment Future Test Test Name Order Date COLONOSCOPY 07/30/2021 Insurance Providers Payer Name Payer Address Payer Phone Subscriber Number Group Number Insured Name Patient Relationship to Insured Coverage Start Date Coverage End Date [facility] [address] [place] [facility] [place] [phone] [id number] JANIS LEROY Self - patient is the insured Medical (General) History Medical History History ICD Code hypertension Skin cancer/lesions right inguinal hernia Surgical History Surgery Date(Month/Year) excision of skin cancer from [facility] 2017
== END 2025-03-23 10:16 | disposition home or self-care (01) ==
LOC: HO.MRI 10:15
PROVIDERS: PCP Internal Medicine Medical Oncology; Visit Provider Psychiatry & Neurology Neurology
DX: G20.A1 Parkinson's disease without dyskinesia, without mention of fluctuations (principal)
CPT/HCPCS: 70551

== ENCOUNTER 2025-04-23 12:18 | Outpatient (AMB) | payer MEDICARE, SELFPAY ==
--- OUTSIDE RECORDS SUMMARY | 2024-12-12 07:15 | XMS_ITS ---
Author Organization Zacarias Zurita III, MD Address [address] [place] [address] Care Team Providers Care Pr Specialist Name Role Phone Dr. Zacarias Zurita III Primary Care Provider [phone] Allergies Allergen (clinical drug ingredient) Drug/Non Drug [...] Date Provider Diagnosis Zacarias Zurita III, MD [address] [place] [address] [address] [place], [place] [address] 12/12/2024 Zacarias Zurita Right anterior knee pain [...] dose. An injection in the knee at [facility] 1 or 2 days [...] Up: 4 Weeks, Reason: OV Provider Name:Zacarias Zurita , 07/11/2025 09:00:00 AM, [address] [facility], [place], [address], Provider Name:Zacarias Zurita , 04/10/2026 09:30:00 AM, [address] [facility] [address], [place], [address], Progress Notes * Jarett MAYNARDDOB: 6 (79 yo M)Acc No.[id number]:12/12/2024 Progress Notes Patient: Jarett FELIZ Provider: Che Zurita MD :1945 A ge:79 Y S ex:Male Date:12/12/2024 [facility] Subjective: * Chief Complaints: * R ight knee painOsteoarthritis right kneeHypertensionBenign prostatic hypertrophy * HPI: C OVID-19 Screening: Naveen garcia returns for the pain in his right knee. 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 If his right knee hurts while using the accelerator and break. He had an injection in his right knee at [facility] a week ago. He did [...] enies. * Medical History: * Surgical History: Venus xcision of skin cancer from scalp 2017Skin [...] dditional Findings: Tobacco Non-User A ggressive non-smoker Naveen garcia was born in [place]. He has been to [employer] for 6 years. 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 He [...] mg/dL) 40 (Ref Range: mg/dL) * Lab:[facility] [place]. Pane l Fast * Collection Date 10/25/2024 [...] dose. An injection in the knee at [facility] 1 or 2 days [...] true * Provider: Che Zurita MD Date: 12/12/2024 Generated for Reilly dumas/Nya/Gelaitting on: 04/23/2025 01:23 PM EDT History and Physical Notes * HPI [...]
--- OUTSIDE RECORDS SUMMARY | 2025-01-09 06:15 | XMS_ITS ---
Author Organization Zacarias Zurita III, MD Address [address] [place] [address] Care Team Providers Care Broodmare Barn Groom Name Role Phone Dr. Zacarias Zurita III Primary Care Provider Allergies Allergen (clinical drug [...] 01/09 11:31:46 AM >called Dr Jacobson office [phone] made pt appt with Dr Jacobson for 03/07/2025 at 11am appt information mailed and called to pt, Kelly Monroe CMA 01/16/2025 01:21:23 PM >ref/demo/progress note faxed [...] Date Provider Diagnosis Zacarias Zurita III, MD [address] [place] [address] [place] [address] 01/09/2025 Zacarias Zurita Right anterior knee pain [...] dose. An injection in the knee at [facility] has markedly improved the pain [...] Weeks, Reason: ov no tests Provider Name:Zacarias Zurita , 07/11/2025 09:00:00 AM, [address] [place] [address] [address], [place], [address], Provider Name:Zacarias Zurita , 04/10/2026 09:30:00 AM, [address] [place] [address] [address], [place], [address], Progress Notes * Jarett MAYNARDDOB: 6 (79 yo M)Acc No.[id number]:01/09/2025 Progress Notes Patient: Jarett FELIZ Joyce Provider: Che Zurita MD :1945 A ge:79 Y S ex:Male Date:01/09/2025 [facility] Subjective: * Chief Complaints: * R ight knee painHypertensionBenign prostatic hypertrophy * HPI: C OVID-19 Screening: 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 He has recently had severe right knee pain make it very difficult. He has been to [facility] and had an injection in [...] History: T obacco Use: T obacco Use/Smoking Lissy xie is a n onsmoker A dditional Findings: Tobacco Non-User A ggressive non-smoker Naveen garcia was born in [place]. He has been to [facility] for 6 years. 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 An injection in the knee at [facility] has markedly improved the pain [...] true * Provider: Che Zurita MD Date: 01/09/2025 Generated for Printi ng/Fasyg/eTransmitting on: 0 04/23/2025 01:22 PM EDT History and Physical Notes * [...] Date Referring Provider Referred Provider Not es 01/09/2025 Zacarias Zurita Muhammad tremor and right arm weakness ? new onset parkinson's disease
--- OUTSIDE RECORDS SUMMARY | 2025-01-24 08:30 | XMS_ITS ---
Author Organization Zacarias Zurita III, MD Address [address] [address] Care Team Providers Care Manager Operations Research Name Role Phone Dr. Zacarias Zurita III Primary Care Provider REASON FOR VISIT follow up Social History Sex Assigned At : Social History Observation Description Sex Assigned At Male Encounters Encounter Location Date Provider Diagnosis Zacarias Zurita III, MD [address] [place] [address] [place] [address] 01/24/2025 Zacarias Zurita Plan Of Treatment Next Appt Details Provider Name:Zacarias Zurita , 07/11/2025 09:00:00 AM, [address] [place] [address] [place], [address], Provider Name:Zacarias Zurita , 04/10/2026 09:30:00 AM, [address] [place] [address] [place], [address], Progress Notes * Jarett MAYNARDDOB: [birth year] (79 yo M)Acc No.[id number]:01/24/2025 Progress Notes Patient: Jarett FELIZ Provider: Che Zurita MD :1945 A ge:79 Y S ex:Male Date:01/24/2025 Address:[address] [place] [address] [address] [id number] Subjective: * Chief Complaints: * 1 . Follow up. * Medical History: Objective: * Vitals: Assessment: Plan: * Treatment: * Images: * The named appointment provid er may or may not be the originator of this progress note, and it is not deemed complete until electronically signed by the appointment provider. Sign off status: Pending * Provider: Che Zurita MD Date: 0 01/24/2025 Generated for Reilly dumas/Nya/Lynn on: 0 04/23/2025 01:23 PM EDT
--- OUTSIDE RECORDS SUMMARY | 2025-02-20 05:45 | XMS_ITS ---
Author Organization Zacarias Zurita III, MD Address [address] [place] [address] Care Team Providers Care Apprentice Pattern Maker Name Role Phone Dr. Zacarias Zurita III Primary Care Provider Allergies Allergen (clinical drug ingredient) Drug/Non Drug Allergy documented on EMR Reaction Allergy Type Onset Date Status No Known Drug Allergy Unknown Drug Allergy Active REASON FOR VISIT Overweigh, Resolving right knee pain, Benign prostatic hypertrophy, Right inguinal hernia Medications Medication SIG (Take, Route, Frequency, Duration) Notes Start Date End Date Status Tylenol Active Gabapentin 100 MG 1 capsule at bedtime Orally three times a day 11/28/2024 Active Norvasc 10 MG TAKE ONE TABLET BY M OUTH EVERY DAY Active hydroCHLOROthiazide 12.5 MG 1 capsule in [...] Tobacco Non-User Aggressive non-smoker Vital Signs Temperature 97.9 degrees Fahrenheit 02/21/20 25 Blood pressure systolic 110 mm Hg 02/21/20 25 Blood pressure diastolic 70 mm Hg 025 Heart Rate 52 /min 02/20/2025 Height 65 in 02/20/2025 Weight 169 lbs 02/20/2025 BMI 28.12 kg/m2 02/20/2025 Encounters Encounter Location Date Provider Diagnosis Zacarias Zurita III, MD [address] [place] [address] [place] [address] 02/20/2025 Zacarias Zurita Right anterior knee pain M25.561 ; Hypertension I10 ; BPH (benign prostatic hyperplasia) N40.0 ; Overweight E66.3 ; Right inguinal hernia K40.90 and History of skin cancer Z85.828 Assessments Encounter Date Diagnosis (ICD Code) Assessment Notes Treatment Notes Treatment Clinical Notes 02/20/2025 Right anterior knee pain (ICD-10 - M25.561) His pain is much improved and he is no longer taking pain medication. 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 02/20/2025 Hypertension (ICD-10 - I10) His blood pressure today is 110/70. No change in his regimen was needed. 02/20/2025 BPH (benign prostatic hyperplasia) (ICD-10 - N40.0) He continues to rise from sleep once or twice a night to urinate depending upon fluid intake. We reviewed the lifestyle modifications he can make to reduce nocturia. 02/20/2025 Overweight (ICD-10 - E66.3) He is slightly over weight and is trying to consume a healthy diet and lose weight. I recommended he try and stabilize his weight at this point without weight gain. 02/20/2025 Right inguinal hernia (ICD-10 - K40.90) The hernia has been repaired. He will call me if anythingThe chest infection or bleeding occurs. 02/20/2025 History of skin cancer (ICD-10 - Z85.828) No new lesions were noted today. Plan Of Treatment Medication Medication Name Sig Start Date Stop Date Notes Tylenol Gabapentin 100 MG 1 capsule at bedtime Orally three times a day 11/28/2024 Norvasc 10 MG TAKE ONE TABLET BY M OUTH EVERY DAY hydroCHLOROthiazide 12.5 MG 1 capsule in the morning Orally Once a day Tamsulosin HCl 0.4 MG 1 capsule Orally Once a day 12/13/19 25 Pending Test Test Name Order Date PROFILE, FASTING (COMPREHENSIVE METABOLI C) 02/20/2025 PSA, TOTAL 02/20/2025 CBC w DIFF 02/20/2025 Lipid Panel 02/20/2025 Next Appt Details Follow Up: as scheduled, [place] son: annual exam review labs Provider Name:Zacarias Zurita , 07/11/2025 09:00:00 AM, [address] [facility] [address], [place], [address], Provider Name:Zacarias Zurita , 04/10/2026 09:30:00 AM, [address] [facility] [address], [place], [address], Progress Notes * Jarett MAYNARDDOB: 6 (79 yo M)Acc No.[id number]:02/20/2025 Progress Notes Patient: Jarett FELIZ Provider: Che Zurita MD :1945 A ge:79 Y S ex:Male Date:02/20/2025 Address:[address] [place] [address] [id number] Subjective: * Chief Complaints: * O verweighResolving right knee painBenign prostatic hypertrophyRight inguinal hernia * HPI: C OVID-19 Screening: Naveen garcia returns for medical management. He has had significant pain in his right knee which is now much better now that he has stopped driving the truck. He retired January 22, 2025. Although he says he has no sense of purpose now the right knee is feeling much improved. 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 His blood pressure was stable today.No new problems were detected today. Is going to call me if he becomes depressed otherwise I'm going to check him back in 8 weeks. Questions H ave you had any new onset fever, chills, cough, congestion, sore throat, shortness of breath, muscle aches? N o * ROS: G eneral/Constitutional: pain o nly normal aches and pains. C hills d enies.?Fatigue a dmits. F ever d enies. E NT: Decreased hearing m ild. R espiratory: Cough d enies. C ardiovascular: [...] d enies. P ainful joints R ight knee pain is improved. S ciatica d enies. W eakness d enies. S kin: Itching d enies. R edgardo d enies. S kin lesion(s)?denies. N eurologic: Difficulty speaking d enies. D izziness d enies.?Headache d enies. L ow back pain d enies. P sychiatric: Depressed mood d enies. * Medical History: * Surgical History: Radha xcision of skin cancer from scalp 2017Skin [...] ggressive non-smoker H radha was born in [place]. He has been to [facility] for 6 years. 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 He has no children.He lives with his at home. He retired January 22, 2025. * Medications: T akingNorvasc 10 MG Tablet TAKE ONE TABLET BY MOUTH EVERY DAY Gabapentin 100 MG Capsule 1 capsule at bedtime Orally three times a day Tamsulosin HCl 0.4 MG Capsule 1 capsule Orally Once a day hydroCHLOROthiazide 12.5 MG Capsule 1 capsule in the morning Orally Once a day Taking Norvasc 10 MG Tablet TAKE ONE TABLET BY MOUTH EVERY DAY Taking Gabapentin 100 MG Capsule 1 capsule at bedtime Orally three times a day Taking Tamsulosin HCl 0.4 MG Capsule 1 capsule Orally Once a day Taking hydroCHLOROthiazide 12.5 MG Capsule 1 capsule in the morning Orally Once a day Not-Taking/PRNTylenol Medication List reviewed and reconciled with the patientNot-Taking/PRN Tylenol Medication List reviewed and reconciled with the patient * Allergies: N o Known Drug Allergyno[Allergies Verified] Objective: * Vitals: H t: 65, Wt:169, BMI:28.12, BP:110/70, HR:52, Temp:97.9, Wt-k.66. * Examination: G eneral Examination: GENERAL APPEARANCE: p leasant, well nourished, well developed, in no acute distress, calm and relaxed: overweight: elderly man. HEAD: a traumatic, normocephalic. EYES: [...] sounds normal, no ascites, no organomegaly, no mass: overweight. RECTAL EXAM: n ot examined. MUSCULOSKELETAL: e xtremities unremarkable, no clubbing, cyanosis or edema, Less pain to range of motion right knee. PERIPHERAL PULSES: n ormal. NEUROLOGIC: a lert and oriented, cranial nerves 2-12 grossly intact, deep tendon reflexes 2+ symmetrical, motor strength normal upper and lower extremities, sensory exam intact, Speech fluent gait intact unremarkable for the age. PSYCH: a lert, oriented. Assessment: * Assessment: 1. R ight anterior knee pain - M25.561 (Primary) N otes :His pain is much improved and he is no longer taking pain medication. 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 2 . H ypertension - I10 N otes :His blood pressure today is 110/70. No change in his regimen was needed. 3 . B PH (benign prostatic hyperplasia) - N40.0 N otes :He continues to rise from sleep once or twice a night to urinate depending upon fluid intake. We reviewed the lifestyle modifications he can make to reduce nocturia. 4 . O verweight - E66.3 N otes :He is slightly over weight and is trying to consume a healthy diet and lose weight. I recommended he try and stabilize his weight at this point without weight gain. 5 . R ight inguinal hernia - K40.90 N otes :The hernia has been repaired. He will call me if anythingThe chest infection or bleeding occurs. 6 . H istory of skin cancer - Z85.828 N otes :No new lesions were noted today. Plan: * Treatment: 2. H ypertension L AB: PROFILE, FASTING (COMPREHENSIVE METABOLIC) L AB: PSA, TOTAL L AB: CBC w DIFF L AB: Lipid Panel 3. B PH (benign prostatic hyperplasia) L AB: PROFILE, FASTING (COMPREHENSIVE METABOLIC) L AB: PSA, TOTAL L AB: CBC w DIFF L AB: Lipid Panel 4. O verweight L AB: PROFILE, FASTING (COMPREHENSIVE METABOLIC) L AB: PSA, TOTAL L AB: CBC w DIFF L AB: Lipid Panel 5. O thers Continue Norvasc Tablet, 10 MG, TAKE ONE TABLET BY MOUTH EVERY DAY; C ontinue Tylenol; C ontinue Gabapentin Capsule, 100 MG, 1 capsule at bedtime, Orally, three times a day; C ontinue Tamsulosin HCl Capsule, 0.4 MG, 1 capsule, Orally, Once a day. * Procedure Codes: * Preventive Medicine: Counseling: C are goal follow-up plan: Counseling for abnormal BMI given Y es Above Normal BMI Follow-up D ietary management education, guidance, and counseling * Follow Up: a s scheduled (Reason: annual exam review labs) * Images: * Sign off status: Completed true * Provider: Che Zurita MD Date: 02/20/2025 Generated for Reilly dumas/Nya/Gelaitting on: 04/23/2025 01:23 [...] developed, in no acute distress, calm and relaxed: overweight: elderly man HEAD: atraumatic, normocep halic EYES: eomi, perrla, anicte eric, conjugate EARS: normal NOSE: septum intact NECK/THYROID: no jugular venous di stention, no carotid bruit, thyroid normal HEART: no clicks, gallops, murmurs, or rubs, regular rhythm, S1, S2 normal, no s3, or vascular bruits LUNGS: clear to auscultatio n ABDOMEN: bowel sounds normal, no ascites, no organomegaly, no mass: overweight NEUROLOGIC: alert and oriented, cranial nerves 2-12 grossly intact, deep tendon reflexes 2+ symmetrical, motor strength normal upper and lower extremities, sensory exam intact, Speech fluent gait intact unremarkable for the age SKIN: no suspicious lesion s, anicteric PERIPHERAL PULSES: normal BREASTS: no masses palpable b ilaterally MUSCULOSKELETAL: extremities unremark able, no clubbing, cyanosis or edema, Less pain to range of motion right knee LYMPH NODES: no enlarged lymph no roberto,spleen normal RECTAL EXAM: not examined PSYCH: alert, oriented ORAL CAVITY: normal, unremarkable
--- OUTSIDE RECORDS SUMMARY | 2025-04-09 05:30 | XMS_ITS ---
Author Organization Zacarias Zurita III, MD Address [address] [place] [address] Care Team Providers Care Packer Insulation Name Role Phone Dr. Zacarias Zurita III Primary Care Provider Allergies Allergen (clinical drug ingredient) Drug/Non Drug Allergy documented on EMR Reaction Allergy Type Onset Date Status No Known Drug Allergy Unknown Drug Allergy Active No Known Food Allergy Unknown Drug Allergy Active REASON FOR VISIT Annual Exam Medications Medication SIG (Take, Route, Frequency, Duration) Notes Start Date End Date Status Carbidopa-Levodopa 25-100 MG 1 tablet as needed Orally Two times a Week Active Norvasc 10 MG TAKE ONE TABLET BY M OUTH EVERY DAY Active Social History Tobacco Use: Social History Observation Description Date Details (start date - stop date) Never Smoker NA - NA Sex Assigned At : Social History Observation Description Sex Assigned At Male Tobacco Use/Smoking Question Answer Notes Patient is a nonsmoker Additional Findings: Tobacco Non-User Aggressive non-smoker Problems Problem Type SNOMED Code ICD Code Onset Dates Problem Status W/U Status Risk Notes Problem [id number] Primary Parkinson's disease (G20.A1) Active confirmed Problem 367737018 Right anterior knee pain (M25.561) Active confirmed His pain is much improved and he is no longer taking pain medication. 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 Vital Signs Temperature 98.0 degrees Fahrenheit 04/09/20 25 Blood pressure systolic 134 mm Hg 04/09/20 25 Blood pressure diastolic 68 mm Hg 025 Heart Rate 49 /min 04/09/2025 Height 65 in 04/09/2025 Weight 170 lbs 04/09/2025 BMI 28.29 kg/m2 04/09/2025 Encounters Encounter Location Date Provider Diagnosis Zacarias Zurita III, MD [address] [place] [address] [place] [address] 04/09/2025 Zacarias Zurita Right anterior knee pain M25.561 ; Hypertension I10 ; Overweight E66.3 ; Basal cell carcinoma (BCC), unspecified site C44.91 ; BPH (benign prostatic hyperplasia) N40.0 and Primary Parkinson's disease G20.A1 Assessments Encounter Date Diagnosis (ICD Code) Assessment Notes Treatment Notes Treatment Clinical Notes 04/09/2025 Right anterior knee pain (ICD-10 - M25.561) His pain is much improved and he is no longer taking pain medication. 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 04/09/2025 Hypertension (ICD-10 - I10) His blood pressure today is 110/70. No change in his regimen was needed. 04/09/2025 Overweight (ICD-10 - E66.3) He is slightly over weight and is trying to consume a healthy diet and lose weight. I recommended he try and stabilize his weight at this point without weight gain. 04/09/2025 Basal cell carcinoma (BCC), unspecified site (ICD-10 - C44.91) No new skin cancers were noticed today. 04/09/2025 BPH (benign prostatic hyperplasia) (ICD-10 - N40.0) He continues to rise from sleep once or twice a night to urinate depending upon fluid intake. We reviewed the lifestyle modifications he can make to reduce nocturia. 04/09/2025 Primary Parkinson's disease (ICD-10 - G20.A1) Plan Of Treatment Medication Medication Name Sig Start Date Stop Date Notes Carbidopa-Levodopa 25-100 MG 1 tablet as needed Orally Two times a Week Norvasc 10 MG TAKE ONE TABLET BY M OUTH EVERY DAY Next Appt Details Follow Up: 3 Months, Reason: OV Provider Name:Zacarias Zurita , 07/11/2025 09:00:00 AM, [address] [place] [address] [place], [address], Provider Name:Zacarias Zurita , 04/10/2026 09:30:00 AM, [address] [place] [address] [place], [address], Progress Notes * Jarett MAYNARDDOB: [birth year] (79 yo M)Acc No.[id number]:04/09/2025 Progress Notes Patient: Jarett FELIZ Provider: Che Zurita MD :1945 A ge:79 Y S ex:Male Date:04/09/2025 [facility] Subjective: * Chief Complaints: * A nnual Exam * HPI: D epression Screening: He returns to the office at the age of 79 for his annual visit. He is now retired and finds life somewhat boring. He regrets that he has no money. The pain in his right knee has completely resolved. He is being treated with amlodipine. He insisted on pain for the brand name which is $1100 a month. He says generics do not work also 1 time a generic given to him at the [facility] did control his blood pressure without symptoms. Is going to try and get that generic from the same fertilizer applicator. I gave him a written prescription for the amlodipine today. He has been to the drawstring knotter recently. There is a skin nodule on the vertex of his scalp that needs to be watched but no obvious malignancies were noted. He has an appointment in the near future to see neurology to manage his Parkinson's disease. PHQ-9 L ittle interest or pleasure in doing things?Not at all F eeling down, depressed, or hopeless N ot at all T rouble falling or staying asleep, or sleeping too much N ot at all F eeling tired or having little energy N ot at all P oor appetite or overeating N ot at all F eeling bad about yourself or that you are a failure, or have let yourself or your family down N ot at all T rouble concentrating on things, such as reading the newspaper or watching television N ot at all M oving or speaking so slowly that other people could have noticed; or the opposite, being so fidgety or restless that you have been moving around a lot more than usual N ot at all T houghts that you would be better off or of hurting yourself in some way N ot at all T otal Score 0 C OVID-19 Screening: Questions H ave you had any new onset fever, chills, cough, congestion, sore throat, shortness of breath, muscle aches? N o F all Risk Screening: Fall History H ave you had any falls with injury in the past year? N o H ave you had two or more falls in the past year? N o F all Risk Assessment: N o falls in the past year S MOHSEN Questions: SDOH Questions I n the past year have you been worried about losing your housing? N o I n the past year have you or any family members you live with been unable to get any of the following when it was really needed? Check all that apply: N one * ROS: G eneral/Constitutional: pain o nly [...] Muscle aches d enies. P ainful joints d enies. S ciatica d enies. W eakness d enies. S kin: Itching d enies. R edgardo d enies. S kin lesion(s)?Verrucous nodule Vertex of scalp. N eurologic: Difficulty speaking d enies. D [...] ggressive non-smoker Naveen garcia was born in [place]. He has been to [facility] for 6 years. 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 He has no children.He lives with his at home. He retired January 22, 2025. * Medications: T akingCarbidopa-Levodopa 25-100 MG Tablet 1 tablet as needed Orally Two times a Week Norvasc 10 MG Tablet TAKE ONE TABLET BY MOUTH EVERY DAY Taking Carbidopa- Levodopa 25-100 MG Tablet 1 tablet as needed Orally Two times a Week Taking Norvasc 10 MG Tablet TAKE ONE TABLET BY MOUTH EVERY DAY DiscontinuedTylenol Gabapentin 100 MG Capsule 1 capsule at bedtime Orally three times a day hydroCHLOROthiazide 12.5 MG Capsule 1 capsule in the morning Orally Once a day Tamsulosin HCl 0.4 MG Capsule 1 capsule Orally Once a day Medication List reviewed and reconciled with the patientDiscontinued Tylenol Discontinued Gabapentin 100 MG Capsule 1 capsule at bedtime Orally three times a day Discontinued hydroCHLOROthiazide 12.5 MG Capsule 1 capsule in the morning Orally Once a day Discontinued Tamsulosin HCl 0.4 MG Capsule 1 capsule Orally Once a day Medication List reviewed and reconciled with the patient * Allergies: N o Known Drug AllergyNo Known Food Allergyno[Allergies Verified] Objective: * Vitals: H t: 65, Wt:170, BMI:28.29, BP:134/68, HR:49, Temp:98.0, Wt-k.11. * P ast Orders: I maging:MR head/brain wo con (Order Date - 03/23/2025) (Performed Date - 03/23/2025) * Examination: G eneral Examination: GENERAL APPEARANCE: [...] xtremities unremarkable, no clubbing, cyanosis or edema, Normal range of motion right knee without effusion. PERIPHERAL PULSES: n ormal. NEUROLOGIC: a lert and oriented, cranial nerves 2-12 grossly intact, deep tendon reflexes 2+ symmetrical, motor strength normal upper and lower extremities, sensory exam intact. PSYCH: a lert, oriented. Assessment: * Assessment: 1. H ypertension - I10 (Primary) N otes :His blood pressure today is 110/70. No change in his regimen was needed. 2 . R ight anterior knee pain - M25.561 N otes :His pain is much improved and he is no longer taking pain medication. 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 3 . O verweight - E66.3 N otes :He is slightly over weight and is trying to consume a healthy diet and lose weight. I recommended he try and stabilize his weight at this point without weight gain. 4 . B jamar cell carcinoma (BCC), unspecified site - C44.91 N otes :No new skin cancers were noticed today. 5 . B PH (benign prostatic hyperplasia) - N40.0 N otes :He continues to rise from sleep once or twice a night to urinate depending upon fluid intake. We reviewed the lifestyle modifications he can make to reduce nocturia. 6 . P rimary Parkinson's disease - G20.A1 Plan: * Treatment: 2. O thers Continue Norvasc Tablet, 10 MG, TAKE ONE TABLET BY MOUTH EVERY DAY. * Procedure Codes: * Preventive Medicine: Counseling: C are goal follow-up plan: Counseling for abnormal BMI given Y es Above Normal BMI Follow-up D ietary management education, guidance, and counseling, Dietary needs education * Follow Up: 3 Months (Reason: OV) * Images: * Sign off status: Completed true * Provider: Che Zurita MD Date: 0 04/09/2025 Generated for Jonai alesia/Nya/Kristinsmitting on: 04/23/2025 01:23 PM EDT History and [...] throat, shortness of breath, muscle aches?: No SDOH Questions SDOH Questions In the [...] unremark able, no clubbing, cyanosis or edema, Normal range of motion right knee without effusion LYMPH NODES: no enlarged lymph no roberto,spleen normal RECTAL EXAM: not examined PSYCH: alert, oriented ORAL CAVITY: normal, unremarkable
--- NOTE | 2025-04-23 12:23 | A.OFFVIS_ITS ---
Intake Visit Reasons: AFTER MRI Allergies No Known Allergies Allergy (Verified 10/07/23 09:05) HPI Comments Details: 79 years old man with Parkinson's disease started around 2022 affecting his right hand and arm. He is presenting with a tremor in his right hand and gradually increasing motor slowness. The symptoms commenced around September 2022, with noticeable progression throughout the spring when his handwriting started deteriorating, particularly affecting his signature due to his dominant right hand. 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 He also reported increased difficulty with mobility; since October 2022, he has experienced knee pain, resolved via injection but continues to have difficulty rising from low chairs, resulting in a reliance on his arms for assistance. The patient takes medication for hypertension, which contributes to frequent urination, but he denies experiencing falls or using pain medication. [facility] Medical History Right inguinal hernia COVID-19 vaccine series completed Arthritis Skin cancer HTN (hypertension) Surgical History History of right inguinal hernia repair (07/27/23) Hx of cataract extraction Social History Are you a primary customer care specialist to a significant other at home: No Do you presently have visiting nurse or other home services: No Patient Tobacco Use Status: Never used Tobacco Review of Systems Const Details: - Neurological: Reports tremor in the right hand, slowness in walking. Denies falls. - Musculoskeletal: Reports knee pain in October 2022, improved with injection. Reports difficulty rising from chairs. - Genitourinary: Reports frequent urination linked to hypertension medication. - Sleep: Denies difficulty sleeping, reports occasional nightmares. - Psychological: Denies difficulty sleeping or significant memory issues. Physical Exam Neuro Other: Mental Status: Alert and oriented to person, place, and time. Normal attention. Normal spontaneous speech, fluency, and comprehension. No obvious issues with mood and memory. Affect is appropriate. Cranial Nerves: CN II: Visual austin full to confrontation, visual acuity intact. CN III, IV, : Pupils equal, round, reactive to light and accommodation. Extraocular movements are normal. CN V: Facial sensation is normal. CN VII: Facial movements symmetrical. CN VIII: Hearing intact to bedside conversation is normal. CN IX, X: Palate elevates symmetrically. CN XI: Shoulder shrug and head turn symmetrical. CN XII: Tongue midline without atrophy or fasciculations. Slightly decreased facial expression blinking. Mild right hand resting tremor. Bilateral decreased arm swing with slightly stooped posture and slow paced walk. Speech: Normal; no dysarthria or tremor. Assessment & Plan Assessment & Plan (1) Parkinson disease: Comment: MRI brain WO at [facility] [place] in Feb 2025: Mild diff atrophy, mild to mod chronic MVD Code(s): G20.A1 - Parkinson's disease without dyskinesia, without mention of fluctuations Category: Medical Qualifiers: Dyskinesia presence: without dyskinesia Fluctuating manifestations: without fluctuating manifestations Qualified Code(s): G20.A1 - Parkinson's disease without dyskinesia, without mention of fluctuations (2) Cerebral microvascular disease: Code(s): I67.89 - Other cerebrovascular disease Category: Medical Plan Impression: a: Parkinson disease, mild, EDSS 1 b: 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
--- OUTSIDE RECORDS SUMMARY | 2025-04-23 13:23 | XMS_ITS | Clinical Summary ---
Author Organization [facility] Address [address] [address] Phone Care Team Providers Care Milk Pickup Driver Name Role Phone Bijan Holland MD Primary Care Provider [phone] Medications triamcinolone acetonide 0.025 % cream 1 [...] Medical Devices Not on file Insurance [address] [place], [place] [id number] [place], [place] [address] [place], [place] [address] O O Care Teams Milk Pickup Driver Relationship Specialty Start Date End Date Bijan Holland MD PCP - General 07/28/17 Additional Source Comments The information contained in this document represents components of the legal health record. It is not the complete legal health record.[facility]
--- OUTSIDE RECORDS SUMMARY | 2025-04-23 13:23 | XMS_ITS | Patient Health Record ---
Author Organization Zacarias Zurita III, MD Address [address] [place] [address] Care Team Providers Care Director Of Corporate Communications Name Role Phone Dr. Zacarias Zurita III Primary Care Provider Allergies Allergen (clinical drug ingredient) Drug/Non Drug Allergy documented on EMR Reaction Allergy Type Onset Date Status No Known Drug Allergy Unknown Drug Allergy Active No Known Food Allergy Unknown Drug Allergy Active Results Component Value Reference Range Notes Complete Blood Count Auto Di ff Reviewed date:11/01/2024 04:29:43 PM Interpretation: Performing Lab:[facility], [address] [place] [address] Notes/Report: White Blood Count 7.3 4.8-10.8 X10*3/uL [...] NRBC Abs Auto 0.000 0.0-0.012 X10*3/uL Comprehensive [place]. Panel Fa st Reviewed date:11/01/2024 04:29:43 PM Interpretation: Performing Lab:[address] [address] Notes/Report: Sodium 143 135-145 mmol/L Potassium 3.7 [...] Panel Reviewed date:11/01/2024 04:29:43 PM Interpretation: Performing Lab:[address] [address] Notes/Report: Triglycerides 87 <150 mg/dL Desirable Triglyceride: [...] date:12/02/2024 07:54:37 PM Interpretation: Performing Lab: Notes/Report: [address] [address] XRay Report Signed Patient: Jarett Maynard MR#: [id number] [birth year] : 1945 Acct:[id number] Age/Sex: 79 / M ADM Date: 11/16/24 Loc: HO.GABRIELLA Attending Dr: Zacarias Zurita MD Ordering Physician: Zacarias Zurita MD Date of Service: 11/16/24 Procedure(s): XR lumbar spine 2-3V Accession Number(s): [id number] cc: Zacarias Zurita MD EXAMINATION: XR LUMBOSACRAL [...] signed by Elias Munroe MD in OV> 11/21/24718 DD/ 49 TD/TT: 11/16/241613 Bottling Attendant: [place] [address] XRay Report Signed Patient: Sherron Maynard MR#: [id number] [birth year] : 1945 Acct:[id number] Age/Sex: 79 / M ADM Date: 11/16/24 Loc: HO.XRAY Attending Dr: Zacarias Zurita MD Ordering Physician: Zacarias Zurita MD Date of Service: 11/16/24 Procedure(s): XR lum bar spine 2-3V Accession Number(s): [id number] cc: Zacarias Zurita MD EXAMINATION: XR LUMBOSACRAL [...] Munroe MD in OV> 11/21/24 0719 DD/ 49 TD/TT: 11/16/24 161 Bottling Attendant: XR sacrum coccyx min 2V Reviewed date:12/02/2024 07:54:37 PM Interpretation: Performing Lab: Notes/Report: [address] [address] XRay Report Signed Patient: Jarett Maynard MR#: [id number] [birth year] : 1945 Acct:[id number] Age/Sex: 79 / M ADM Date: 11/16/24 Loc: HO.XRAY Attending Dr: Zacarias uZrita MD Ordering Physician: Zacarias Zurita MD Date of Service: 11/16/24 Procedure(s): XR sacrum coccyx min 2V Accession Number(s): [id number] cc: Zacarias Zurita MD EXAMINATION: XR SACRUM [...] 11/21/24 0720 DD/ 1550 TD/TT: 11/16/24 1614 Bottling Attendant: [address] [address] XRay Report Signed Patient: Sherron Maynard MR#: [id number] [birth year] : 1945 Acct:[id number] Age/Sex: 79 / M ADM Date: 11/16/24 Loc: HO.XRAY Attending Dr: Zacarias Zurita MD Ordering Physician: Zacarias Zurita MD Date of Service: 11/16/24 Procedure(s): XR sac rum coccyx min 2V Accession Number(s): [id number] cc: Zacarias Zurita MD EXAMINATION: XR SACRUM [...] 11/21/24 0720 DD/ 1550 TD/TT: 11/16/24 1614 Bottling Attendant: XR Knee Colby 4V Reviewed date:12/02/2024 07:54:37 PM Interpretation: Performing Lab: Notes/Report: [place] [address] XRay Report Signed Patient: Jarett Maynard MR#: [id number] 78 : 1945 Acct:[id number] Age/Sex: 79 / M ADM Date: 11/16/24 Loc: HO.GABRIELLA Attending Dr: Zacarias Zurita MD Ordering Physician: Zacarias Zurita MD Date of Service: 11/16/24 Procedure(s): XR Knee Colby 4V Accession Number(s): [id number] cc: Zacarias Zurita MD EXAMINATION: X-ray knee [...] signed by Elias Munroe MD in OV> 11/21/24731 DD/ 49 TD/TT: 11/16/241613 Bottling Attendant: [address] [address] XRay Report Signed Patient: Sherron Maynard MR#: [id number] [birth year] : 1945 Acct:[id number] Age/Sex: 79 / M ADM Date: 11/16/24 Loc: HO.XRAY Attending Dr: Zacarias Zurita MD Ordering Physician: Zacarias Zurita MD Date of Service: 11/16/24 Procedure(s): XR Kne e Colby 4V Accession Number(s): [id number] cc: Zacarias Zurita MD EXAMINATION: X-ray knee [...] Munroe MD in OV> 11/21/24 0732 DD/ TD/TT: 11/16/24 1614 Bottling Attendant: MR head/brain wo con Reviewed date:03/26/2025 04:47:47 AM Interpretation: Performing Lab: Notes/Report: [address] [address] Magnetic Resonance Report Signed Patient: Jarett Maynard MR#: [id number] 78 : 1945 Acct:[id number] Age/Sex: 79 / M ADM Date: 03/23/25 Loc: HO.MRI Attending Dr: Selwyn Jacobson MD Ordering Physician: Selwyn Jacobson MD Date of Service: 03/23/25 Procedure(s): MR head/brain wo con Accession Number(s): [id number] cc: Zacarias Zurita MD; Selwyn Jacobson MD EXAMINATION: MR BRAIN WITHOUT CONTRAST CLINICAL INFORMATION: Parkinson's disease without dyskinesia. COMPARISON: None available. TECHNIQUE: MRI of the brain was obtained using routine sequences without contrast. FINDINGS: No restricted diffusion. No acute intracranial hemorrhage, mass effect, midline shift, hydrocephalus or herniation. Arita-white matter differentiation is normal. Multiple old lacunar infarcts with a cribriform pattern centered the lenticular nuclei and to a lesser extent thalami. Multifocal patchy and punctate deep periventricular white matter and subcortical white matter hyperintense T2 FLAIR signal involving centrum semiovale and mae radiata and to a lesser extent bones and right cerebellum. No signal abnormality within the substantia nigra related to absent swallow tail sign. Prominence of the extra-axial CSF spaces cerebral sulci and ventricles. Flow-void signal within the main cerebral vessels is normal. No signal abnormality or volume loss in the hippocampi. Sellar/suprasellar region demonstrated no signal abnormality or masses. Craniocervical junction demonstrates normal position of the cerebellar tonsils. MR/MR head/brain wo con IMPRESSION: No signal abnormality in the substantia nigra. No acute stroke/nonhemorrhagic ischemia or acute intracranial hemorrhage. 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 Dictated By: Elias Lane MD Signed By: <Electronically signed by Elias Munroe MD in OV> 03/25/25 1005 DD/ 1018 TD/TT: 03/23/25 1047 Bottling Attendant: [place] [address] Magnetic Resonance Report Signed Patient: Sherron Maynard MR#: [id number] 78 : 1945 Acct:[id number] Age/Sex: 79 / M ADM Date: 03/23/25 Loc: HO.MRI Attending Dr: Santo Jacobson MD Ordering Physician: Selwyn Jacobson MD Date of Service: 03/23/25 Procedure(s): MR head/brain wo con Accession Number(s): [id number] cc: Zacarias Zurita MD; Selwyn Jacobson MD EXAMINATION: MR BRAIN WITHOUT CONTRAST CLINICAL INFORMATION: Parkinson's disease without dyskinesia. COMPARISON: None available. TECHNIQUE: MRI of the brain was obtained using routine sequences without contrast. FINDINGS: No restricted diffusion. No acute intracrania l hemorrhage, mass effect, midline shift, hydrocephalus or herniation. Arita-white matter differentiation is normal. Multiple old lacunar infarcts with a cribriform pattern centered the lenticular nuclei an d to a lesser extent thalami. Multifocal patchy an d punctate deep periventricular white matter and subcortical white matter hyperintense T2 FLAIR signal involving centrum semiovale and mae radiata and to a lesser extent bones and right cerebellum. No signal abnormalit y within the substantia nigra related to absent swallow tail sign. Prominence of the extra-axial CSF spaces cerebral sulci and ventricles. Flow-void signal wit hin the main cerebral vessels is normal. No signal abnormalit y or volume loss in the hippocampi. Sellar/suprasellar region demonstrated no signal abnormality or masses. Craniocervical junct ion demonstrates normal position of the cerebellar tonsils. MR/MR head/brain wo con IMPRESSION: No signal abnormalit y in the substantia nigra. No acute stroke/nonhemorrhagic ischemia or acute intracranial hemorrhage. Small vessel occlusi ve disease. Frontal temporal lob e atrophy Electronically inderjit d by: Elias Daugherty MD 03/25/2025 10:05 AM EDT Dictated By: Elias Rico MD Signed By: <Electronically signed by Elias Munroe MD in OV> 03/25/25 1005 DD/ 1018 TD/TT: 03/23/25 1047 Bottling Attendant: Reason For Referral Reason Consult and Treat Diagnosis 1 Radicular pain of sa gloria (M54.18) Diagnosis 2 Numbness (R20.0) Referral Organization Zacarias Zurita III, MD Referring Provider First Name Zacarias Referring Provider Last Name Yuidth Referring Provider Speciality Internal M edicine Referred Provider Neurology [facility] Referred Provider Specialty Neurology General Notes [...] Referring Provider Speciality Internal edicine Referred Provider [facility] Referred Provider Specialty Orthopedic S narayanery General Notes D, Radha 12/03/2024 09:14:28 AM >Referral, cover sheet and Xr knee faxed., D, Radha 12/04/2024 09:39:38 AM > Patient was able to get an appointment for 12/05/24 @ 10:15am. [facility] is requesting a CD of the Xr [...] Yudith Referring Provider Speciality Internal edicine Referred Organization [facility] Referred Provider [facility], [facility] Referred Address [address] [place] [id number], Referred Provider Specialty Pain Medicin e General Notes D, Radha 12/03/2024 09:22:13 AM > Referral and Xr's faxed. to [facility] Referral Priority Routine Reason tremor and right arm weakness ? new onset parkinson's disease Diagnosis 1 Tremor (R25.1) Diagnosis 2 Right arm weakness ( R29.898) Diagnosis 3 Parkinson disease, s ymptomatic (G20.A1) Referral Organization Zacarias Zurita III, MD Referring Provider First Name Zacarias Referring Provider Last Name Yuidth Referring Provider Speciality Internal M edicine Referred Provider Selwny Jacobson Referred Provider Specialty Neurology General Notes Kelly Monroe CMA 01/09 11:31:46 AM >called Dr Jacobson office [phone] made pt appt with Dr Jacobson for [...] 10 MG TAKE ONE TABLET BY M OUT EVERY DAY Active Immunizations Vaccine Route Administration Date Status Comme nts COVID PFIZER Unknown 11/16/2020 Administered COVID PFIZER Unknown 10/19/2020 Administered COVID PFIZER Unknown 05/22/2021 Administered Influenza, quad IM Intramuscular 05/20/2022 Administered Zostavax Unknown 06/15/2013 Administered Flu-IIv4pf Unknown 06/15/2013 Administered Influenza no Preserv 3 and > Unknown 07/29/2009 Administered PPV 23 Unknown 12/22/2012 Administered Tdap Unknown 12/22/2012 Administered PCV13 Unknown 04/09/2016 Administered COVID Pfizer Bivalent Unknown 08/13/2022 Administered Influenza no Preserv 3 and > Unknown 04/18/2014 Administered Fluzone High-Dose (HD-IIV3) Unknown 04/09/2016 Administered Influenza no Preserv 3 and > Unknown 08/12/2010 Administered Fluzone High-Dose (HD-IIV3) Unknown 08/25/2018 Administered Flu-IIv4pf Unknown 04/04/2015 Administered COVID-19 Moderna SPIKEVAX Unknown 08/18/2023 Administer ed Social History Tobacco Use: Social History Observation [...] Problem Status W/U Status Risk Notes Problem 186086750 Overweight (E66.3) Active confirmed He is slightly over weight and is trying to consume a healthy diet and lose weight. I recommended he try and stabilize his weight at this point without weight gain. Problem Hypertension (62475058) Hypertension (I10) Active confirmed His blood pressure today is 110/70. No change in his regimen was needed. Problem Benign prostatic hyperplasia (002996115) BPH (benign prostatic hyperplasia) (N40.0) Active confirmed He continues to rise from sleep once or twice a night to urinate depending upon fluid intake. We reviewed the lifestyle modifications he can make to reduce nocturia. Problem 187570495 History of skin cancer (Z85.828) Active confirmed No new lesions were noted today. Problem 330440417 Right inguinal hernia (K40.90) Active confirmed The hernia has been repaired. He will call me if anythingThe chest infection or bleeding occurs. Problem 281140469 Right anterior knee pain (M25.561) Active confirmed His pain is much improved and he is no longer taking pain medication. 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 Problem 266984788 Basal cell carcinoma (BCC), unspecified site (C44.91) Active confirmed No new skin cancers were noticed today. Problem 93326991 Primary Parkinson's disease (G20.A1) Active confirmed Vital Signs Heart Rate 49 /min 04/09/2025 Temperature 98.0 degrees Fahrenheit 04/09/2025 Blood pressure diastolic 68 mm Hg 04/09/2025 Height 65 in 04/09/2025 Blood pressure systolic 134 mm Hg 04/09/2025 Weight 170 lbs 04/09/2025 BMI 28.29 kg/m2 04/09/2025 Encounters Encounter Location Date Provider Diagnosis Zacarias Zurita III, MD [address] [place] [address] [place] [address] 06/28/2024 Zacarias Zurita Hypertension I10 ; Overweight E66.3 ; Right inguinal hernia K40.90 and History of skin cancer Z85.828 Zacarias Zurita III, MD [address] [place] [address] [place] [address] 11/01/2024 Zacarias Zurita Hypertension I10 ; Right inguinal hernia K40.90 ; BPH (benign prostatic hyperplasia) N40.0 ; History of skin cancer Z85.828 and Overweight E66.3 Zacarias Zurita III, MD [address] [place] [address] [place] [address] 11/16/2024 Zacarias Zurita Right anterior knee pain M25.561 ; Acute midline low back pain with right-sided sciatica M54.41 ; Right inguinal hernia K40.90 ; Hypertension I10 ; BPH (benign prostatic hyperplasia) N40.0 and Overweight E66.3 Zacarias Zurita III, MD [address] [place] [address] [place] [address] 11/28/2024 Zacarias Zurita Acute midline low ba ck pain with right-sided sciatica M54.41 ; Right anterior knee pain M25.561 ; Overweight E66.3 ; Basal cell carcinoma (BCC), unspecified site C44.91 ; Right inguinal hernia K40.90 and BPH (benign prostatic hyperplasia) N40.0 Zacarias Zurita III, MD [address] [place] [address] [place] [address] 12/12/2024 Zacarias Zurita Right anterior knee pain M25.561 ; Overweight E66.3 ; Hypertension I10 ; BPH (benign prostatic hyperplasia) N40.0 and Right inguinal hernia K40.90 Zacarias Zurita III, MD [address] [place] [address] [place] [address] 01/09/2025 Zacarias Zurita Right anterior knee pain M25.561 ; Hypertension I10 ; Right inguinal hernia K40.90 ; BPH (benign prostatic hyperplasia) N40.0 and Overweight E66.3 Zacarias Zurita III, MD [address] [place] [address] [place] [address] 02/20/2025 Zacarias Zurita Right anterior knee pain M25.561 ; Hypertension I10 ; BPH (benign prostatic hyperplasia) N40.0 ; Overweight E66.3 ; Right inguinal hernia K40.90 and History of skin cancer Z85.828 Zacarias Zurita III, MD [address] [place] [address] [place] [address] 04/09/2025 Zacarias Zurita Right anterior knee pain M25.561 ; Hypertension I10 ; Overweight E66.3 ; Basal cell carcinoma (BCC), unspecified site C44.91 ; BPH (benign prostatic hyperplasia) N40.0 and Primary Parkinson's disease G20.A1 Zacarias Zurita III, MD [address] [place] [address] [place] [address] 06/28/2024 Zacarias Zurita Assessments Encounter Date Diagnosis (ICD Code) Assessment Notes Treatment Notes Treatment Clinical Notes 06/28/2024 Overweight (ICD-10 - E66.3) He has [...] dose. An injection in the knee at [facility] 1 or 2 days [...] dose. An injection in the knee at [facility] has markedly improved the pain [...] change in his regimen was needed. 04/09/2025 Right anterior knee pain (ICD-10 - M25.561) His pain is much improved and he is no longer taking pain medication. 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 06/28/2024 Right inguinal hernia (ICD-10 - K40.90) [...] he can make to reduce nocturia. 04/09/2025 Overweight (ICD-10 - E66.3) He is slightly over weight and is trying to consume a healthy diet and lose weight. I recommended he try and stabilize his weight at this point without weight gain. 06/28/2024 History of skin cancer (ICD-10 - [...] No new skin cancers were noticed today. 11/01/2024 Overweight (ICD-10 - E66.3) He has [...] if anythingThe chest infection or bleeding occurs. 04/09/2025 BPH (benign prostatic hyperplasia) (ICD-10 - N40.0) He continues to rise from sleep once or twice a night to urinate depending upon fluid intake. We reviewed the lifestyle modifications he can make to reduce nocturia. 11/16/2024 Overweight (ICD-10 - E66.3) He has [...] Z85.828) No new lesions were noted today. 04/09/2025 Primary Parkinson's disease (ICD-10 - G20.A1) Plan Of Treatment Pending Test Test Name Order Date PROFILE, FASTING (COMPREHENSIVE METABOLI C) 08/20/2022 PROFILE, FASTING (COMPREHENSIVE METABOLI C) 04/23/2021 PROFILE, FASTING (COMPREHENSIVE METABOLI C) 02/20/2025 PROFILE, FASTING (COMPREHENSIVE METABOLI C) 06/28/2024 PROFILE, FASTING (COMPREHENSIVE METABOLI C) 10/26/2023 LIPID PANEL 08/20/2022 LIPID PANEL 04/23/2021 PSA, TOTAL 10/26/2023 PSA, TOTAL 08/20/2022 PSA, TOTAL 02/20/2025 PSA, TOTAL 04/23/2021 CBC w DIFF 08/20/2022 CBC w DIFF 02/20/2025 CBC w DIFF 04/23/2021 Echocardiogram 04/22/2023 CBC WITH AUTO DIFF 10/26/2023 CBC WITH AUTO DIFF 06/28/2024 Lipid Panel 06/28/2024 Lipid Panel 10/26/2023 Lipid Panel 02/20/2025 Next Appt Details Provider Name:Zacarias Donovan Yudith , 07/11/2025 09:00:00 AM, [address] [place] [address] [address], [place], [address], Provider Name:Zacarias Donovan Yudith , 04/10/2026 09:30:00 AM, [address] [place] [address] [address], [place], [address], Insurance Providers Payer Name Payer Address Payer Phone Subscriber Number Group Number Insured Name Patient Relationship to Insured Coverage Start Date Coverage End Date MEDICARE NGS [address] [place] [phone] [id number] Jarett Maynard Self - patient is the insured Medical (General) History Medical History History ICD Code Hypertension I10 skin cancer scal;p 2006 right inguinal hernia obesity Skin lesion left forearm site May 13 Obesity Parkinson's disease Surgical History Surgery Date(Month/Year) Cataract surgery 2013 Right inguinal Herniorrhaphy 07/27/23 arm and nose basal cell removal 12/2021 Skin lesion on his back 2019 Excision of skin cancer from scalp 2017 Hospitalization History Reason Date(Month/Year) No history
--- OUTSIDE RECORDS SUMMARY | 2025-04-23 13:24 | XMS_ITS | Patient Health Record ---
Author Organization [facility] Address [address] [place] [address] Care Team Providers Care Gravity Manager Name Role Phone Zacarias Zurita MD Primary [...] Problem Status W/U Status Risk Notes Problem 990255802 Colon cancer screening (Z12.11) Active confirmed Problem 207182573 Encounter for other preprocedural examination (Z01.818) Active confirmed Problem 54445965712223312 long-term current use of diuretic (Z79.899) Active confirmed Plan Of Treatment Future Test Test Name Order Date COLONOSCOPY 07/30/2021 Insurance Providers Payer Name Payer Address Payer Phone Subscriber Number Group Number Insured Name Patient Relationship to Insured Coverage Start Date Coverage End Date [facility] [address] [facility] [place] [phone] [id number] JANIS LEROY Self - patient is the insured Medical (General) History Medical History History ICD Code hypertension Skin cancer/lesions right inguinal hernia Surgical History Surgery Date(Month/Year) excision of skin cancer from [facility] 2017
== END 2025-04-23 12:38 | disposition home or self-care (01) ==
LOC: HO.HSM 12:18
PROVIDERS: PCP Internal Medicine Medical Oncology; Visit Provider Psychiatry & Neurology Neurology
DX: G20.A1 Parkinson's disease without dyskinesia, without mention of fluctuations (principal); I67.89 Other cerebrovascular disease
CPT/HCPCS: 99214

== ENCOUNTER → 2025-04-23 12:18 | Outpatient (BNVA) | payer MEDICARE, SELFPAY | PROVIDERS: PCP Internal Medicine Medical Oncology; Visit Provider Psychiatry & Neurology Neurology | DX: G20.A1 Parkinson's disease without dyskinesia, without mention of fluctuations (principal); I67.89 Other cerebrovascular disease | CPT/HCPCS: 99212 ==